=== PATIENT | female | born 1955 | race Caucasian/White ===

== ENCOUNTER 2019-06-21 15:39 | Outpatient (CLI) | payer OTHER, SELFPAY ==
[2019-06-21 16:39] LABS: Hemoglobin A1C 6.9 % (<5.7)
== END 2019-06-21 15:40 | disposition home or self-care (01) ==
LOC: ANHLAB 15:41
PROVIDERS: PCP Family Medicine Adolescent Medicine; Visit Provider Family Medicine Adolescent Medicine
DX: E11.9 Type 2 diabetes mellitus without complications (principal)
CPT/HCPCS: 36415; 83036

== ENCOUNTER 2019-09-19 20:06 | Emergency (ER) | payer OTHER, SELFPAY ==
--- NOTE | ~2019-09-19 | CT_ITS ---
EXAMINATION: CT brain wo con DATE: 09/19/2019 21:02 INDICATION: Facial numbness TECHNIQUE: Computed tomography (CT) of the head was performed without intravenous contrast. Sagittal and coronal reconstructions were performed. The mA was adjusted according to patient size. Iterative reconstruction technique was employed. The dose-length product was 681.00 mGy-cm. COMPARISON: head CT dated 05/04/2018 FINDINGS: No acute intracranial hemorrhage, acute infarction or abnormal extra axial fluid collection. Ventricl es are normal and symmetric. No mass/mass effect. The orbits, paranasal sinuses and mastoid air cells are normal. IMPRESSION: 1. Normal brain. No acute intracranial process. Reviewed, dictated and finalized at location A.
[2019-09-19 20:11] VITALS: BP 165/114; PULSE 100; RESP 14; TEMP 36.5; O2SAT 98
--- NOTE | 2019-09-19 20:33 | ED.GENADULT ---
HPI - General Adult General Chief complaint: Neuro Symptoms/Deficit Stated complaint: left sided numbness Time Seen by Provider: 09/19/19 20:33 Source: patient and family Mode of arrival: ambulatory Limitations: no limitations History of Present Illness HPI narrative: Patient is a 64-year-old female who presents for evaluation of lip numbness that is now resolved. Patient states that she was eating dinner approximately 1 hour ago when she felt some numbness in her lip on the left. Patient denies any vision changes, difficulty chewing or difficulty speaking. There were no changes in her speech. Patient went to the restroom to see if she had any signs of a stroke and she did not notice any facial droop. Patient states the lip numbness lasted approximately 5 minutes before resolving. No associated chest pain. Patient decided to seek care at the emergency department and started to experience a left-sided headache behind her left eye, patient states that this is typical of her ocular migraines and consistent with migraine history. No thunderclap sensation. No visual changes. No numbness in her arms or lower extremities. No difficulty with ambulation. Patient has no history of stroke, the patient son does have a history of 2 strokes, possible moyamoya diagnosis and pacemaker. Related Data Allergies Allergy/AdvReac Type Severity Reaction Status Date / Time morphine Allergy Mild Rash Unverified 07/18/08 14:38 cefadroxil Allergy Unknown Rash Verified 06/29/17 13:22 meloxicam Allergy Unknown Rash Verified 06/29/17 13:22 NFA Allergy Unknown Uncoded 09/26/02 14:07 Review of Systems Review of Systems: Narrative: CONSTITUTIONAL: Denies fever, chills, or sweats. EYES: Denies visual changes, redness, or discharge. CARDIOVASCULAR: Denies chest pain, palpitations, or edema. RESPIRATORY: Denies cough or dyspnea. GASTROINTESTINAL: Denies abdominal pain, nausea, vomiting, or diarrhea. SKIN: Denies rash or itching. MUSCULOSKELETAL: Denies back pain, joint pain, or myalgia. NEUROLOGIC: Reports mild headache behind left eye, denies any current numbness or weakness PMFSH Past Medical History Medical History (Updated 09/19/19 @ 22:04 by Rachelle Feldman MD) Ankylosing spondylitis Arthritis Diabetes Hypertension Family History Family History (Updated 06/29/17 @ 13:29 by DOCTOR UNKNOWN) Sibling Family history of cardiovascular disease Family history of malignant neoplasm of breast Grandparent Cerebrovascular accident Family history of congestive heart failure Mother Family history of arthritis Family history of lung cancer Father Malignant neoplasm of prostate Social History Social History Smoking status: Never smoker Alcohol intake: never Gender identity (if verbalized by the patient): Female Exam Narrative: Exam Narrative: GENERAL: Awake, alert, conversant HEAD: Normocephalic, atraumatic. EYES: PERRLA and EOMI. ENT: Nares clear, no rhinorrhea or epistaxis. Mucous membranes moist. NECK: Supple. CHEST: No respiratory distress, breathing even and non labored HEART: Regular rate, sinus rhythm ABDOMEN:Non distended, non tender EXTREMITIES: Normal range of motion. No edema. SKIN: Warm, dry, no rash. NEURO:No focal deficits. Alert and oriented x3. Finger to nose intact bilaterally. EOMs intact without nystagmus. No facial droop/asymmetry noted bilaterally. Grimace intact. Intact sensation in face. Hearing intact bilaterally. Shoulder shrug intact. Strength 5/5 bilateral upper extremities. Strength 5/5 bilateral lower extremities. Reflexes 2+ patellar. Ambulatory with a narrow base, steady gait, no ataxia. Course Vital Signs Vital signs: Vital Signs Temperature 36.5 C 09/19/19 20:11 Pulse Rate 100 09/19/19 20:11 Respiratory Rate 14 09/19/19 20:11 Blood Pressure 165/114 H 09/19/19 20:11 Pulse Oximetry 98 09/19/19 20:11 Temperature 36.5 C 0
--- NOTE | 2019-09-19 20:42 | ECG_ITS ---
Measurements Intervals Advance Rate: 74 P: -7 DE: 159 QRS: 38 QRSD: 95 T: 56 QT: 393 QTc: 438 Interpretive Statements SINUS RHYTHM POOR R WAVE PROGRESSION, ANTERIOR LEADS NONSPECIFIC ST ELEVATION- ANTEROLATERAL LEADS BASELINE ARTIFACT- I, II, III, AVR, AVL, AVF BORDERLINE ECG Electronically Signed On 09-20-2019 6:58:55 CDT by Artur Childers D.O.
[2019-09-19] MEDS: SODIUM CHLORIDE 0.9% IV 1,000 ML 999 ML IV CONT (20:54)
[2019-09-19 21:05] LABS: Basophils Absolute Auto 0.1 K/mm3 (0.0-0.1); Basophils Percent Auto 0.7 % (0.2-1.2); Eosinophils Absolute Auto 0.3 K/mm3 (0-0.3); Eosinophils Percent Auto 2.9 % (0-4.4); Hemoglobin 15.1 g/dL (12.0-15.0); Immature Granulocyte Absolute 0.03 K/mm3 (0.00-0.031); Immature Granulocyte Percent A 0.3 % (0-0.5); Lymphocytes Absolute Auto 3.38 K/mm3 (0.9-3.2); Lymphocytes Percent Auto 31.9 % (18.3-44.2); Mean Corpuscular HGB Conc 32.8 g/dl (32-36); Mean Corpuscular Hemoglobin 29.6 pg (26-34); Mean Corpuscular Volume 90.2 fl (80-100); Mean Platelet Volume 9.3 fl (7.4-10.4); Monocytes Absolute Auto 0.6 K/mm3 (0.1-0.6); Monocytes Percent Auto 5.8 % (2.6-8.5); Neutrophils Absolute Auto 6.2 K/mm3 (1.3-6.7); Neutrophils Percent Auto 58.4 % (45.5-73.1); Platelet Count Result 278 k/mm3 (150-375); Red Cell Distribution Width 12.2 % (11.5-14.5); White Blood Count 10.6 K/mm3 (4.5-10.0)
[2019-09-19 21:15] LABS: INR 1.1; Prothrombin Time 13.5 Seconds (11.1-14.7)
[2019-09-19 21:16] LABS: Partial Thromboplastin Time 27.5 SECONDS (22.3-36.8)
[2019-09-19 21:19] LABS: Blood Urea Nitrogen 19 mg/dL (7-17); Calcium 9.7 mg/dL (8.4-10.2); Carbon Dioxide 28 mmol/L (22-30); Chloride 102 mmol/L (98-107); Estimated CRCL calculation 86 ml/min; Estimated Glomerular Filt Rate > 60; Glucose 159 mg/dL (65-105); Potassium 3.9 mmol/L (3.4-5.0); Sodium 137 mmol/L (137-145)
[2019-09-19 21:29] LABS: Troponin I < 0.012 ng/mL (0.000-0.034)
[2019-09-19 22:21] VITALS: BP 154/88; PULSE 84; RESP 21; O2SAT 97
--- NOTE | 2019-09-19 22:22 | PC.NURSE ---
pulled under wrong patient. corrected in the pyxis.
== END 2019-09-19 22:22 | disposition home or self-care (01) ==
PROVIDERS: Emergency Provider Emergency Medicine; PCP Family Medicine Adolescent Medicine
DX: R20.0 Anesthesia of skin (principal); M45.9 Ankylosing spondylitis of unspecified sites in spine; M19.90 Unspecified osteoarthritis, unspecified site; E11.9 Type 2 diabetes mellitus without complications; I10 Essential (primary) hypertension
CPT/HCPCS: 36415; 70450; 80048; 84484; 85025; 85610; 85730; 93005; 96360; 99284; J7030

== ENCOUNTER 2019-11-08 07:44 | Outpatient (CLI) | payer OTHER, SELFPAY ==
--- NOTE | ~2019-11-08 | CT_ITS ---
EXAMINATION: CT abdomen pelvis w con INDICATION: Right lower quadrant pain TECHNIQUE: Computed tomographic images of the abdomen and pelvis were obtained after the administrati on of 100 cc of Omnipaque 350 intravenous contrast. The dose-length product (DLP) was 1575.95 mGy-cm. Automated exposure control and iterative reconstruction technique were employed. COMPARISON: MRI, 10/19/2017 FINDINGS: Minimal dependent atelectasis is present in the lung bases. The heart size is normal. The g allbladder is surgically absent. There is mild enlargement of the common bile duct and central intrah epatic ducts which is likely due to post cholecystectomy state. Hypoattenuating lesions of the liver measure up to 3.5 cm in the right hepatic lobe. The spleen, pancreas, and adrenal glands are normal. Cysts of the kidneys measure up to 1.3 cm on the right. There is no free intraperitoneal gas or evide nce of bowel obstruction. The appendix is normal. There is mild infiltration of the small bowel mesen ivelisse with a single lymph node of the small bowel measuring up to 10 mm in short axis. There is a smal l fat-containing umbilical hernia. There is moderate lumbar spondylosis. There are bridging osteophyt es at multiple levels in the lower thoracic spine, consistent with diffuse idiopathic skeletal hypero stosis (DISH). IMPRESSION: 1. No CT correlate for the patient's symptoms. 2. Indeterminate liver lesions measuring up to 3.5 cm, likely benign in the absence of known malignan cy. Further evaluation by MRI without and with contrast is recommended. 3. Infiltration of the small bowel mesentery with single lymph node measuring upper limits of normal in size. Finding is nonspecific and could reflect mesenteric adenitis, lymphoma, or less likely metas tatic disease or desmoid. Consider low-dose follow-up CT of the abdomen in six months. Reviewed, dictated and finalized at location A. IMPRESSION: 1. No CT correlate for the patient's symptoms. 2. Indeterminate liver lesions measuring up to 3.5 cm, likely benign in the abs ence of known malignancy. Further evaluation by MRI without and with contrast i s recommended. 3. Infiltration of the small bowel mesentery with single lymph node measuring u pper limits of normal in size. Finding is nonspecific and could reflect mesente maria teresa adenitis, lymphoma, or less likely metastatic disease or desmoid. Consider low-dose follow-up CT of the abdomen in six months.
[2019-11-08 08:08] LABS: Estimated Glomerular Filt Rate > 60
== END 2019-11-08 07:45 | disposition home or self-care (01) ==
PROVIDERS: PCP Family Medicine Adolescent Medicine; Visit Provider Family Medicine Adolescent Medicine
DX: R10.31 Right lower quadrant pain (principal)
CPT/HCPCS: 36415; 74177; Q9967

== ENCOUNTER 2019-11-21 12:28 | Outpatient (CLI) | payer OTHER, SELFPAY ==
--- NOTE | ~2019-11-21 | XR_ITS ---
EXAMINATION: XR sacroiliac jt inj w imag BI DATE: 11/21/2019 13:34 INDICATION: Bilateral sacroiliac joint pain. TECHNIQUE: The procedure including the risks, benefits, and alternatives was discussed with the patie nt. Risks discussed included bleeding and infection. The patient understood the risks and agreed to p roceed. The skin overlying the left sacroiliac joint was prepped and draped in usual sterile fashion . Anesthetic was administered with 1% lidocaine subcutaneously. A 22 G needle was advanced under fl uoroscopic guidance into the joint. Injection of 1 mL of Omnipaque 240 confirmed intra-articular pos ition of the needle. Subsequently, injectate consisting of 2 mL 10 mg/mL Kenalog and 1 mL 1% lidocai ne was instilled. The needle was removed and the entry site was cleaned and dressed. The skin overlying the right sacroiliac joint was prepped and draped in usual sterile fashion. Anest hetic was administered with 1% lidocaine subcutaneously. A 22 G needle was advanced under fluoroscop ic guidance into the joint. Injection of 1 mL of Omnipaque 240 confirmed intra-articular position of the needle. Subsequently, injectate consisting of 2 mL 10 mg/mL Kenalog and 1 mL 1% lidocaine was i nstilled. The needle was removed and the entry site was cleaned and dressed. There were no immediate complications. Fluoroscopy exposure time was 0.2 minutes. The total number of images was 2. FINDINGS: Real-time fluoroscopy demonstrates the needle in the left joint. Patient's pain prior to pr ocedure:5/10. Patient's pain following the procedure: 3/10. Real-time fluoroscopy demonstrates the needle in the right joint. Patient's pain prior to procedure:5 /10. Patient's pain following the procedure: 2/10. IMPRESSION: 1. Left sacroiliac joint injection of local anesthetic and steroid with decrease in the patient's pre senting pain. 2. Right sacroiliac joint injection of local anesthetic and steroid with decrease in the patient's pr esenting pain. Reviewed, dictated and finalized at location A. IMPRESSION: 1. Left sacroiliac joint injection of local anesthetic and steroid with decreas e in the patient's presenting pain. 2. Right sacroiliac joint injection of local anesthetic and steroid with decrea se in the patient's presenting pain.
== END 2019-11-21 12:29 | disposition home or self-care (01) ==
PROVIDERS: PCP Family Medicine Adolescent Medicine; Visit Provider Family Medicine Adolescent Medicine
DX: M53.3 Sacrococcygeal disorders, not elsewhere classified (principal)
CPT/HCPCS: 27096; G0260; J3301; Q9966

== ENCOUNTER 2019-11-29 07:46 | Outpatient (CLI) | payer OTHER, SELFPAY ==
--- NOTE | ~2019-11-29 | CT_ITS ---
EXAMINATION: CT abdomen wo/w con DATE: 11/29/2019 08:16 INDICATION: Liver masses. TECHNIQUE: Computed tomography (CT) of the abdomen was performed without and with 100 mL Omnipaque 35 0 intravenous contrast. Automated exposure control and iterative reconstruction technique were employ ed. The dose-length product was 3160.53 mGy-cm. COMPARISON: CT abdomen and pelvis 11/08/2019 FINDINGS: The visualized portions of the lung bases demonstrate mild atelectasis. No pleural effusion . The heart size is normal. No pericardial effusion. There is diffuse hepatic steatosis. There are cy sts in the liver measuring up to 3.2 cm in right hepatic lobe. There are changes of cholecystectomy. The spleen, pancreas, and adrenal glands are normal. There is cortical thinning of the kidneys. There are cysts in the kidneys measuring up to 13 mm on the right. There is diverticulosis of the colon wi thout evidence of diverticulitis. There are no dilated loops of bowel. The appendix is normal. There is stable fat stranding at the root of the small bowel mesentery. There is an 11 x 17 mm mesenteric l ymph node. There is no free intraperitoneal fluid. There is moderate lumbar spondylosis. There are br idging endplate osteophytes at multiple levels in the thoracic spine, consistent with diffuse idiopat hic skeletal hyperostosis (DISH). IMPRESSION: 1. Benign cysts in the liver. 2. Stable fat stranding at the root of the small bowel mesentery, likely mesenteric panniculitis. 3. Stable mildly enlarged mesenteric lymph node, likely reactive. Reviewed, dictated and finalized at location B. IMPRESSION: 1. Benign cysts in the liver. 2. Stable fat stranding at the root of the small bowel mesentery, likely mesent joel panniculitis. 3. Stable mildly enlarged mesenteric lymph node, likely reactive.
== END 2019-11-29 07:47 | disposition home or self-care (01) ==
LOC: ANHIMG 07:47
PROVIDERS: PCP Family Medicine Adolescent Medicine; Visit Provider Family Medicine Adolescent Medicine
DX: D37.6 Neoplasm of uncertain behavior of liver, gallbladder and bile ducts (principal); K76.89 Other specified diseases of liver; R59.0 Localized enlarged lymph nodes
CPT/HCPCS: 74170; Q9967

== ENCOUNTER 2020-03-08 07:00 | Outpatient (CLI) | payer OTHER, SELFPAY ==
--- NOTE | ~2020-03-08 | CT_ITS ---
EXAMINATION: CT brain w con EXAM DATE: 03/08/2020 07:31 INDICATION: Migraine headaches. TECHNIQUE: Spiral CT of the head was performed following intravenous injection of 100 mL intravenous Omnipaque 350 solution. Axial, coronal and sagittal images were reviewed. The dose-length product ( DLP) for this examination was 605.33 mGy-cm. The exposure was tailored according to patient size, an d iterative reconstruction (ASIR) was used as additional dose reduction technique. Comparison is made to prior examination from 09/19/2019. FINDINGS: There is no acute intraparenchymal hemorrhage. No evidence of intraparenchymal brain mass lesion. No evidence of acute infarction. There is no mass effect or midline shift. The ventricles are normal in size. There are no extra-axial collections. There are no acute calvarial fractures. T he orbits are unremarkable. Soft tissue is unremarkable. The visualized sinuses and mastoid air david ls are well aerated. There are no areas of abnormal enhancement on the postcontrast images. IMPRESSION: 1. Unremarkable head CT examination. Reviewed, dictated and finalized at location A. NCED PRACTICE NURSE PSYCHOTHERAPIST
[2020-03-08 07:24] LABS: Estimated Glomerular Filt Rate > 60
== END 2020-03-08 07:01 | disposition home or self-care (01) ==
LOC: ANHIMG 07:01
PROVIDERS: PCP Family Medicine Adolescent Medicine; Visit Provider Family Medicine Adolescent Medicine
DX: G43.909 Migraine, unspecified, not intractable, without status migrainosus (principal)
CPT/HCPCS: 70460; Q9967

== ENCOUNTER 2020-06-19 08:21 | Outpatient (CLI) | payer OTHER, SELFPAY ==
[2020-06-19 17:22] LABS: Hemoglobin A1C 6.9 % (<5.7)
[2020-06-19 18:31] LABS: Alanine Aminotransferase 32 U/L (4-35); Albumin Level 3.8 g/dL (3.5-5.1); Alkaline Phosphatase 86 U/L (38-126); Anion Gap 6 mmol/L (8-16); Aspartate Amino Transferase 32 U/L (14-36); Bilirubin,Total 0.5 mg/dL (0.2-1.3); Blood Urea Nitrogen 17 mg/dL (7-17); Calcium 9.2 mg/dL (8.4-10.2); Carbon Dioxide 27 mmol/L (22-30); Chloride 105 mmol/L (98-107); Cholesterol 187 mg/dL (0-200); Estimated Glomerular Filt Rate > 60; Glucose 145 mg/dL (65-105); HDL Direct 53 mg/dL; Sodium 138 mmol/L (137-145); Triglycerides 86 mg/dL (<150)
[2020-06-19 18:43] LABS: LDL Cholesterol Direct 114 mg/dL
== END 2020-06-19 08:22 | disposition home or self-care (01) ==
LOC: ANHLAB 08:25
PROVIDERS: PCP Family Medicine Adolescent Medicine; Visit Provider Family Medicine Adolescent Medicine
DX: E11.9 Type 2 diabetes mellitus without complications (principal); E66.01 Morbid (severe) obesity due to excess calories; I10 Essential (primary) hypertension; Z13.220 Encounter for screening for lipoid disorders
CPT/HCPCS: 36415; 80053; 80061; 83036; 84443

== ENCOUNTER 2020-06-21 07:06 | Outpatient (CLI) | payer OTHER, SELFPAY ==
--- NOTE | ~2020-06-21 | CT_ITS ---
EXAMINATION: CT abdomen pelvis w con EXAM DATE: 06/21/2020 07:38 INDICATION: Enlarged mesenteric panniculitis. TECHNIQUE: Spiral CT of the abdomen and pelvis was performed following intravenous injection of 100 m L Omnipaque 350. Axial, coronal and sagittal images were reviewed. The dose-length product (DLP) fo r this examination was 1574.07 mGy-cm. The exposure was tailored according to patient size (auto mA exposure control), and iterative reconstruction (ASIR) was used as additional dose reduction techniqu e. Comparison is made to prior examination from 11/29/2019. FINDINGS: There is no interval change in the priscilla mesentery appearance, fat stranding at the mesente maria teresa root with increased number of small visible lymph nodes. The largest lymph node identified measur es 1.4 x 0.8 cm, unchanged. Superior mesenteric artery and vein extending through this are normal, no nthrombosed. There are 2 liver cysts, largest measuring 2.5 cm. The liver, spleen, adrenal glands and pancreas ar e otherwise unremarkable. There are cholecystectomy clips. Portal and splenic veins are patent. Kid neys enhance symmetrically. There is no hydronephrosis. The uterus is not identified and has likel y been surgically resected. The bladder is collapsed at time of imaging limiting evaluation. There is mild scattered arteriosclerotic disease. No retroperitoneal or pelvic lymphadenopathy. Small umbil ical fat-containing hernia. The appendix is normal. There is mild scattered colonic diverticulosis. There is no adjacent inflamm atory change to suggest diverticulitis. The stomach and small bowel are unremarkable. There is expec apolinar amount of colonic stool. No free intraperitoneal gas. The lung bases are unremarkable. Advan ruby L4-5 facet arthropathy with 4 mm anterolisthesis but no spondylolysis. Lower thoracic diffuse idi opathic skeletal hyperostosis. There are no osteoblastic or osteolytic lesions identified. IMPRESSION: 1. 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 2. Mild sigmoid diverticulosis. 3. Other chronic findings. Reviewed, dictated and finalized at location A.
== END 2020-06-21 07:07 | disposition home or self-care (01) ==
LOC: ANHIMG 07:07
PROVIDERS: PCP Family Medicine Adolescent Medicine; Visit Provider Family Medicine Adolescent Medicine
DX: D37.6 Neoplasm of uncertain behavior of liver, gallbladder and bile ducts (principal); K57.30 Diverticulosis of large intestine without perforation or abscess without bleeding; I88.0 Nonspecific mesenteric lymphadenitis
CPT/HCPCS: 74177; Q9967

== ENCOUNTER 2020-09-10 10:30 | Outpatient (RCR) | payer OTHER, SELFPAY ==
--- NOTE | 2020-07-16 16:24 | PTOPEVAL ---
INITIAL PHYSICAL THERAPY EVALUATION and PLAN OF CARE Thank you for referring Bree Montoya to [facility].? Bree is scheduled to be seen for physical therapy? 2x/week for 4 weeks. Please review, sign, date and return this plan of care DONALD. I agree with and certify that the following plan of care is medically necessary. Referring Physician Date Admitting Provider: Attending Provider: Raul Green MD Referring Provider: *PT Outpatient Evaluation Start: 07/16/20 14:53 Freq: Status: Active Protocol: Document 07/16/20 14:45 DESMOND (Rec: 07/16/20 16:23 DESMOND [id number]) Therapy Assessment Status Assessment Status Assessment Status Evaluation Outpatient Past Medical History Past Medical History Source of Past Medical History Patient Neurological History Hx Migraine Yes: will cause numbness in face,ocular migraines Cardiovascular History Hx Hypertension Yes Gastrointestinal History Hx Cholecystectomy Yes: 20 yrs ago Hx Gastroesophageal Reflux Disease Yes Musculoskeletal History Hx Fibromyalgia Yes Hx Orthopedic Surgery Yes: R calcaneus - bone spur Hx Other Musculoskeletal Disorders Yes: ankylosing spondylitis, DISH-spurring spine together Endocrine History Hx Diabetes Yes Reproductive History Hx Section Yes Hx Hysterectomy Yes Evaluation Information Problem Diagnosis LBP - piriformis muscle pain Onset worsening last 5 years Subjective Information Has had DISH for 20 plus years Query Text:As Reported By Patient/ , ankylosis spondylitis x 10 Family years - SIJ pain for at least 10 pain - worsening last 5 years - did traumatize - L ischial tuberosity - from sitting in a chair for a prolonged period of time. Has has had SIJ injections in November - didn't help. Sitting and walking both aggrevate symptoms. Unable to stand for any length of time. Heat helps it but never goes away. Walking limited from mammography building to hospital. Does see chiropractor - feels L side is higher - after an adjustment feels better for a few weeks. Deep tissue massage does help tempora
--- NOTE | 2020-08-05 09:05 | PCPTNOTE ---
Patient called & cancelled scheduled appointment this date due to work. Will continue per POC.
--- NOTE | 2020-08-15 17:07 | PTOPEVAL ---
PHYSICAL THERAPY RE EVALUATION and UPDATED PLAN OF CARE Thank you for referring Bree Montoya to [facility].? Bree has been seen x 8 visits and is making progress towards goals, but they have not been met. Bree is scheduled to be seen for physical therapy?2x/week for 4 weeks. Please review, sign, date and return this plan of care DONALD. I agree with and certify that the following plan of care is medically necessary. Referring Physician Date Admitting Provider: Attending Provider: Raul Green MD Referring Provider: Therapy Assessment Status Assessment Status Assessment Status Re-evaluation Evaluation Information Problem Diagnosis LBP - piriformis muscle pain Subjective Information Yamilet reports that she is doing Query Text:As Reported By Patient/ more patient care lately. Family Increased discomfort present in L buttock with prolonged standing - doing pt care. Still increased discomfort with walking between buildings . Did try lift - but made R shoe too tight - too uncomfortable. Discussed about possibility of having lift added to outside of shoe. Yamilet reports that she is doing her HEP 1x/day. Pain Assessment Self Report Pain Assessment Right Buttock(s) Reported Pain Level 2 Lowest Pain Intensity 2 Greatest Pain Intensity 6 Left Buttock(s) Reported Pain Level 5 Lowest Pain Intensity 3 Greatest Pain Intensity 8 Cervical and Lumbar ROM Lumbar ROM Lumbar Flexion (0-90) 40 Query Text:Active in Degrees Lumbar Extension (0-40) 15 Query Text:Active in Degrees Lumbar Lateral Flexion Right (0-40) 15 Query Text:Active in Degrees Lumbar Lateral Flexion Left (0-40) 15 Query Text:Active in Degrees Lumbar Comments discomfort with extension Palpation Assessment Palpation Palpation increased discomfort at distal aspect of sacrum L>R, piriformis L>R - increase in trigger points in L piriformis Special Test-Spine Sacral Special Test Sacral Special Tests + L standing flexion test, + L seated flexion test PT Clinical Summary Clinical Summary Protocol: PTEVCODE PT Clinical Summary Modified Oswestry LBP Questionnaire - 49% 9% improvement Bree is making some gains towards decreased buttock pain
--- NOTE | 2020-09-10 11:41 | PTOPEVAL ---
PHYSICAL THERAPY DISCHARGE SUMMARY Thank you for referring Bree Montoya to [facility].? Bree has had 11 appointments in PT. She is independent and compliant with HEP and understands purpose behind HEP. Goals have been met. Increased discussion was had in regards to obtain shoe lift for R LE to promote increased symmetry at pelvis and sacrum. She is ready for d/c from PT to HEP. I agree with Bree's discharge from PT. Referring Physician Date Admitting Provider: Attending Provider: Raul Green MD Referring Provider: Therapy Assessment Status Assessment Status Assessment Status Discharge Evaluation Information Problem Diagnosis LBP - piriformis muscle pain Subjective Information Bree requests that this be Query Text:As Reported By Patient/ her re-eval appointment. She Family states that she is doing her HEP and is looking into a massager to help with buttock pain. She feels good on days of treatment and for a few days afterwards. She is thinking that she can do the exercises and manual work on her own. Bree reports not having any R groin pain as of lately. Pain Assessment Timing of Pain Assessment Timing of Pain Assessment Assessment Pain Scale Pain Scale Used Numeric (1 - 10) Self Report Pain Assessment Right Buttock(s) Reported Pain Level 3 Lowest Pain Intensity 3 Greatest Pain Intensity 6 Left Buttock(s) Reported Pain Level 4 Lowest Pain Intensity 3 Greatest Pain Intensity 6 Pain Score Pain Score 3,4: Self Report Interventions Used Interventions Used By Clinicians Exercise Other Alleviating Interventions long discussion on obtaining shoe lift for R LE for balancing pelvis Cervical and Lumbar ROM Lumbar ROM Lumbar Flexion (0-90) 40 Query Text:Active in Degrees Lumbar Extension (0-40) 15 Query Text:Active in Degrees Lumbar Lateral Flexion Right (0-40) 10 Query Text:Active in Degrees Lumbar Lateral Flexion Left (0-40) 10 Query Text:Active in Degrees Lumbar Comments discomfort with extension Muscle Length Testing Muscle Length Testing Left Hamstring Length -28 Query Text:(90 - 90 Position) Right Hamstring Length -20 Query Text:(90 - 90 Position) Palpation Assessment Palpation Palpation Decreasing tenderness and trigger points in piriformis and gluteal muscles.
== END 2020-09-10 13:41 | disposition home or self-care (01) ==
LOC: ANHPT 10:30
PROVIDERS: PCP Family Medicine Adolescent Medicine; Visit Provider Family Medicine Adolescent Medicine
DX: M54.5 Low back pain (principal); M79.18 Myalgia, other site
CPT/HCPCS: 97014; 97035; 97110; 97140; 97162; G0283

== ENCOUNTER 2020-09-27 07:46 | Outpatient (CLI) | payer OTHER, SELFPAY ==
--- NOTE | ~2020-09-27 | MM_ITS ---
EXAMINATION: MM screening [facility] [place] HISTORY: Screening mammogram TECHNIQUE: Craniocaudal and mediolateral oblique 3-D tomosynthesis images were obtained and synthetic 2-D images were generated. CAD analysis was submitted and interpreted. COMPARISON: 03/17/2019, 09/03/2017, 06/23/2016 bilateral digital screening mammogram examinations BREAST PARENCHYMAL COMPOSITION: There are scattered areas of fibroglandular density. FINDINGS: There is a 8 x 10 mm low-density circumscribed opacity in the central right breast.. Otherwise there is no evidence of suspicious mass, calcification, or architectural distortion to sugg est malignancy in either breast. There has been no other suspicious interval change. IMPRESSION: 1. 8 x 10 mm mass in central right breast 2. Diagnostic right mammogram and right breast ultrasound examination are recommended BI-RADS Category 0: Incomplete: Needs additional imaging evaluation. Reviewed, dictated and finalized at location A. IMPRESSION: 1. 8 x 10 mm mass in central right breast 2. Diagnostic right mammogram and right breast ultrasound examination are recom mended BI-RADS Category 0: Incomplete: Needs additional imaging evaluation.
== END 2020-09-27 07:47 | disposition home or self-care (01) ==
LOC: ANHIMG 07:48
PROVIDERS: PCP Family Medicine Adolescent Medicine; Visit Provider Obstetrics & Gynecology
DX: Z12.31 Encounter for screening mammogram for malignant neoplasm of breast (principal); R92.8 Other abnormal and inconclusive findings on diagnostic imaging of breast
CPT/HCPCS: 77063; 77067

== ENCOUNTER 2020-09-30 09:46 | Outpatient (CLI) | payer OTHER, SELFPAY ==
--- NOTE | ~2020-09-30 | MMUS_ITS ---
EXAMINATION: MM diagnostic mammo unilat RT, US breast RT limited HISTORY: Follow-up right breast mass TECHNIQUE: Additional 3-D tomosynthesis images of the right breast were performed and synthetic 2-D i mages were generated. CAD analysis was submitted and interpreted. High resolution right breast ultras ound was performed. COMPARISON: Comparison to multiple prior studies sequentially, with oldest reviewed study dated 07/29. BREAST PARENCHYMAL COMPOSITION: Breast composed of scattered areas of fibroglandular density. FINDINGS: MAMMOGRAPHIC FINDINGS: There is a radiolucent circumscribed mass in the upper central aspect of the right breast, middle thi rd. There are no suspicious calcifications or architectural distortion. ULTRASOUND: Limited right breast ultrasound: At 12:00, 4 cm from the nipple, there is a 9 mm cyst corresponding t o the mass identified on mammography. No other discrete masses are identified. IMPRESSION: 1. Benign 9 mm right breast cyst corresponding to mammographic abnormality at 12:00, 4 cm from the ni pple. No evidence for malignancy. 2. Routine yearly screening mammogram and regular clinical breast examination are recommended. BI-RADS Category 2: Benign finding(s). Reviewed, dictated and finalized at location A. IMPRESSION: 1. Benign 9 mm right breast cyst corresponding to mammographic abnormality at 1 2:00, 4 cm from the nipple. No evidence for malignancy. 2. Routine yearly screening mammogram and regular clinical breast examination a re recommended. BI-RADS Category 2: Benign finding(s).
== END 2020-09-30 09:47 | disposition home or self-care (01) ==
LOC: ANHIMG 09:48
PROVIDERS: PCP Family Medicine Adolescent Medicine; Visit Provider Obstetrics & Gynecology
DX: R92.8 Other abnormal and inconclusive findings on diagnostic imaging of breast (principal)
CPT/HCPCS: 76642; 77065

== ENCOUNTER 2020-10-18 13:22 | Outpatient (CLI) | payer OTHER, SELFPAY ==
[2020-10-18 16:25] LABS: Alanine Aminotransferase 52 U/L (4-35); Alkaline Phosphatase 85 U/L (38-126); Anion Gap 7 mmol/L (8-16); Aspartate Amino Transferase 44 U/L (14-36); Bilirubin,Total 0.6 mg/dL (0.2-1.3); Blood Urea Nitrogen 15 mg/dL (7-17); Calcium 9.3 mg/dL (8.4-10.2); Carbon Dioxide 28 mmol/L (22-30); Chloride 103 mmol/L (98-107); Estimated Glomerular Filt Rate > 60; Glucose 210 mg/dL (65-110); Potassium 3.8 mmol/L (3.4-5.0); Sodium 138 mmol/L (137-145)
[2020-10-18 16:42] LABS: Vitamin D 25 Hydroxy 15.8 ng/mL
== END 2020-10-18 13:23 | disposition home or self-care (01) ==
LOC: ANHLAB 13:24
PROVIDERS: PCP Family Medicine Adolescent Medicine; Visit Provider Physician Assistant
DX: E11.9 Type 2 diabetes mellitus without complications (principal); Z13.220 Encounter for screening for lipoid disorders; I10 Essential (primary) hypertension; Z79.899 Other long term (current) drug therapy
CPT/HCPCS: 36415; 80053; 82306; 83036

== ENCOUNTER 2020-10-21 08:16 | Outpatient (CLI) | payer OTHER, SELFPAY ==
[2020-10-21 11:15] LABS: Cholesterol 185 mg/dL (0-200); HDL Direct 49 mg/dL; Triglycerides 111 mg/dL (<150)
[2020-10-21 11:27] LABS: LDL Cholesterol Direct 96 mg/dL
== END 2020-10-21 08:17 | disposition home or self-care (01) ==
PROVIDERS: PCP Family Medicine Adolescent Medicine; Visit Provider Physician Assistant
DX: E11.9 Type 2 diabetes mellitus without complications (principal); I10 Essential (primary) hypertension; Z13.220 Encounter for screening for lipoid disorders; Z79.899 Other long term (current) drug therapy
CPT/HCPCS: 36415; 80061

== ENCOUNTER 2021-02-12 08:20 | Outpatient (CLI) | payer OTHER, SELFPAY ==
--- NOTE | ~2021-02-12 | XR_ITS ---
EXAMINATION: XR wrist LT min 3V EXAM DATE: 02/12/2021 09:47 INDICATION: M25.532 -left wrist, ulnar side swelling, pain, no trauma. TECHNIQUE: Left wrist frontal, frontal with ulnar deviation, oblique and lateral projections obtained and reviewed. There is no prior study for comparison. FINDINGS: Left wrist scapholunate joint space is maintained. There is moderate carpometacarpal, mild triscaphe primary osteoarthritis. There are no acute fractures or dislocations identified. There is no subcutaneous gas. The soft tissue is unremarkable. There are no radiopaque foreign bodies. IMPRESSION: Left carpometacarpal, triscaphe osteoarthritis. Reviewed, dictated and finalized at location A. ER COUNSELOR
--- NOTE | ~2021-02-12 | XR_ITS ---
EXAMINATION: XR shoulder LT min 2V DATE: 02/12/2021 09:45 INDICATION: Left shoulder pain. TECHNIQUE: 4 views of left shoulder were obtained. COMPARISON: None. FINDINGS: Bone alignment is normal. No fracture. There is moderate osteoarthritis of glenohumeral desire nt and moderate osteoarthritis of acromioclavicular joint. IMPRESSION: 1. Polyarticular osteoarthritis. Reviewed, dictated and finalized at location A. ER/WAITRESS SECOND CLASS
== END 2021-02-12 08:21 | disposition home or self-care (01) ==
LOC: ANHIMG 08:23
PROVIDERS: PCP Family Medicine Adolescent Medicine; Visit Provider Orthopaedic Surgery
DX: M19.032 Primary osteoarthritis, left wrist (principal); M19.012 Primary osteoarthritis, left shoulder
CPT/HCPCS: 73030; 73110

== ENCOUNTER 2021-10-21 13:54 | Outpatient (CLI) | payer OTHER, SELFPAY ==
--- NOTE | ~2021-10-21 | MM_ITS ---
EXAMINATION: MM screening jairo BI w [facility] HISTORY: Screening TECHNIQUE: Craniocaudal and mediolateral oblique 3-D tomosynthesis images were obtained and synthetic 2-D images were generated. CAD analysis was submitted and interpreted. COMPARISON: Comparison to multiple prior studies sequentially, with oldest reviewed study dated 06/23. BREAST PARENCHYMAL COMPOSITION: There are scattered areas of fibroglandular density. FINDINGS: There is no evidence of suspicious mass, calcification, or architectural distortion to sugg est malignancy in either breast. There has been no suspicious interval change. IMPRESSION: 1. No mammographic evidence of malignancy. 2. Recommend routine screening mammography in one year. BI-RADS Category 1: Negative Reviewed, dictated and finalized at location A.
== END 2021-10-21 13:55 | disposition home or self-care (01) ==
PROVIDERS: PCP Family Medicine Adolescent Medicine; Visit Provider Obstetrics & Gynecology
DX: Z12.31 Encounter for screening mammogram for malignant neoplasm of breast (principal)
CPT/HCPCS: 77063; 77067

== ENCOUNTER 2021-11-11 10:17 | Outpatient (CLI) | payer OTHER, SELFPAY ==
[2021-11-11 12:25] LABS: Alanine Aminotransferase 51 U/L (6-35); Alkaline Phosphatase 104 U/L (38-126); Anion Gap 10 mmol/L (8-16); Aspartate Amino Transferase 40 U/L (14-36); Bilirubin,Total 0.7 mg/dL (0.2-1.3); Blood Urea Nitrogen 13 mg/dL (7-17); Calcium 9.1 mg/dL (8.4-10.2); Carbon Dioxide 26 mmol/L (22-30); Chloride 99 mmol/L (98-107); Cholesterol 174 mg/dL (0-200); Estimated Glomerular Filt Rate > 60; Glucose 315 mg/dL (65-110); HDL Direct 46 mg/dL; Potassium 3.8 mmol/L (3.4-5.0); Sodium 135 mmol/L (137-145); Triglycerides 112 mg/dL (<150)
[2021-11-11 12:36] LABS: LDL Cholesterol Direct 100 mg/dL
[2021-11-11 13:11] LABS: Hemoglobin A1C 9.3 % (<5.7)
== END 2021-11-11 10:18 | disposition home or self-care (01) ==
PROVIDERS: PCP Family Medicine Adolescent Medicine; Visit Provider Family Medicine Adolescent Medicine
DX: E11.65 Type 2 diabetes mellitus with hyperglycemia (principal); I10 Essential (primary) hypertension; Z13.220 Encounter for screening for lipoid disorders
CPT/HCPCS: 36415; 80053; 80061; 83036

== ENCOUNTER 2022-02-06 00:15 | Day surgery (SDC) | payer OTHER, SELFPAY ==
[2022-01-30 10:29] VITALS: BMI 46.5
[2022-02-06 08:23] VITALS: BP 141/82; PULSE 59; RESP 18; TEMP 36; O2SAT 99; BMI 45.7
[2022-02-06 08:47] LABS: Glucose Point of Care 220 mg/dl (65-105)
--- NOTE | 2022-02-06 08:48 | WPDANESEPPF ---
Anes - Initial Pre Proc Eval Procedure: Operation Date: 02/06/22 09:30 Proposed Procedures p Screening Colonoscopy - Damien Caro MD Date/Time: 02/06/22 08:48 Surgeon: Damien Caro MD Pre Op Diagnosis: neoplasm screening, hx colon polyps Patient Data Age: 66 Gender: F Height: 1.65 m Weight: 124.6 kg Last Vital Signs Temp 96.8 F L 02/06/22 08:23 Pulse 59 L 02/06/22 08:23 Resp 18 02/06/22 08:23 BP 141/82 H 02/06/22 08:23 Pulse Ox 99 02/06/22 08:23 O2 Del Method Room Air 02/06/22 08:23 Allergies Allergy/AdvReac Type Severity Reaction Status Date / Time morphine Allergy Mild Rash Verified 01/30/22 10:36 cefadroxil Allergy Unknown Rash Verified 01/30/22 10:36 meloxicam Allergy Unknown Rash Verified 01/30/22 10:36 Sulfa (Sulfonamide Allergy Unknown Unknown Verified 01/30/22 10:36 Antibiotics) metformin AdvReac Severe Diarrhea Verified 01/30/22 10:36 lisinopril AdvReac Intermediate cough Verified 01/30/22 10:36 NFA Allergy Unknown unknown Uncoded 01/30/22 10:36 Home Medications Medication Instructions Recorded Confirmed Type amlodipine 5 mg tablet 5 mg PO DAILY #90 tabs 11/03/21 01/30/22 Rx celecoxib 200 mg capsule 200 mg PO DAILY #90 caps 11/03/21 01/30/22 Rx duloxetine 60 mg capsule,delayed 60 mg PO BID #180 caps 11/03/21 01/30/22 Rx release glimepiride 2 mg tablet 2 mg PO QAM #90 tabs 11/03/21 01/30/22 Rx losartan 100 1 tablet PO DAILY #90 tabs 11/03/21 01/30/22 Rx mg-hydrochlorothiazide 12.5 mg tablet propranolol 160 mg capsule,24 160 mg PO DAILY #90 caps 11/03/21 01/30/22 Rx hr,extended release dulaglutide 3 mg/0.5 mL 3 mg (0.5 mL) subcut WEEKLY #2 mL 11/12/21 01/30/22 Rx subcutaneous pen injector (TrulicThinkglue) blood-glucose meter (OneTouch #1 ea 11/13/21 01/07/22 Rx Ultra2 Meter kit) sodium,potassium,mag sulfates 17.5 See Rx Instructions PO .COMPLEX 12/26/21 01/07/22 Rx gram-3.13 gram-1.6 gram oral soln #354 mL (Suprep Bowel Prep Kit) Laboratory Tests 02/06/22 08:44 POC Capillary Glucose 220 mg/dl H mg/dl (65-105) Patient hx anesthesia problems: none Family hx anesthesia problems: none Results Review: All pre-operative results and documents have been reviewed as part of the pre-operative evaluation. [facility] Past Medical History Medical History (Updated 01/07/22 @ 14:23 by Babs Godoy MA) Ankylosing spondylitis Diabetes Hypertension Surgical History Surgical History (Updated 07/03/21 @ 11:56 by Raul Green MD) History of adenoidectomy History of section 1983 History of cholecystectomy 1998 History of tonsillectomy Family History Family History Sibling Family history of cardiovascular disease Family history of malignant neoplasm of breast Grandparent Cerebrovascular accident Family history of congestive heart failure Mother Family history of arthritis Family history of lung cancer Father Malignant neoplasm of prostate Social History Social History (Updated 07/03/21 @ 11:13 by Viv Oviedo MA) Smoking status: Never smoker Second hand tobacco smoke exposure: No Alcohol intake: never Substance use: never Substance use type: does not use Living arrangements: with family Gender identity (if verbalized by the patient): Female Sexual Orientation (if Verbalized by the Patient): Straight or Heterosexual Spiritual care concerns: No Agree to blood products: Yes Anes - Eval Final PreProcedure Day of Procedure 02/06/22 08:48 Patient weight: morbidly obese Airway: Mallampati scale class II ASA classification: III Anesthesia type and monitoring: general GIVS and standard monitoring Results Review: All pre-operative results and documents have been reviewed as part of the pre-operative evaluation. Informed Consent: The patient's anesthetic plan and its attendant risks and benefits we
[2022-02-06] MEDS: LACTATED RINGERS 1,000 ML 150 ML IV CONT (09:04)
--- NOTE | 2022-02-06 09:16 | PM.HPGS ---
History of Present Illness History of Present Illness Consent: Risks, benefits, and alternatives have been discussed and questions answered. Patient agrees to proceed with procedure. Chief complaint: neoplasm screening, hx colon polyps Narrative: Bree Montoya is a 66 year old female Presents for screening colonoscopy. Patient has a history of colon polyps in 2012 and again in 2016. Patient reports that her current weight appetite and bowel movements are normal. She denies abdominal pain. She has had no bleeding. Family history is noncontributory. Review of Systems Review of Systems: Review of systems noncontributory. [facility] Past Medical History Medical History (Updated 02/06/22 @ 09:17 by Damien Caro MD) Ankylosing spondylitis Diabetes Hypertension Surgical History Surgical History (Updated 07/03/21 @ 11:56 by Raul Green MD) History of adenoidectomy History of section 1984 History of cholecystectomy 1998 History of tonsillectomy Family History Family History Sibling Family history of cardiovascular disease Family history of malignant neoplasm of breast Grandparent Cerebrovascular accident Family history of congestive heart failure Mother Family history of arthritis Family history of lung cancer Father Malignant neoplasm of prostate Social History Social History (Updated 07/03/21 @ 11:13 by Viv Oviedo MA) Smoking status: Never smoker Second hand tobacco smoke exposure: No Alcohol intake: never Substance use: never Substance use type: does not use Living arrangements: with family Gender identity (if verbalized by the patient): Female Sexual Orientation (if Verbalized by the Patient): Straight or Heterosexual Spiritual care concerns: No Agree to blood products: Yes Meds Home Medications and Allergies Home Medications Medication Instructions Recorded Confirmed Type amlodipine 5 mg tablet 5 mg PO DAILY #90 tabs 11/03/21 01/30/22 Rx celecoxib 200 mg capsule 200 mg PO DAILY #90 caps 11/03/21 01/30/22 Rx duloxetine 60 mg capsule,delayed 60 mg PO BID #180 caps 11/03/21 01/30/22 Rx release glimepiride 2 mg tablet 2 mg PO QAM #90 tabs 11/03/21 01/30/22 Rx losartan 100 1 tablet PO DAILY #90 tabs 11/03/21 01/30/22 Rx mg-hydrochlorothiazide 12.5 mg tablet propranolol 160 mg capsule,24 160 mg PO DAILY #90 caps 11/03/21 01/30/22 Rx hr,extended release dulaglutide 3 mg/0.5 mL 3 mg (0.5 mL) subcut WEEKLY #2 mL 11/12/21 01/30/22 Rx subcutaneous pen injector (Trulicity) blood-glucose meter (OneTouch #1 ea 11/13/21 01/07/22 Rx Ultra2 Meter kit) sodium,potassium,mag sulfates 17.5 See Rx Instructions PO .COMPLEX 12/26/21 01/07/22 Rx gram-3.13 gram-1.6 gram oral soln #354 mL (Suprep Bowel Prep Kit) Allergies Allergy/AdvReac Type Severity Reaction Status Date / Time morphine Allergy Mild Rash Verified 01/30/22 10:36 cefadroxil Allergy Unknown Rash Verified 01/30/22 10:36 meloxicam Allergy Unknown Rash Verified 01/30/22 10:36 Sulfa (Sulfonamide Allergy Unknown Unknown Verified 01/30/22 10:36 Antibiotics) metformin AdvReac Severe Diarrhea Verified 01/30/22 10:36 lisinopril AdvReac Intermediate cough Verified 01/30/22 10:36 NFA Allergy Unknown unknown Uncoded 01/30/22 10:36 Vital Signs Vital Signs - 24 hr 02/06/22 08:23 Temperature 96.8 F L Pulse Rate 59 L Respiratory Rate 18 Blood Pressure 141/82 H Pulse Oximetry 99 Oxygen Delivery Room Air Exam Narrative: Physical exam reveals patient to be alert. Vital signs stable. HEENT exam is unremarkable. Patient is anicteric. Lungs are clear to auscultation and percussion. Heart is without murmur or extra sounds. Abdomen bowel sounds present soft nontender with no organomegaly. Digital external rectal exam is normal. Assessment and Plan Assessment and plan (1) History of colon poly
[2022-02-06 09:44] VITALS: BP 124/64; PULSE 60; RESP 16; O2SAT 97
[2022-02-06 09:54] VITALS: BP 123/73; PULSE 60; RESP 18; O2SAT 97
[2022-02-06 10:04] VITALS: BP 138/78; PULSE 55; RESP 16; O2SAT 96
== END 2022-02-06 10:14 | disposition home or self-care (01) ==
PROVIDERS: PCP Family Medicine Adolescent Medicine; Visit Provider Internal Medicine Gastroenterology
PROC: 0DJD8ZZ Inspection of Lower Intestinal Tract, Via Natural or Artificial Opening Endoscopic (ICD-10-PCS; CPT 45378; principal; 2022-02-06 09:30)
DX: Z12.11 Encounter for screening for malignant neoplasm of colon (principal); K64.8 Other hemorrhoids; K57.30 Diverticulosis of large intestine without perforation or abscess without bleeding; Z86.010 Personal history of colon polyps; I10 Essential (primary) hypertension; E11.9 Type 2 diabetes mellitus without complications; M45.9 Ankylosing spondylitis of unspecified sites in spine; Z79.84 Long term (current) use of oral hypoglycemic drugs; Z79.899 Other long term (current) drug therapy; E66.01 Morbid (severe) obesity due to excess calories; Z68.42 Body mass index [BMI] 45.0-49.9, adult
CPT/HCPCS: 45378; 82948; J2704; J7120

== ENCOUNTER 2022-02-19 13:09 | Outpatient (CLI) | payer OTHER, SELFPAY ==
--- NOTE | ~2022-02-19 | MR_ITS ---
EXAMINATION: MR knee RT wo con DATE: 02/19/2022 16:20 INDICATION: Right knee pain. TECHNIQUE: Magnetic resonance imaging (MRI) of the right knee was performed without intravenous contr ast. Sequences included axial PD-weighted FS FSE, coronal PD-weighted FSE and PD-weighted FS FSE, sag ittal PD-weighted FSE, and sagittal T2-weighted FS FSE. COMPARISON: Right knee radiographs 01/07/2022 FINDINGS: Medial compartment: There is a radial tear posterior horn of medial meniscus. There is full-thickness cartilage loss of f emoral condyle involving the central and posterior articular surface. There is focal full-thickness c artilage loss of tibial condyle involving the medial articular surface with moderate subchondral alpesh a-like marrow signal intensity. Osteophytes are noted. Lateral compartment: Lateral meniscus is normal. There is partial-thickness cartilage loss of tibial condyle, deep at the central articular surface. There is partial-thickness cartilage loss of femoral condyle, deep at the central subarticular surface. Osteophytes are noted. Patellofemoral compartment: There is full-thickness cartilage loss of patellar medial facet, median ridge, and lateral facet with mild subchondral edema-like marrow signal intensity. There is full-thickness cartilage loss of troch mynor involving the lateral and central articular surface with mild subchondral edema-like marrow signa l intensity. Osteophytes are noted. Ligaments and tendons: There is a complete tear of anterior cruciate ligament. There is a partial tear of posterior fusion l igament. There are changes of partial tears of medial collateral ligament and fibular collateral liga ment proximally. There is mild patellar tendinopathy. Fluid: There is a small knee joint effusion. There is trace fluid in a Hugo's cyst. There is mild prepatell ar and superficial size. There is a 2.8 x 2.5 x 1.3 cm multiloculated ganglion cyst adjacent to the o rigin of lateral head of gastrocnemius tendon. IMPRESSION: 1. Severe chondrosis of medial and patellofemoral compartments and moderate chondrosis of lateral com partment. 2. Tear of medial meniscus. 3. Complete tear of anterior cruciate ligament. Partial tear of posterior cruciate ligament. 4. Small knee joint effusion. Reviewed, dictated and finalized at location A. K OFF PERSON IMPRESSION: 1. Severe chondrosis of medial and patellofemoral compartments and moderate cho ndrosis of lateral compartment. 2. Tear of medial meniscus. 3. Complete tear of anterior cruciate ligament. Partial tear of posterior cruci ate ligament. 4. Small knee joint effusion.
== END 2022-02-19 13:10 | disposition home or self-care (01) ==
LOC: ANHIMG 13:10
PROVIDERS: PCP Family Medicine Adolescent Medicine; Visit Provider Orthopaedic Surgery
DX: M17.11 Unilateral primary osteoarthritis, right knee (principal); S83.241A Other tear of medial meniscus, current injury, right knee, initial encounter; S83.511A Sprain of anterior cruciate ligament of right knee, initial encounter; X58.XXXA Exposure to other specified factors, initial encounter; M25.461 Effusion, right knee
CPT/HCPCS: 73721

== ENCOUNTER 2022-06-23 16:01 | Outpatient (CLI) | payer OTHER, SELFPAY ==
[2022-06-23 16:24] LABS: Hematocrit 43.9 % (37.0-47.0); Hemoglobin 14.5 g/dL (12.0-15.0); Mean Corpuscular Hemoglobin 29.5 pg (26-34); Mean Corpuscular Volume 89.2 fl (80-100); Mean Platelet Volume 9.1 fl (7.4-10.4); Platelet Count Result 295 k/mm3 (150-375); Red Blood Count 4.92 M/mm3 (4.2-5.4); Red Cell Distribution Width 12.4 % (11.5-14.5); White Blood Count 12.2 K/mm3 (4.5-10.0)
[2022-06-23 16:40] LABS: Alanine Aminotransferase 26 U/L (6-35); Albumin Level 4.2 g/dL (3.5-5.1); Alkaline Phosphatase 99 U/L (38-126); Anion Gap 6 mmol/L (8-16); Aspartate Amino Transferase 25 U/L (14-36); Bilirubin,Total 0.6 mg/dL (0.2-1.3); Blood Urea Nitrogen 17 mg/dL (7-17); Calcium 9.3 mg/dL (8.4-10.2); Carbon Dioxide 28 mmol/L (22-30); Chloride 103 mmol/L (98-107); Estimated Glomerular Filt Rate > 60; Glucose 181 mg/dL (65-110); Potassium 3.8 mmol/L (3.4-5.0); Sodium 137 mmol/L (137-145)
[2022-06-23 16:49] LABS: Hemoglobin A1C 7.8 % (<5.7)
[2022-06-26 23:40] LABS: Vitamin D 1,25 (OH)2 Total 55 pg/mL (18-72); Vitamin D2 1,25 (OH)2 <8 pg/mL; Vitamin D3 1,25 (OH)2 55 pg/mL
== END 2022-06-23 16:02 | disposition home or self-care (01) ==
PROVIDERS: PCP Family Medicine Adolescent Medicine; Visit Provider Family Medicine Adolescent Medicine
DX: R79.89 Other specified abnormal findings of blood chemistry (principal); R53.83 Other fatigue; R20.2 Paresthesia of skin; E11.65 Type 2 diabetes mellitus with hyperglycemia; I10 Essential (primary) hypertension
CPT/HCPCS: 36415; 80053; 82652; 83036; 84443; 85027

== ENCOUNTER 2022-11-23 09:00 | Outpatient (RCR) | payer MEDICARE, SELFPAY ==
--- NOTE | 2022-10-26 15:57 | PTOPEVAL1 ---
Assessment and note entered by Tono Cota, PT Evaluation Information Assessment Status Evaluation Diagnosis Right knee Osteoarthritis Onset 10/03/22 Subjective Information Reports that she has had multiple falls in the past year. Some were due to environmental but some also from the knee giving out. She has had therapy for in the past on her back. She had issues with SI joint dysfunction. She gets pain in her left glute. Reported Pain Level Pain Score 2: Self Report Assessment PT Clinical Summary Patient presents with signs and symptoms consistent with knee OA and decreased functional hip mobility. She will benefit from skilled therapy to address these deficits to improve gait and stability for ADL performance. Plan of Care Interventions Gait Training,Manual Therapy,Neuro Re-education, Therapeutic Activities,Therapeutic Exercise PT Services Indicated Yes These treatments will address the objective and functional deficits as defined above. The patient will be advanced safely and appropriately in order for the patient to progress towards his/her prior level of function. Additional exercises will be introduced and as well as a comprehensive home exercise program upon discharge, if needed, ?to ensure carryover of functional gains achieved in the clinic. This treatment plan has been reviewed and agreement upon by the patient.
--- NOTE | 2022-10-26 15:58 | OPREHPOC ---
Outpatient Therapy Plan of Care This is a Multidisciplinary Plan of Care that may contain components documented by all disciplines (PT, OT, and ST.) PT Problem 1 PT Problem #1 Knowledge Deficit PT Goal 1 Goal Orange with LE mobility HEP PT Problem 2 PT Problem #2 Pain PT Goal 1 Goal Patient will report no pain in lumbar spine after 3 minutes of ambulation PT Problem 3 PT Problem #3 Impaired Range of Motion PT Goal 1 Goal Improve R knee terminal extension to 0 degrees for terminal stance PT Goal 2 Goal Improve R hip extension to 15 degrees to reduce extension stress on lumbar spine PT Problem 4 PT Problem #4 Impaired Gait PT Goal 1 Goal Patient will ambulate with improved terminal stance of gait indicated by lack of compensated Trendelenburg on L LE
--- NOTE | 2022-11-20 10:16 | PCPTNOTE ---
Had a scheduling misunderstanding and is coming on 11/23/22 for re-evaluation.
--- NOTE | 2022-11-23 09:48 | PTOPDC ---
Assessment and note entered by Tono Cota, PT Evaluation Information Assessment Status Discharge Diagnosis Right knee Osteoarthritis Onset 10/03/22 Subjective Information Reports that she has had multiple falls in the past year. Some were due to environmental but some also from the knee giving out. She has had therapy for in the past on her back. She had issues with SI joint dysfunction. She gets pain in her left glute. Reported Pain Level Pain Score 2,2,0: Self Report Assessment PT Clinical Summary Patient has made excellent progress in hip ROM and knee strength. Her gait cycle indicates decreased ER compensation with foot progression and swing phase but still lacks full terminal knee extension . She demonstrates understanding and compliance with HEP and is suitable for D/C to HEP at this time. Plan of Care PT Services Indicated Yes
--- NOTE | 2022-11-23 09:49 | OPREHPOC ---
Outpatient Therapy Plan of Care This is a Multidisciplinary Plan of Care that may contain components documented by all disciplines (PT, OT, and ST.) PT Problem 1 PT Problem #1 Knowledge Deficit PT Goal 1 Goal Harding with LE mobility HEP Target Visit 8 Progress Met PT Problem 2 PT Problem #2 Pain PT Goal 1 Goal Patient will report no pain in lumbar spine after 3 minutes of ambulation Target Visit 8 Progress Met PT Problem 3 PT Problem #3 Impaired Range of Motion PT Goal 1 Goal Improve R knee terminal extension to 0 degrees for terminal stance Target Visit 8 Progress Partially Met Comment Improved by 2 degrees PT Goal 2 Goal Improve R hip extension to 15 degrees to reduce extension stress on lumbar spine Target Visit 8 Progress Met PT Problem 4 PT Problem #4 Impaired Gait PT Goal 1 Goal Patient will ambulate with improved terminal stance of gait indicated by lack of compensated Trendelenburg on L LE Target Visit 8 Progress Met
--- NOTE | 2022-11-23 11:00 | PTOPDC ---
Assessment and note entered by Tono Cota, PT Evaluation Information Assessment Status Discharge Diagnosis Right knee Osteoarthritis Onset 10/03/22 Subjective Information Reports that since starting therapy she has seen improvement in knee ROM and overall function. She feels she has learned a lot from therapy and has been compliant with her HEP to continue to address deficits. Overall feels improved but not perfect. Feels she will be able to complete HEP on own moving forward. Reported Pain Level Pain Score 2,2,0: Self Report Assessment PT Clinical Summary Patient has made excellent progress in hip ROM and knee strength. Her gait cycle indicates decreased ER compensation with foot progression and swing phase but still lacks full terminal knee extension. She demonstrates understanding and compliance with HEP and is suitable for D/C to HEP at this time. Plan of Care PT Services Indicated Yes
== END 2022-11-23 11:05 | disposition home or self-care (01) ==
LOC: ANHPT 09:00
PROVIDERS: PCP Family Medicine Adolescent Medicine; Visit Provider Orthopaedic Surgery
DX: M17.11 Unilateral primary osteoarthritis, right knee (principal)
CPT/HCPCS: 97110; 97112; 97161; 97530

== ENCOUNTER 2023-01-18 13:43 | Outpatient (CLI) | payer MEDICARE, SELFPAY ==
[2023-01-18 14:59] LABS: Mean Corpuscular HGB Conc 33.3 g/dl (32-36); Mean Corpuscular Hemoglobin 29.7 pg (26-34); Mean Corpuscular Volume 89.2 fl (80-100); Mean Platelet Volume 8.9 fl (7.4-10.4); Platelet Count Result 263 k/mm3 (150-375); Red Blood Count 4.71 M/mm3 (4.2-5.4); Red Cell Distribution Width 12.2 % (11.5-14.5); White Blood Count 8.2 K/mm3 (4.5-10.0)
[2023-01-18 15:16] LABS: Alanine Aminotransferase 26 U/L (6-35); Alkaline Phosphatase 83 U/L (38-126); Anion Gap 6 mmol/L (8-16); Aspartate Amino Transferase 31 U/L (14-36); Bilirubin,Total 0.8 mg/dL (0.2-1.3); Blood Urea Nitrogen 11 mg/dL (7-17); CRP 0.5 mg/dL (<1.0); Calcium 8.7 mg/dL (8.4-10.2); Carbon Dioxide 28 mmol/L (22-30); Chloride 102 mmol/L (98-107); Creatine Kinase 51 U/L (30-135); Estimated Glomerular Filt Rate > 60; Glucose 117 mg/dL (65-110); Potassium 3.4 mmol/L (3.4-5.0); Sodium 136 mmol/L (137-145); Uric Acid 4.5 mg/dL (2.5-7.5)
[2023-01-18 15:20] LABS: Complement C3 134 mg/dL (88-165); Rheumatoid Factor < 12.0 IU/ML (<12)
[2023-01-18 15:32] LABS: Appearance Urine Cloudy (Clear); Bacteria Urine 2+ /hpf; Bilirubin Urine Negative (Negative); Blood Urine Negative (Negative); Color Urine Dark Yellow (Yellow); Glucose Urine UA Negative (Negative); Ketones Urine Trace mg/dL (Negative); Leukocyte Esterase Ur 1+ LEU/UL (Negative); Nitrate Urine Negative (Negative); Protein Urine Trace mg/dL (Negative); RBC Urine 0-2 /hpf (0-2); Specific Grav Ur 1.025 (1.001-1.035); Squamous Epithelial Cell Urine Few /hpf (Few); WBC Urine 21-50 /hpf
[2023-01-18 16:05] LABS: Add Urine Microscopic? YES
[2023-01-18 16:12] LABS: Erythrocyte Sedimentation Rate 15 mm/hr (0-20)
[2023-01-20 13:08] LABS: Cyclic Citrullinated Peptide <16 Units (<20)
[2023-01-20 14:48] LABS: NIL 0.02 IU/mL; Quantiferon TB Plus, 1T NEGATIVE (NEGATIVE); TB1-NIL 0.11 IU/mL; TB2-NIL 0.09 IU/mL
[2023-01-20 20:03] LABS: JO 1 Antibody <1.0; SS-A <1.0; SS-B <1.0; Scleroderma 70 Antibody <1.0
== END 2023-01-18 13:44 | disposition home or self-care (01) ==
PROVIDERS: PCP Family Medicine Adolescent Medicine; Referring Provider Family Medicine Adolescent Medicine
DX: M06.09 Rheumatoid arthritis without rheumatoid factor, multiple sites (principal); M45.9 Ankylosing spondylitis of unspecified sites in spine; R35.0 Frequency of micturition
CPT/HCPCS: 36415; 80053; 81001; 82550; 84550; 85027; 85652; 86140; 86160; 86200; 86235; 86430; 86480; 87077; 87086; 87186

== ENCOUNTER → 2023-01-19 07:42 | Outpatient (CLI) | payer MEDICARE, SELFPAY ==
--- NOTE | ~2023-01-19 | XR_ITS ---
Thoracic spine: Clinical Indication: Arthralgia AP and lateral views were performed. No fracture is seen. There is normal alignment of the vertebrae. The intervertebral disc spaces appe ar normal. There is DISH of the thoracic spine. Paravertebral soft tissues appear normal. Impression: DISH of the thoracic spine. Reviewed, dictated and finalized at location . Impression: DISH of the thoracic spine.
--- NOTE | ~2023-01-19 | XR_ITS ---
Bilateral Hands Technique: Bilateral PA, oblique, and lateral views, and ball-catcher's view were obtained. Clinical History: Rheumatoid arthritis Findings: No acute fracture or dislocation is seen. Osseous alignment is anatomic. There are mild deg enerative changes scattered throughout the interphalangeal joints of both hands. No erosive changes a re identified.. Soft tissues are unremarkable. Impression: Mild scattered osteoarthritic changes involving the interphalangeal joints of both hands. Reviewed, dictated and finalized at location M. Impression: Mild scattered osteoarthritic changes involving the interphalangeal joints of b oth hands.
--- NOTE | ~2023-01-19 | XR_ITS ---
Cervical Spine: AP, lateral, open-mouth views Clinical History: Pain Findings: The normal lordotic curve is maintained. No fracture seen. There is minimal grade 1 anterol isthesis of C4 over C5. There is moderate to advanced degenerative disc narrowing at C5-C6 and C6-C7. There is mild facet joint degenerative change in the cervical spine. Pre-vertebral soft tissues are unremarkable. Impression: Minimal grade I anterolisthesis of C4-C5. Mera-no-[id number] degenerative spondylosis, as above. Reviewed, dictated and finalized at location M. Impression: Minimal grade I anterolisthesis of C4-C5. [id number] degenerative spondylosis, as above.
--- NOTE | ~2023-01-19 | XR_ITS ---
AP and oblique views of the SI joints CLINICAL HISTORY: Ankylosing spondylitis FINDINGS: Bilateral SI joints and hip joints appear unremarkable. No sclerosis or erosive change. No ankylosis. No degenerative change. Soft tissues are unremarkable. IMPRESSION: Unremarkable exam. Reviewed, dictated and finalized at location . IMPRESSION: Unremarkable exam.
--- NOTE | ~2023-01-19 | XR_ITS ---
Lumbosacral Spine: AP and lateral views Clinical History: Ankylosing spondylitis Findings: The normal lordotic curve is maintained. No fracture identified. There is 7 mm anterolisthe sis of L4 over L5. There is severe facet arthropathy at L4-L5 and L5-S1. There are mild degenerative disc changes throughout the lumbar spine. The sacroiliac joints are normally outlined. Impression: 7 mm anterolisthesis of L4 over L5. Severe facet arthropathy at L4-L5 and L5-S1. Reviewed, dictated and finalized at location M. Impression: 7 mm anterolisthesis of L4 over L5. Severe facet arthropathy at L4-L5 and L5-S1.
== END ==
DX: M48.14 Ankylosing hyperostosis [Forestier], thoracic region (principal); M06.9 Rheumatoid arthritis, unspecified; M43.03 Spondylolysis, cervicothoracic region; M12.88 Other specific arthropathies, not elsewhere classified, other specified site
CPT/HCPCS: 72040; 72072; 72100; 72202; 73130

== ENCOUNTER → 2023-01-20 08:01 | Outpatient (CLI) | payer MEDICARE, SELFPAY ==
--- NOTE | ~2023-01-20 | XR_ITS ---
EXAMINATION: XR ankle RT 2V, XR foot RT min 3V, XR foot LT min 3V, XR ankle LT 2V DATE: 01/20/2023 08:52 INDICATION: Ankylosing spondylitis and rheumatoid arthritis presenting with chronic multiple joint pa in. TECHNIQUE: 1. Anteroposterior and lateral view of the left ankle were obtained. 2. Dorsoplantar, two oblique and lateral views of the left foot were obtained. 3. Anteroposterior and lateral view of the right ankle were obtained. 4. Dorsoplantar, two oblique and lateral views of the right foot were obtained. COMPARISON: None. FINDINGS: Normal alignment at the right foot and ankle. 25 degree left hallux valgus with moderate osteoarthrit is at the right first metatarsophalangeal joint. Otherwise normal alignment at the left foot and ankl e. No fracture. Additional mild to moderate polyarticular osteoarthritis at multiple joints in the mi d and forefoot and mild osteoarthritis at the bilateral ankles and joints of the bilateral hindfeet. No erosions to suggest inflammatory arthritis. No ankle joint effusion. Bilateral Achilles and planta r calcaneal spurs, more prominent on the left. IMPRESSION: 1. Bilateral mild to moderate polyarticular osteoarthritis, most prominent at the mid and forefeet. N o erosions to suggest inflammatory arthritis. 2. Bilateral Achilles and plantar calcaneal spurs. Reviewed, dictated and finalized at location A. IMPRESSION: 1. Bilateral mild to moderate polyarticular osteoarthritis, most prominent at t he mid and forefeet. No erosions to suggest inflammatory arthritis. 2. Bilateral Achilles and plantar calcaneal spurs. IMPRESSION: 1. Bilateral mild to moderate polyarticular osteoarthritis, most prominent at t he mid and forefeet. No erosions to suggest inflammatory arthritis. 2. Bilateral Achilles and plantar calcaneal spurs. IMPRESSION: 1. Bilateral mild to moderate polyarticular osteoarthritis, most prominent at t he mid and forefeet. No erosions to suggest inflammatory arthritis. 2. Bilateral Achilles and plantar calcaneal spurs.
--- NOTE | ~2023-01-20 | XR_ITS ---
Right Knee Technique: AP and lateral standing views were obtained. Clinical History: Ankylosing spondylitis Findings: No fracture or dislocation is seen. Moderate to advanced tricompartmental degenerative spur ring is present. Soft tissues are unremarkable. No joint effusion is seen. Impression: Moderate to advanced tricompartmental degenerative spurring, worst at the patellofemoral compartment. Reviewed, dictated and finalized at location . Impression: Moderate to advanced tricompartmental degenerative spurring, worst at the webb lofemoral compartment.
--- NOTE | ~2023-01-20 | XR_ITS ---
AP view of the pelvis and AP and lateral views of the bilateral hips Clinical history: Pain Findings: No acute fracture or dislocation is seen. Osseous alignment is anatomic. There is minimal d egenerative change of both hip joints. Bilateral SI joints appear intact. Soft tissues are unremarkab le. Impression: Minimal degenerative change of both hip joints. Reviewed, dictated and finalized at location M. Impression: Minimal degenerative change of both hip joints.
--- NOTE | ~2023-01-20 | XR_ITS ---
Left Knee Technique: AP and lateral standing views were obtained. Clinical History: Ankylosing spondylitis Findings: No fracture or dislocation is seen. Osseous alignment is anatomic. There is moderate tricom partmental degenerative spurring. Soft tissues are unremarkable. No joint effusion is seen. Impression: Moderate tricompartmental degenerative spurring. Reviewed, dictated and finalized at [facility]. Impression: Moderate tricompartmental degenerative spurring.
--- NOTE | ~2023-01-20 | XR_ITS ---
Left Shoulder Technique: AP and axillary views were obtained. Clinical History: Ankylosing spondylitis Findings: No fracture or dislocation is seen. Osseous alignment is anatomic. There is mild degenerati ve change of the AC joint. There is moderate degenerative change of the glenohumeral joint. Soft tiss ues are unremarkable. Impression: Moderate glenohumeral joint degenerative change. Mild AC joint degenerative change. Reviewed, dictated and finalized at location M. Impression: Moderate glenohumeral joint degenerative change. Mild AC joint degenerative change.
--- NOTE | ~2023-01-20 | XR_ITS ---
Right Shoulder Technique: AP and axillary views were obtained. Clinical History: Ankylosing spondylitis Findings: No fracture or dislocation is seen. Osseous alignment is anatomic. There is minimal degener ative changes of the glenohumeral and acromial clavicular joints. Soft tissues are unremarkable. Impression: Minimal degenerative changes, as above. Reviewed, dictated and finalized at [facility]. Impression: Minimal degenerative changes, as above.
== END ==
PROVIDERS: PCP Family Medicine Adolescent Medicine
DX: M06.9 Rheumatoid arthritis, unspecified (principal); M45.9 Ankylosing spondylitis of unspecified sites in spine; M77.32 Calcaneal spur, left foot; M77.31 Calcaneal spur, right foot; M15.9 Polyosteoarthritis, unspecified
CPT/HCPCS: 73030; 73521; 73560; 73600; 73630

== ENCOUNTER 2023-02-05 14:51 | Emergency (ER) | payer MEDICARE, SELFPAY ==
[2023-02-05 15:28] VITALS: BP 125/83; PULSE 65; RESP 16; TEMP 36.7; O2SAT 97
[2023-02-05 15:32] VITALS: BP 125/83; PULSE 65; RESP 16; TEMP 36.7; O2SAT 97
--- NOTE | 2023-02-05 16:33 | ED.URI ---
HPI - URI/Sore Throat General Chief Complaint: Upper Respiratory Infection Stated Complaint: Sore Throat;Earcahe;Cough Time Seen by Provider: 02/05/23 16:33 History of Present Illness HPI Narrative: 67-year-old female presented for complaint of sore throat for 3 days, then started with a cough and bilateral ear pressure since last night. She denies shortness of breath, wheezing, nausea, vomiting, fevers or chills. She is not taking anything for symptoms. Denies sick contacts. Tested negative for covid at the onset. Related Data Allergies Allergy/AdvReac Type Severity Reaction Status Date / Time morphine Allergy Mild Rash Verified 02/05/23 15:30 cefadroxil Allergy Unknown Rash Verified 02/05/23 15:30 meloxicam Allergy Unknown Rash Verified 02/05/23 15:30 Sulfa (Sulfonamide Allergy Unknown Unknown Verified 02/05/23 15:30 Antibiotics) metformin AdvReac Severe Diarrhea Verified 02/05/23 15:30 lisinopril AdvReac Intermediate cough Verified 02/05/23 15:30 Review of Systems Review of Systems: CONSTITUTIONAL: Denies body aches, fever, chills, or sweats. EYES: Denies visual changes, redness, or discharge. ENT: reports sore throat, otalgia. CARDIOVASCULAR: Denies chest pain, palpitations, or edema. RESPIRATORY: reports cough Denies dyspnea. GASTROINTESTINAL: Denies abdominal pain, nausea, vomiting, or diarrhea. SKIN: Denies rash, itching, or wounds. MUSCULOSKELETAL: Denies back pain, joint pain, or myalgia. NEUROLOGIC: Denies headache PMFSH Past Medical History Medical History Ankylosing spondylitis Diabetes Hypertension Surgical History Surgical History History of adenoidectomy History of section 1983 History of cholecystectomy 1998 History of tonsillectomy Family History Family History Sibling Family history of cardiovascular disease Family history of malignant neoplasm of breast Grandparent Cerebrovascular accident Family history of congestive heart failure Mother Family history of arthritis Family history of lung cancer Father Malignant neoplasm of prostate Social History Social History Smoking status: Never smoker Second hand tobacco smoke exposure: No Alcohol intake: never Substance use: never Substance use type: does not use Lack of Transportation: No Lack of Food: Never True Current Housing: I Have Housing Concerned About Future Housing: No Difficulty Paying Gas/Electric Bills: No Difficulty Paying for Meds: No Currently Unemployed: No Education: Associate Degree Difficulty w/ Childcare or Family Care: No Living arrangements: with family Occupation/Education: occupation Gender identity (if verbalized by the patient): Female Sexual Orientation (if Verbalized by the Patient): Straight or Heterosexual Spiritual care concerns: No Agree to blood products: Yes Exam Narrative: GENERAL: mildly Ill-appearing, no acute distress. EYES: conjunctivae clear ENT: Mucous membranes moist. TMs pearly romero with normal light reflex bilaterally; no tragal tenderness. Oropharynx mildly erythematous without lesions. No drooling, no hoarseness, no trismus, uvula midline. No tripod positioning, hot potato voice, or soft palate swelling. NECK: Supple. No lymphadenopathy CHEST: Clear to auscultation, breath sounds equal. No respiratory distress, speaks in full sentences. HEART: Regular rate and rhythm. No murmur heard. SKIN: Warm, dry, no rash. NEURO: Alert and oriented x3. Course Course Emergency Course: Patient is aware of diagnosis, understands and agrees to treatment plan. Anticipatory guidance given. Patient agrees to follow-up as directed and is aware of reasons to seek care at the emergency department. Portions of th
== END 2023-02-05 17:04 | disposition home or self-care (01) ==
PROVIDERS: Emergency Provider Nurse Practitioner Family; PCP Family Medicine Adolescent Medicine
DX: B34.9 Viral infection, unspecified (principal); M45.9 Ankylosing spondylitis of unspecified sites in spine; E11.9 Type 2 diabetes mellitus without complications; I10 Essential (primary) hypertension
CPT/HCPCS: 87081; 87880; 99213; G0463

== ENCOUNTER 2023-04-16 10:02 | Outpatient (CLI) | payer MEDICARE, SELFPAY ==
--- NOTE | ~2023-04-16 | MM_ITS ---
EXAMINATION: MM screening [facility] BI [facility] HISTORY: Screening mammogram TECHNIQUE: Craniocaudal and mediolateral oblique 3-D tomosynthesis images were obtained and synthetic 2-D images were generated. CAD analysis was submitted and interpreted. COMPARISON: 10/21/2021, 09/22/2020, 09/27/2020, 03/17/2019 BREAST PARENCHYMAL COMPOSITION: There are scattered areas of fibroglandular density. FINDINGS: No suspicious mass, calcification, or architectural distortion are identified in either sherif ast to suggest malignancy. There has been no suspicious interval change. IMPRESSION: 1. No mammographic evidence of malignancy. 2. Recommend routine screening mammography in one year. BI-RADS Category 1: Negative Reviewed, dictated and finalized at location A. 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
== END 2023-04-16 10:03 | disposition home or self-care (01) ==
LOC: ANHIMG 10:07
PROVIDERS: PCP Family Medicine Adolescent Medicine; Visit Provider Family Medicine Adolescent Medicine
DX: Z12.31 Encounter for screening mammogram for malignant neoplasm of breast (principal)
CPT/HCPCS: 77063; 77067

== ENCOUNTER 2023-09-15 14:30 | Emergency (ER) | payer MEDICARE, SELFPAY ==
--- NOTE | 2023-09-15 14:33 | ED.URI ---
HPI - URI/Sore Throat General Chief Complaint: Upper Respiratory Infection Stated Complaint: HEADACHE/DIZZY/SINUS/COUGH Time Seen by Provider: 09/15/23 14:33 Source: patient Mode of arrival: ambulatory Limitations: no limitations History of Present Illness HPI Narrative: Patient is a 68-year-old female that presents with 1 week of cough, congestion, headache, dizziness, sinus pressure. Patient denies any fever, chills, nausea, vomiting, diarrhea. States it normally does not last this long and goes away on its own. Patient has not taken anything for symptoms. Did take COVID test at home [facility] was negative. Related Data Home Medications Medication Instructions Recorded Confirmed pioglitazone 30 mg tablet (Actos) 30 mg PO DAILY 09/15/23 09/15/23 Allergies Allergy/AdvReac Type Severity Reaction Status Date / Time Sulfa (Sulfonamide Allergy Intermediate Rash Verified 09/15/23 14:38 Antibiotics) morphine Allergy Mild Rash Verified 02/10/23 14:28 cefadroxil Allergy Unknown Rash Verified 02/10/23 14:28 meloxicam Allergy Unknown Rash Verified 02/10/23 14:28 metformin AdvReac Severe Diarrhea Verified 02/10/23 14:28 lisinopril AdvReac Intermediate cough Verified 02/10/23 14:28 Review of Systems Review of Systems: All systems reviewed & are unremarkable except as noted in HPI and below Constitutional: Constitutional: Denies body ache(s), Denies chills, Denies fatigue, Denies fever(s), Reports headache(s), Denies malaise and Denies weakness Eyes: Eyes: Denies blurry vision, Denies itchy eyes and Denies loss of vision ENT: Denies otalgia, Denies headache(s), Reports nasal congestion, Denies sinus pain, Reports sinus pressure and Reports sore throat Cardiovascular: Cardiovascular: Denies chest pain, Denies irregular heart rhythm and Denies dyspnea Respiratory: Respiratory: Reports cough and Denies dyspnea Gastrointestinal: Gastrointestinal: Denies abdominal pain, Denies diarrhea, Denies nausea and Denies vomiting Musculoskeletal: Musculoskeletal: Denies back pain, Denies myalgias and Denies arthralgias Integumentary/Breasts: Skin/Breast: Denies pruritus and Denies rash Neurologic: Denies headache(s), Denies loss of vision and Denies weakness Psychiatric: Psychiatric: Reports no additional psychiatric complaints Endocrine: Endocrine: Denies fatigue Allergic/Immunologic: Allergic/Immunologic: Denies itchy eyes PMFSH Past Medical History Medical History Ankylosing spondylitis Diabetes History of colon polyps Hypertension Surgical History Surgical History History of adenoidectomy History of section 1983 History of cholecystectomy 1998 History of tonsillectomy Family History Family History Sibling Family history of cardiovascular disease Family history of malignant neoplasm of breast Grandparent Cerebrovascular accident Family history of congestive heart failure Mother Family history of arthritis Family history of lung cancer Father Malignant neoplasm of prostate Social History Social History Smoking status: Never smoker Second hand tobacco smoke exposure: No Alcohol intake: never Substance use: never Substance use type: does not use Lack of Transportation: No Lack of Food: Never True Current Housing: I Have Housing Concerned About Future Housing: No Difficulty Paying Gas/Electric Bills: No Difficulty Paying for Meds: No Currently Unemployed: No Education: Associate Degree Difficulty w/ Childcare or Family Care: No Living arrangements: with family Occupation/Education: occupation Gender identity (if verbalized by the patient): Female Sexual Orientation (if Verbalized by the Patient): Straight or Heterosexual Spiritual care con
[2023-09-15 14:40] VITALS: BP 141/73; PULSE 67; RESP 18; TEMP 36.4; O2SAT 97
== END 2023-09-15 15:10 | disposition home or self-care (01) ==
PROVIDERS: Emergency Provider Nurse Practitioner Family; PCP Family Medicine Adolescent Medicine
DX: J06.9 Acute upper respiratory infection, unspecified (principal); R05.9 Cough, unspecified; J01.10 Acute frontal sinusitis, unspecified; E11.9 Type 2 diabetes mellitus without complications; I10 Essential (primary) hypertension
CPT/HCPCS: 99213; G0463

== ENCOUNTER 2023-09-22 14:06 | Outpatient (CLI) | payer MEDICARE, SELFPAY ==
--- NOTE | ~2023-09-22 | XR_ITS ---
XR shoulder RT min 2V Ordering provider: Steve Harrington MD History: . NO INJURY BILATERAL SHOULDER PAIN . Comparison: January 20, 2023 FINDINGS: BONES: No acute fracture or dislocation. JOINT SPACES: The acromioclavicular joint is normal. The glenohumeral joint is normal. SOFT TISSUES: Normal. IMPRESSION: No acute osseous abnormality right shoulder. Reviewed, dictated and finalized at location A.
--- NOTE | ~2023-09-22 | XR_ITS ---
XR shoulder LT min 2V Ordering provider: Steve Harrington MD History: . NO INJURY BILATERAL SHOULDER PAIN . Comparison: January 20, 2023 FINDINGS: BONES: No acute fracture or dislocation. JOINT SPACES: Osteoarthritic changes of the glenohumeral joint is noted with osteophytes seen inferio rly. . SOFT TISSUES: Normal. IMPRESSION: No acute osseous abnormality left shoulder. 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 Reviewed, dictated and finalized at location A.
== END 2023-09-22 14:07 ==
PROVIDERS: PCP Family Medicine Adolescent Medicine; Visit Provider Orthopaedic Surgery
DX: M19.012 Primary osteoarthritis, left shoulder (principal); M25.511 Pain in right shoulder
CPT/HCPCS: 73030

== ENCOUNTER 2023-11-08 08:04 | Outpatient (CLI) | payer MEDICARE, SELFPAY ==
--- NOTE | ~2023-11-08 | XR_ITS ---
AP view of the pelvis and AP and lateral views of the left hip Clinical history: Pain Findings: No acute fracture or dislocation is seen. Osseous alignment is anatomic. There is minimal d egenerative change of both hip joints. Soft tissues are unremarkable. Impression: Minimal degenerative change of both hip joints. Reviewed, dictated and finalized at location . Impression: Minimal degenerative change of both hip joints.
== END 2023-11-08 08:05 ==
PROVIDERS: PCP Family Medicine Adolescent Medicine; Visit Provider Orthopaedic Surgery
DX: M16.0 Bilateral primary osteoarthritis of hip (principal)
CPT/HCPCS: 73502

== ENCOUNTER 2024-12-20 11:40 | Outpatient (CLI) | payer MEDICARE, SELFPAY ==
--- NOTE | ~2024-12-20 | XR_ITS ---
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 Comparison: None Findings: Grade 1 anterolisthesis of L4 on L5, no fracture is identified. Moderate loss of disc height throughout. Soft tissues unremarkable Impression: No acute abnormality. Reviewed, dictated and finalized at location A. Impression: No acute abnormality.
== END 2024-12-20 11:41 | disposition home or self-care (01) ==
LOC: MICIMG 11:42
PROVIDERS: PCP Family Medicine Adolescent Medicine; Visit Provider Family Medicine
DX: M43.16 Spondylolisthesis, lumbar region (principal); M51.369 Other intervertebral disc degeneration, lumbar region without mention of lumbar back pain or lower extremity pain
CPT/HCPCS: 72110

== ENCOUNTER 2025-01-12 03:00 | Inpatient (IN) | payer MEDICARE, SELFPAY ==
[2025-01-12] VITALS (41 sets, daily range): BP systolic 87–150; BP diastolic 33–114; PULSE 66–90; RESP 8–22; TEMP 36.4–36.9; O2SAT 92–99; BMI 42.7
--- NOTE | 2025-01-12 | ECHO_ITS ---
Patient Info Name: Bree Montoya Age: 69 years : 1955 Gender: Female Ht: 66 in Wt: 284 lbs BSA: 2.52 m2 HR: 84 bpm BP: 129 / 93 mmHg Technical Quality: Fair Exam Date: 01/12/2025 10:29 AM Patient Status: O Admit Date: 01/12/2025 Exam Type: CA echo dop color flow w con Complete two-dimensional, color flow and Doppler transthoracic echocardiogram is performed with contrast to opacify the left ventricle and to improve the deliniation of the left ventricle endocardial borders. Staff Referring Physician: Landon Velásquez Landscape Architect And Planner: Alanna Vale Attending Provider: Greg Stroud Contrast/Agitated Saline Contrast/Ag. Saline: Definity Amount: 3.00 ml Summary 1. Definity contrast administered improved wall motion interpretation. 2. Left ventricular chamber dimension is mildly enlarged. 3. Basal to apical thin anteroseptum, and septum and apex are severely hypokinetic. 4. Left ventricular systolic function is moderately reduced, estimated at 40-45. 5. The left ventricular diastolic function is abnormal. 6. E/e' 19 is elevated. 7. Left atrial chamber dimension is mildly enlarged. 8. The mitral valve has a moderately calcified annulus. 9. There is mild mitral valve regurgitation. 10. There is mild tricuspid valve regurgitation. 11. Mild pulmonary hypertension, estimated pulmonary arterial systolic pressure is 41 mmHg. 12. Dilated inferior vena cava with >50% collapse upon inspiration consistent with elevated right atrial pressure, 10 mmHg. Left Ventricle Basal to apical thin anteroseptum, and septum and apex are severely hypokinetic. Left ventricular chamber dimension is mildly enlarged. Left ventricular systolic function is moderately reduced, estimated at 40-45. The left ventricular diastolic function is abnormal. Definity contrast administered improved wall motion interpretation. E/e' 19 is elevated. Right Ventricle Right ventricular chamber dimension is not well visualized. Left Atria Left atrial chamber dimension is mildly enlarged. Right Atria Right atrial chamber dimension is normal. Aortic Valve The aortic valve is trileaflet. There is no aortic valve stenosis. There is no aortic valve regurgitation. Pulmonic Valve There is no pulmonic regurgitation. Mitral Valve The mitral valve has a moderately calcified annulus. There is no mitral valve stenosis. There is mild mitral valve regurgitation. Tricuspid Valve There is mild tricuspid valve regurgitation. Mild pulmonary hypertension, estimated pulmonary arterial systolic pressure is 41 mmHg. Pericardium/Pleural There is no pericardial effusion. Inferior Vena Cava Dilated inferior vena cava with >50% collapse upon inspiration consistent with elevated right atrial pressure, 10 mmHg. Aorta The aortic root size at the sinus of Valsalva is normal. Left Ventricular Outflow Tract Name Value Normal LVOT 2D LVOT Diameter 2.3 cm LVOT Doppler LVOT Peak Velocity 99 cm/s LVOT Peak Gradient 4 mmHg LVOT Mean Gradient 2 mmHg LVOT VTI 24 cm LVOT Stroke Volume 95 ml LVOT CO 8.0 l/min LVOT CI 3.2 l/min/m2 Pulmonic Valve Name Value Normal RVOT Doppler RVOT Peak Velocity 64 cm/s RVOT Peak Gradient 2 mmHg PV Doppler PV Peak Velocity 83 cm/s PV Peak Gradient 3 mmHg Mitral Valve Name Value Normal MV Diastolic Function MV E Peak Velocity 107 cm/s MV A Peak Velocity 43 cm/s MV E/A 2.5 MV Decel Time (PW) 136 ms MV Annular TDI MV E/e' (Septal) 23.2 MV E/e' (Lateral) 16.7 MV E/e' (Average) 19.9 Tricuspid Valve Name Value Normal TV Regurgitation Doppler TR Peak Velocity 278 cm/s TR Peak Gradient 31 mmHg Estimated PAP/RSVP RA Pressure 10 mmHg <=5 PA Systolic Pressure 41 mmHg <36 RV Systolic Pressure 41 mmHg <36 Aortic Valve Name Value Normal AV Doppler AV Peak Velocity 108 cm/s AV Peak Gradient 5 mmHg AV Area (Cont Eq Sam) 3.7 cm2 AV DI (Sam) 0.91 AV Regurgitation 2D LVOT Area 4.0 cm2 Ventricles Name Value Normal LV Dimensions 2D/MM LVOT Diameter 2.3 cm LV Fractional Shortening/Ejection Fraction 2D/MM LV Diastolic Volume (4C MOD) 121 ml LV EF (4C MOD) 52 % LV Diastolic Volume (2C MOD) 107 ml LV EF (2C MOD) 45 % LV Diastolic Volume (BP MOD) 119 ml 46-106 LV Diastolic Volume Index (BP MOD) 47 ml/m2 29-61 LV Systolic Volume (BP MOD) 63 ml 14-42 LV Systolic Volume Index (BP MOD) 25 ml/m2 8-24 LV EF (BP MOD) 47 % 54-74 LV Diastolic Length (4C) 8.4 cm LV Systolic Length (4C) 7.6 cm LV Stroke Volume (4C MOD) 63 ml Atria Name Value Normal LA Dimensions LA Volume (4C A-L) 71 ml LA Volume (BP A-L) 69 ml RA Dimensions RA Systolic Major [place] Length (4C) 5.9 cm 2.2-2.8 RA Area (4C) 16.7 cm2 <=18.0 Report Signatures
--- NOTE | ~2025-01-12 | XR_ITS ---
Examination: XR chest 2V Clinical History: chest pain Comparison: None Technique: PA and Lateral Findings: Cardiomediastinal silhouette normal size and configuration. Lungs clear. No acute bony abnormality. IMPRESSION: 1. No acute cardiopulmonary findings. Reviewed, dictated and finalized at location R.
--- NOTE | ~2025-01-12 | CT_ITS ---
CTA CHEST CLINICAL HISTORY: chest pain, left arm paresthesias . COMPARISON: Chest x-ray today TECHNIQUE: Helical CTA performed from thoracic inlet to upper abdomen 100 mL Omnipaque 350 Coronal, sagittal reformats. Multiplanar MIPS CT images acquired with automatic exposure control for dose reduction DLP: 1083 mGy-cm FINDINGS: Pulmonary arteries: No PE. Thoracic Aorta: No dissection or aneurysm. Heart/pericardium: Cardiomegaly. Coronary artery calcification. RV/LV ratio: Normal. Lungs/Pleura: Clear. Tracheobronchial tree: Patent. Nodes: No enlarged nodes. Bones: No acute bony abnormality. Soft tissues: Unremarkable. Visualized upper abdomen: Hepatic steatosis. Cholecystectomy. A few renal infarcts. IMPRESSION: 1. No PE or other acute cardiopulmonary findings. Reviewed, dictated and finalized at location R.
--- NOTE | ~2025-01-12 | CT_ITS ---
CT HEAD NON-CONTRAST Clinical History: headache Comparison: CT brain 09/19/2019 Technique: Unenhanced axial images skull base to vertex Coronal, sagittal reformats CT images acquired with automatic exposure control for dose reduction DLP: 681 mGy-cm Findings: Sulci, ventricles: Unremarkable. No intracerebral hemorrhage. No evidence acute territorial infarct. Probable small meningioma left frontal vertex. Unchanged. No mass effect, midline shift. Bony calvarium intact. Visualized paranasal sinuses: Clear. Mastoid air cells: Clear. IMPRESSION: 1. No acute intracranial findings. Reviewed, dictated and finalized at location R.
--- NOTE | ~2025-01-12 | US_ITS ---
EXAMINATION: US abdomen limited DATE: 01/14/2025 13:11 INDICATION: Abnormal liver function tests. TECHNIQUE: Multiple grayscale and Doppler ultrasound images of the abdomen were obtained. COMPARISON: CT abdomen and pelvis 06/21/2020 FINDINGS: The visualized portions of the head and body of pancreas are normal. The liver is normal without focal lesion. There is normal flow in main portal vein. The gallbladder is absent. The common duct is normal and measures 3 mm. IMPRESSION: 1. Normal right upper quadrant ultrasound status post cholecystectomy. Reviewed, dictated and finalized at location E.
--- NOTE | 2025-01-12 03:08 | ECG_ITS ---
Test Date: 2025-01-12 03:12:33 Measurements Intervals [place] Rate: 80 P: 0 PA: 0 QRS: -20 QRSD: 91 T: 40 QT: 392 QTc: 453 Interpretive Statements ATRIAL FIBRILLATION WITH ABERRANT CONDUCTION OR VENTRICULAR PREMATURE COMPLEXES LOW QRS VOLTAGE IN PRECORDIAL LEADS POSSIBLE ANTERIOR MYOCARDIAL INFARCTION , OF INDETERMINATE AGE BASELINE ARTIFACT- I, II, III, AVR, AVL, V1-V3 ABNORMAL ECG No previous ECG available for comparison Electronically Signed On 01-12-2025 06:29:08 CDT by Artur Childers D.O.
[2025-01-12] MEDS: ASPIRIN 81 MG CHEWABLE TABLET 324 MG PO (03:28)
[2025-01-12 03:36] LABS: Hematocrit 41.5 % (37.0-47.0); Hemoglobin 13.7 g/dL (12.0-15.0); Immature Granulocyte Percent A 0.6 % (0-0.5); Lymphocytes Absolute Auto 3.03 K/mm3 (0.9-3.2); Mean Corpuscular HGB Conc 33.0 g/dl (32-36); Mean Corpuscular Hemoglobin 29.2 pg (26-34); Mean Corpuscular Volume 88.5 fl (80-100); Nucleated Red Blood Cells Absolute Auto 0.000 K/mm3 (0.0-0.012); Nucleated Red Blood Cells Perc 0.0 % (0.0-0.2); Platelet Count Result 244 k/mm3 (150-375); Red Blood Count 4.69 M/mm3 (4.2-5.4); White Blood Count 8.8 K/mm3 (4.5-10.0)
[2025-01-12 03:51] LABS: INR 1.1; Prothrombin Time 14.4 Seconds (11.1-14.7)
[2025-01-12 03:52] LABS: Alanine Aminotransferase 23 U/L (6-35); Albumin Level 3.9 g/dL (3.5-5.1); Alkaline Phosphatase 85 U/L (38-126); Anion Gap 8 mmol/L (4-12); Aspartate Amino Transferase 30 U/L (14-36); Bilirubin,Total 0.7 mg/dL (0.2-1.3); Blood Urea Nitrogen 24 mg/dL (7-17); Calcium 9.2 mg/dL (8.4-10.2); Carbon Dioxide 26 mmol/L (22-30); Chloride 102 mmol/L (98-107); Estimated Glomerular Filt Rate > 60; Glucose 196 mg/dL (65-110); Lipase 120 U/L (23-300); Partial Thromboplastin Time 21.9 Seconds (22.3-36.8); Potassium 3.5 mmol/L (3.4-5.0); Sodium 136 mmol/L (137-145); Total Protein 6.5 g/dL (6.3-8.2)
[2025-01-12 04:04] LABS: Troponin I 0.143 ng/mL (0.000-0.034)
--- NOTE | 2025-01-12 04:05 | ED.CHESTPAIN ---
HPI - Chest Pain General Chief Complaint: Chest Pain <Landon Velásquez DO - Last Filed: 01/12/25 07:27> Stated Complaint: chest pain rad to L arm, headache <Landon Velásquez DO - Last Filed: 01/12/25 07:27> Time Seen by Provider: 01/12/25 03:51 <Landon Velásquez - Last Filed: 01/12/25 07:27> Source: patient <Landon Velásquez DO - Last Filed: 01/12/25 07:27> Mode of arrival: ambulatory <Landon Velásquez - Last Filed: 01/12/25 07:27> Limitations: no limitations <Landon Velásquez DO - Last Filed: 01/12/25 07:27> History of Present Illness HPI narrative: Patient is a 69-year-old female presents to the emergency department accompanied by her significant other complaining of chest pain. Patient has the pain started around 8:00 p.m. last night, middle her chest, squeezing, lasted about 30 minutes and has since resolved and then returned again around 2:00 a.m and woke her from sleep. Patient was with initial chest pain she also started to feel some pain in her left face and left arm with a pins and needle sensation or left arm it has persisted ever since pain started around 8. Patient denies any injuries. 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 Patient is taking blood pressure medications. Patient denies any vomiting. Patient has associated nausea. Patient denies any history of blood clots. Patient denies unilateral extremity swelling. Patient has abdominal pain, melena, hematochezia, urinary discomfort, focal weakness. Denies difficulty breathing. <DO Brittny Young Last Filed: 01/12/25 07:27> Related Data Allergies/Adverse Reactions: Allergies Allergy/AdvReac Type Severity Reaction Status Date / Time Sulfa (Sulfonamide Allergy Intermediate Rash Verified 01/12/25 13:47 Antibiotics) morphine Allergy Mild Rash Verified 01/12/25 13:47 cefadroxil Allergy Unknown Rash Verified 01/12/25 13:47 meloxicam Allergy Unknown Rash Verified 01/12/25 13:47 metformin AdvReac Severe Diarrhea Verified 01/12/25 13:47 lisinopril AdvReac Intermediate cough Verified 01/12/25 13:47 <Landon Velásquez DO - Last Filed: 01/12/25 07:27> Review of Systems Review of Systems: A 10 system review of systems was completed on the patient and is negative except for what is stated in the HPI. Nursing and ancillary documentation was reviewed. <Landon Velásquez DO - Last Filed: 01/12/25 07:27> FOR[facility]LY [facility], [facility] Past Medical History Medical History: Medical History DDD (degenerative disc disease), lumbar History of colon polyps Ankylosing spondylitis Hypertension Diabetes <Landon Velásquez DO - Last Filed: 01/12/25 07:27> Surgical History Surgical History: Surgical History History of section 1984 History of cholecystectomy 1998 History of adenoidectomy History of tonsillectomy <Landon Velásquez DO - Last Filed: 01/12/25 07:27> Family History Family History: Family History Sibling Family history of cardiovascular disease Family history of malignant neoplasm of breast Grandparent Cerebrovascular accident Family history of congestive heart failure Mother Family history of arthritis Family history of lung cancer Father Malignant neoplasm of prostate <Landon Velásquez DO - Last Filed: 01/12/25 07:27> Social History Social History: Social History Smoking status: Never smoker Second hand tobacco smoke exposure: No Alcohol intake: never Substance use: never Substance use type: does not use Do You Feel Safe in your Home?: Yes Lack of Transportation: No Lack of Food: Never True Current Housing: I Have Housing Concerned About Future Housing: No Difficulty Paying Gas/Electric Bills: No Difficulty Paying for Meds: No Currently Unemployed: No Education: Associate Degree Difficulty w/ Childcare or Family Care: No Living arrangements: with family Occupation/Education: occupation Gender identity (if verbalized by the patient): Female Sexual Orientation (if Verbalized by the Patient): Straight or Heterosexual Spiritual care concerns: No Agree to blood products: Yes <Landon Velásquez DO - Last Filed: 01/12/25 07:27> Exam Narrative: CONST: No acute distress. Well nourished. HENMT: Head is normocephalic and atraumatic. Moist mucous membranes. No posterior oropharynx erythema. EYES: No scleral icterus. No conjunctival injection or pallor. PERRL. NECK: No meningeal signs. RESP: Able to speak in full sentences. Normal respiratory effort. CTAB. CARDIO: Regular rate. Irregularly irregular rhythm. 2+ DP and radial pulses bilaterally. GI: Nondistended. No tenderness to palpation. Soft. : No CVA tenderness to palpation. SKIN: No rashes or lesions noted on exposed skin. NEURO: Oriented x3. Moves all extremities. EXTREM/MSK/BACK: No pedal edema. PSYCH: Normal affect. <Landon Velásquez DO - Last Filed: 01/12/25 07:27> Course Vital Signs Vital signs: Vital Signs Temperature 98.4 F 01/12/25 03:12 Pulse Rate 82 01/12/25 03:12 Respiratory Rate 18 01/12/25 03:12 Blood Pressure 150/97 H 01/12/25 03:12 Pulse Oximetry 99 01/12/25 03:12 Oxygen Delivery Room Air 01/12/25 03:12 Temperature 97.6 F 01/12/25 17:44 Pulse Rate 66 01/12/25 17:44 Respiratory Rate 15 01/12/25 17:17 Blood Pressure 87/49 L 01/12/25 17:44 Pulse Oximetry 96 01/12/25 17:44 Oxygen Delivery Room Air 01/12/25 17:17 <Landon Velásquez DO - Last Filed: 01/12/25 07:27> Vital Signs Temperature 98.4 F 01/12/25 03:12 Pulse Rate 82 01/12/25 03:12 Respiratory Rate 18 01/12/25 03:12 Blood Pressure 150/97 H 01/12/25 03:12 Pulse Oximetry 99 01/12/25 03:12 Oxygen Delivery Room Air 01/12/25 03:12 Temperature 97.6 F 01/12/25 17:44 Pulse Rate 66 01/12/25 17:44 Respiratory Rate 15 01/12/25 17:17 Blood Pressure 87/49 L 01/12/25 17:44 Pulse Oximetry 96 01/12/25 17:44 Oxygen Delivery Room Air 01/12/25 17:17 <Misael Spivey MD - Last Filed: 01/12/25 18:10> MDM - Chest Pain MDM Narrative Medical decision making narrative: Patient presents with the above complaint. Initial vitals are remarkable for elevated blood pressure 150/97. Physical examination as noted above. Differential diagnosis includes was not limited to: ACS, pulmonary embolism, metabolic derangement, aortic dissection, myocarditis, pericarditis, GERD, esophageal spasm. Patient does not any focal neurological deficits, NIH stroke scale of 0. Plan discussed: Laboratory analysis, EKG, continues cardiac monitoring, continuous pulse oximetry, aspirin, CT chest. CBC is without any significant abnormalities. Coags are grossly within normal limits. Comprehensive metabolic panel reveals a BUN of 24, glucose 196. BNP is 2190. Troponin is 0.143. Lipase of 120. TSH is 4.33. Lactic acid 1.6. Magnesium 1.8. EKG is atrial fibrillation, ST elevation less than 1.5 mm in V2 V1. Heparin has not been started yet due to pending CTs to rule out any intracranial hemorrhage. Patient signed out to oncoming physician. <Landon Velásquez DO - Last Filed: 01/12/25 07:27> Patient presents with the above complaint. Initial vitals are remarkable for elevated blood pressure 150/97. Physical examination as noted above. Differential diagnosis includes was not limited to: ACS, pulmonary embolism, metabolic derangement, aortic dissection, myocarditis, pericarditis, GERD, esophageal spasm. Patient does not any focal neurological deficits, NIH stroke scale of 0. Plan discussed: Laboratory analysis, EKG, continues cardiac monitoring, continuous pulse oximetry, aspirin, CT chest. CBC is without any significant abnormalities. Coags are grossly within normal limits. Comprehensive metabolic panel reveals a BUN of 24, glucose 196. BNP is 2190. Troponin is 0.143. Lipase of 120. TSH is 4.33. Lactic acid 1.6. Magnesium 1.8. EKG is atrial fibrillation, ST elevation less than 1.5 mm in V2 V1. Heparin has not been started yet due to pending CTs to rule out any intracranial hemorrhage. Patient signed out to oncoming physician. --- (krystin) Care was signed out to me by the overnight physician with CTA chest and CT head pending. CTA chest was negative for pulmonary embolism other acute findings. CT head was negative for acute bleed. On re-evaluation patient states she is still having some chest pain. Patient most recent EKG does show nonspecific ST elevation with no evidence of acute STEMI. Patient does have a steadily increasing troponin was with her troponin increasing from 0.143-0.993. patient was started on heparin bolus and infusion the emergency department. Patient was provided additional medication for pain control. Cardiology was consulted and notified about the patient still having chest pain and increasing troponins. Initially I contacted Dr Childers and he stated he was not on-call, he also recommended discussing this case with Interventional. I did page interventional and I did discuss the case with Mana Reilly. Dr Deleon did come and evaluate the patient and did take the patient to the laboratory technical specialist. Patient will be admitted to the IMU. I did update the patient on the results of the workup and plan for treatment. All questions concerns were addressed. Critical Care Procedure Note Authorized and Performed by: Misael Spivey Total critical care time: Approximately 36 minutes Due to a high probability of clinically significant, life threatening deterioration, the patient required my highest level of preparedness to intervene emergently and I personally spent this critical care time directly and personally managing the patient. This critical care time included obtaining a history; examining the patient; pulse oximetry; ordering and review of studies; arranging urgent treatment with development of a management plan; evaluation of patient's response to treatment; frequent reassessment; and, discussions with other providers. This critical care time was performed to assess and manage the high probability of imminent, life-threatening deterioration that could result in multi-organ failure. It was exclusive of separately billable procedures and treating other patients and teaching time. Please see MDM section and the rest of the note for further information on patient assessment and treatment. <Misael Spivey MD - Last Filed: 01/12/25 18:10> Medical Records Data Attestation: I reviewed the patient's medical records. <Landon Velásquez DO - Last Filed: 01/12/25 07:27> Lab Data Attestation: I reviewed the patient's lab results. <Landon Velásquez, DO - Last Filed: 01/12/25 07:27> Result diagrams: 01/12/25 03:31 01/12/25 03:31 <Landon Velásquez DO - Last Filed: 01/12/25 07:27> Labs: Lab Results 01/12/25 01/12/25 01/12/25 Range/Units 03:31 04:29 06:27 WBC 8.8 (4.5-10.0) K/mm3 RBC 4.69 (4.2-5.4) M/mm3 Hgb 13.7 (12.0-15.0) g/dL Hct 41.5 (37.0-47.0) % MCV 88.5 (80-100) fl MCH 29.2 (26-34) pg MCHC 33.0 (32-36) g/dl RDW 13.2 (11.5-14.5) % Plt Count 244 (150-375) k/mm3 MPV 9.1 (7.4-10.4) fl Immature Gran % (Auto) 0.6 H (0-0.5) % Neut % (Auto) 54.3 (45.5-73.1) % Lymph % (Auto) 34.4 (18.3-44.2) % [place] % (Auto) 6.5 (2.6-8.5) % Eos % (Auto) 3.3 (0-4.4) % Baso % (Auto) 0.9 (0.2-1.2) % Lymph # (Auto) 3.03 (0.9-3.2) K/mm3 [place] # (Auto) 0.6 (0.1-0.6) K/mm3 Eos # (Auto) 0.3 (0-0.3) K/mm3 Baso # (Auto) 0.1 (0.0-0.1) K/mm3 Abs Immat Gran (auto) 0.05 H (0.00-0.031) K/mm3 Absolute Neuts (auto) 4.8 (1.3-6.7) K/mm3 Absolute Nucleated RBC 0.000 (0.0-0.012) K/mm3 Nucleated RBC % 0.0 (0.0-0.2) % PT 14.4 (11.1-14.7) Seconds INR 1.1 APTT 21.9 L (22.3-36.8) Seconds Sodium 136 L (137-145) mmol/L Potassium 3.5 (3.4-5.0) mmol/L Chloride 102 (98-107) mmol/L Carbon Dioxide 26 (22-30) mmol/L Anion Gap 8 (4-12) mmol/L BUN 24 H D (7-17) mg/dL Creatinine 0.75 (0.7-1.0) mg/dL Estim Creat Clear Calc Not Reportable Estimated GFR > 60 (59 - ) Glucose 196 H (65-110) mg/dL Lactic Acid 1.6 (0.7-2.0) mmol/L Calcium 9.2 (8.4-10.2) mg/dL Magnesium 1.8 (1.6-2.3) mg/dL Total Bilirubin 0.7 (0.2-1.3) mg/dL AST 30 (14-36) U/L ALT 23 (6-35) U/L Alkaline Phosphatase 85 (38-126) U/L Total Creatine Kinase 45 (30-135) U/L Troponin I 0.143 H* 0.993 H* D (0.000-0.034) ng/mL NT-Pro-B Natriuret Pep 2190 H (19.9-100) pg/mL Total Protein 6.5 (6.3-8.2) g/dL Albumin 3.9 (3.5-5.1) g/dL Lipase 120 (23-300) U/L TSH (Reflex) 4.330 (0.465-4.68) uIU/mL Free T4 1.46 (0.78-2.19) ng/dL Total T3 1.01 (0.82-1.58) NG/ML Urine Color (Yellow) Urine Appearance (Clear) Urine pH (5.0-9.0) Ur Specific [place] (1.001-1.035) Urine Protein (Negative) mg/dL Urine Glucose (UA) (Negative) mg/dL Urine Ketones (Negative) mg/dL Ur Blood (Man) (Negative) Urine Nitrate (Negative) Urine Bilirubin (Negative) Urine Urobilinogen (<2.0) mg/dL Leukocyte Esterase Rfl (Negative) MAURICIO/UL Urine RBC (0-2) /hpf Urine WBC (0-3) /hpf Ur Squamous Epith Cells (Few) /hpf Urine Bacteria /hpf Urine Casts 01/12/25 Range/Units 06:36 WBC (4.5-10.0) K/mm3 RBC (4.2-5.4) M/mm3 Hgb (12.0-15.0) g/dL Hct (37.0-47.0) % MCV (80-100) fl MCH (26-34) pg MCHC (32-36) g/dl RDW (11.5-14.5) % Plt Count (150-375) k/mm3 MPV (7.4-10.4) fl Immature Gran % (Auto) (0-0.5) % Neut % (Auto) (45.5-73.1) % Lymph % (Auto) (18.3-44.2) % [place] % (Auto) (2.6-8.5) % Eos % (Auto) (0-4.4) % Baso % (Auto) (0.2-1.2) % Lymph # (Auto) (0.9-3.2) K/mm3 [place] # (Auto) (0.1-0.6) K/mm3 Eos # (Auto) (0-0.3) K/mm3 Baso # (Auto) (0.0-0.1) K/mm3 Abs Immat Gran (auto) (0.00-0.031) K/mm3 Absolute Neuts (auto) (1.3-6.7) K/mm3 Absolute Nucleated RBC (0.0-0.012) K/mm3 Nucleated RBC % (0.0-0.2) % PT (11.1-14.7) Seconds INR APTT (22.3-36.8) Seconds Sodium (137-145) mmol/L Potassium (3.4-5.0) mmol/L Chloride (98-107) mmol/L Carbon Dioxide (22-30) mmol/L Anion Gap (4-12) mmol/L BUN (7-17) mg/dL Creatinine (0.7-1.0) mg/dL Estim Creat Clear Calc Estimated GFR (59 - ) Glucose (65-110) mg/dL Lactic Acid (0.7-2.0) mmol/L Calcium (8.4-10.2) mg/dL Magnesium (1.6-2.3) mg/dL Total Bilirubin (0.2-1.3) mg/dL AST (14-36) U/L ALT (6-35) U/L Alkaline Phosphatase (38-126) U/L Total Creatine Kinase (30-135) U/L Troponin I (0.000-0.034) ng/mL NT-Pro-B Natriuret Pep (19.9-100) pg/mL Total Protein (6.3-8.2) g/dL Albumin (3.5-5.1) g/dL Lipase (23-300) U/L TSH (Reflex) (0.465-4.68) uIU/mL Free T4 (0.78-2.19) ng/dL Total T3 (0.82-1.58) NG/ML Urine Color Yellow (Yellow) Urine Appearance Turbid H (Clear) Urine pH 5.5 (5.0-9.0) Ur Specific [place] > 1.045 H (1.001-1.035) Urine Protein Negative (Negative) mg/dL Urine Glucose (UA) Negative (Negative) mg/dL Urine Ketones Negative (Negative) mg/dL Ur Blood (Man) Negative (Negative) Urine Nitrate Positive H (Negative) Urine Bilirubin Negative (Negative) Urine Urobilinogen 1.0 (<2.0) mg/dL Leukocyte Esterase Rfl Negative (Negative) MAURICIO/UL Urine RBC 0-2 (0-2) /hpf Urine WBC 0-5 (0-3) /hpf Ur Squamous Epith Cells Few (Few) /hpf Urine Bacteria 4+ H /hpf Urine Casts 0-2 <Landon Velásquez, DO - Last Filed: 01/12/25 07:27> Lab Results 01/12/25 01/12/25 01/12/25 Range/Units 03:31 04:29 06:27 WBC 8.8 (4.5-10.0) K/mm3 RBC 4.69 (4.2-5.4) M/mm3 Hgb 13.7 (12.0-15.0) g/dL Hct 41.5 (37.0-47.0) % MCV 88.5 (80-100) fl MCH 29.2 (26-34) pg MCHC 33.0 (32-36) g/dl RDW 13.2 (11.5-14.5) % Plt Count 244 (150-375) k/mm3 MPV 9.1 (7.4-10.4) fl Immature Gran % (Auto) 0.6 H (0-0.5) % Neut % (Auto) 54.3 (45.5-73.1) % Lymph % (Auto) 34.4 (18.3-44.2) % [place] % (Auto) 6.5 (2.6-8.5) % Eos % (Auto) 3.3 (0-4.4) % Baso % (Auto) 0.9 (0.2-1.2) % Lymph # (Auto) 3.03 (0.9-3.2) K/mm3 [place] # (Auto) 0.6 (0.1-0.6) K/mm3 Eos # (Auto) 0.3 (0-0.3) K/mm3 Baso # (Auto) 0.1 (0.0-0.1) K/mm3 Abs Immat Gran (auto) 0.05 H (0.00-0.031) K/mm3 Absolute Neuts (auto) 4.8 (1.3-6.7) K/mm3 Absolute Nucleated RBC 0.000 (0.0-0.012) K/mm3 Nucleated RBC % 0.0 (0.0-0.2) % PT 14.4 (11.1-14.7) Seconds INR 1.1 APTT 21.9 L (22.3-36.8) Seconds Sodium 136 L (137-145) mmol/L Potassium 3.5 (3.4-5.0) mmol/L Chloride 102 (98-107) mmol/L Carbon Dioxide 26 (22-30) mmol/L Anion Gap 8 (4-12) mmol/L BUN 24 H D (7-17) mg/dL Creatinine 0.75 (0.7-1.0) mg/dL Estim Creat Clear Calc Not Reportable Estimated GFR > 60 (59 - ) Glucose 196 H (65-110) mg/dL Lactic Acid 1.6 (0.7-2.0) mmol/L Calcium 9.2 (8.4-10.2) mg/dL Magnesium 1.8 (1.6-2.3) mg/dL Total Bilirubin 0.7 (0.2-1.3) mg/dL AST 30 (14-36) U/L ALT 23 (6-35) U/L Alkaline Phosphatase 85 (38-126) U/L Total Creatine Kinase 45 (30-135) U/L Troponin I 0.143 H* 0.993 H* D (0.000-0.034) ng/mL NT-Pro-B Natriuret Pep 2190 H (19.9-100) pg/mL Total Protein 6.5 (6.3-8.2) g/dL Albumin 3.9 (3.5-5.1) g/dL Lipase 120 (23-300) U/L TSH (Reflex) 4.330 (0.465-4.68) uIU/mL Free T4 1.46 (0.78-2.19) ng/dL Total T3 1.01 (0.82-1.58) NG/ML Urine Color (Yellow) Urine Appearance (Clear) Urine pH (5.0-9.0) Ur Specific [place] (1.001-1.035) Urine Protein (Negative) mg/dL Urine Glucose (UA) (Negative) mg/dL Urine Ketones (Negative) mg/dL Ur Blood (Man) (Negative) Urine Nitrate (Negative) Urine Bilirubin (Negative) Urine Urobilinogen (<2.0) mg/dL Leukocyte Esterase Rfl (Negative) MAURICIO/UL Urine RBC (0-2) /hpf Urine WBC (0-3) /hpf Ur Squamous Epith Cells (Few) /hpf Urine Bacteria /hpf Urine Casts //25 Range/Units 06:36 WBC (4.5-10.0) K/mm3 RBC (4.2-5.4) M/mm3 Hgb (12.0-15.0) g/dL Hct (37.0-47.0) % MCV (80-100) fl MCH (26-34) pg MCHC (32-36) g/dl RDW (11.5-14.5) % Plt Count (150-375) k/mm3 MPV (7.4-10.4) fl Immature Gran % (Auto) (0-0.5) % Neut % (Auto) (45.5-73.1) % Lymph % (Auto) (18.3-44.2) % [place] % (Auto) (2.6-8.5) % Eos % (Auto) (0-4.4) % Baso % (Auto) (0.2-1.2) % Lymph # (Auto) (0.9-3.2) K/mm3 [place] # (Auto) (0.1-0.6) K/mm3 Eos # (Auto) (0-0.3) K/mm3 Baso # (Auto) (0.0-0.1) K/mm3 Abs Immat Gran (auto) (0.00-0.031) K/mm3 Absolute Neuts (auto) (1.3-6.7) K/mm3 Absolute Nucleated RBC (0.0-0.012) K/mm3 Nucleated RBC % (0.0-0.2) % PT (11.1-14.7) Seconds INR APTT (22.3-36.8) Seconds Sodium (137-145) mmol/L Potassium (3.4-5.0) mmol/L Chloride (98-107) mmol/L Carbon Dioxide (22-30) mmol/L Anion Gap (4-12) mmol/L BUN (7-17) mg/dL Creatinine (0.7-1.0) mg/dL Estim Creat Clear Calc Estimated GFR (59 - ) Glucose (65-110) mg/dL Lactic Acid (0.7-2.0) mmol/L Calcium (8.4-10.2) mg/dL Magnesium (1.6-2.3) mg/dL Total Bilirubin (0.2-1.3) mg/dL AST (14-36) U/L ALT (6-35) U/L Alkaline Phosphatase (38-126) U/L Total Creatine Kinase (30-135) U/L Troponin I (0.000-0.034) ng/mL NT-Pro-B Natriuret Pep (19.9-100) pg/mL Total Protein (6.3-8.2) g/dL Albumin (3.5-5.1) g/dL Lipase (23-300) U/L TSH (Reflex) (0.465-4.68) uIU/mL Free T4 (0.78-2.19) ng/dL Total T3 (0.82-1.58) NG/ML Urine Color Yellow (Yellow) Urine Appearance Turbid H (Clear) Urine pH 5.5 (5.0-9.0) Ur Specific [place] > 1.045 H (1.001-1.035) Urine Protein Negative (Negative) mg/dL Urine Glucose (UA) Negative (Negative) mg/dL Urine Ketones Negative (Negative) mg/dL Ur Blood (Man) Negative (Negative) Urine Nitrate Positive H (Negative) Urine Bilirubin Negative (Negative) Urine Urobilinogen 1.0 (<2.0) mg/dL Leukocyte Esterase Rfl Negative (Negative) MAURICIO/UL Urine RBC 0-2 (0-2) /hpf Urine WBC 0-5 (0-3) /hpf Ur Squamous Epith Cells Few (Few) /hpf Urine Bacteria 4+ H /hpf Urine Casts 0-2 <Misael Spivey MD - Last Filed: 01/12/25 18:10> Critical Care Time Critical Care Time Critical Care Time: Yes <Miasel Spivey MD - Last Filed: 01/12/25 18:10> Total Critical Care Time: 36 <Misael Spivey MD - Last Filed: 01/12/25 18:10> Discharge Plan Discharge Clinical Impression: Acute non-ST elevation myocardial infarction (NSTEMI), A-fib <Landon Velásquez DO - Last Filed: 01/12/25 07:27> Patient Disposition: Still a Patient <Landon Velásquez DO - Last Filed: 01/12/25 07:27> Condition: Serious <Landon Velásquez DO - Last Filed: 01/12/25 07:27>
--- NOTE | 2025-01-12 04:07 | ECG_ITS ---
Test Date: 2025-01-12 04:11:14 Measurements Intervals [place] Rate: 71 P: 0 NM: 0 QRS: 11 QRSD: 96 T: 54 QT: 382 QTc: 417 Interpretive Statements ATRIAL FIBRILLATION LOW QRS VOLTAGE IN PRECORDIAL LEADS CONSIDER ANTERIOR INFARCT, AGE INDETERMINATE BORDERLINE ST-T WAVE ABNORMALITY- HIGH LATERAL LEADS BASELINE ARTIFACT- I, II, III, AVR, AVL, AVF ABNORMAL ECG Compared to ECG 01/12/2025 03:12:33 NO SIGNIFICANT CHANGE Electronically Signed On 01-12-2025 06:30:11 CDT by Artur Childers D.O.
[2025-01-12] MEDS: NITROGLYCERIN SL 0.4 MG TABLET SUBLINGUAL (04:22)
[2025-01-12 04:23] LABS: Creatine Kinase 45 U/L (30-135); Magnesium 1.8 mg/dL (1.6-2.3)
[2025-01-12] MEDS: ONDANSETRON INJ 4 MG/2 ML VIAL IV PUSH (04:28)
[2025-01-12 04:33] LABS: NT Pro B Type Natriuretic Pept 2190 pg/mL (19.9-100)
[2025-01-12 05:08] LABS: Thyroid Stimulating Hormone Reflex 4.330 uIU/mL (0.465-4.68)
[2025-01-12 05:37] LABS: Free T4 Free Thyroxine Reflex 1.46 ng/dL (0.78-2.19)
--- NOTE | 2025-01-12 06:17 | ECG_ITS ---
Test Date: 2025-01-12 06:29:57 Measurements Intervals [place] Rate: 81 P: 0 DC: 0 QRS: -2 QRSD: 94 T: 69 QT: 390 QTc: 453 Interpretive Statements ATRIAL FIBRILLATION LOW QRS VOLTAGE IN PRECORDIAL LEADS CONSIDER ANTERIOR INFARCT, AGE INDETERMINATE BORDERLINE ST-T WAVE ABNORMALITY- HIGH LATERAL LEADS BASELINE ARTIFACT- I, II, AVR, AVL ABNORMAL ECG Compared to ECG 01/12/2025 04:11:14 No significant changes Electronically Signed On 01-12-2025 06:33:45 CDT by Artur Childers D.O.
[2025-01-12 06:30] LABS: Total Triiodothyronine (T3) 1.01 NG/ML (0.82-1.58)
[2025-01-12] MEDS: fentaNYL CITRATE INJ (*CRX) 100 MCG/2 ML VIAL 50 MCG IV PUSH (06:35)
[2025-01-12 06:47] LABS: Add Urine Microscopic? YES; Appearance Urine Turbid (Clear); Glucose Urine UA Negative (Negative); Leukocyte Esterase Ur Negative LEU/UL (Negative); Nitrate Urine Positive (Negative); Non Pathogenic Casts 0-2; Specific Grav Ur > 1.045 (1.001-1.035)
[2025-01-12 06:58] LABS: Troponin I 0.993 ng/mL (0.000-0.034)
[2025-01-12] MEDS: Please enter patient height and weight for medication dosing 1 EACH XX (08:36)
[2025-01-12] MEDS: HYDROmorphone HCL INJ (*CRX) 1 MG/ML SYR 0.5 MG IV PUSH (08:36)
[2025-01-12] MEDS: HEPARIN SOD/D5W 100 UNITS/ML 25,000 UNITS/250 ML BAG 10 UNITS IV CONT (08:40)
[2025-01-12] MEDS: METOPROLOL TARTRATE 25 MG TABLET PO (09:09)
[2025-01-12] MEDS: NITROGLYCERIN 0.2 MG/HR PATCH 1 PATCH TRANSDERM (09:10)
--- NOTE | 2025-01-12 09:45 | ECG_ITS ---
Test Date: 2025-01-12 09:47:47 Measurements Intervals [place] Rate: 86 P: 0 ID: 0 QRS: -2 QRSD: 90 T: 105 QT: 392 QTc: 471 Interpretive Statements ATRIAL FIBRILLATION WITH ABERRANT CONDUCTION OR VENTRICULAR PREMATURE COMPLEXES LOW QRS VOLTAGE IN PRECORDIAL LEADS CANNOT R/O SEPTAL INFARCT, AGE INDETERMINATE ABNORMAL ECG Compared to ECG 01/12/2025 06:29:57 NO SIGNIFICANT CHANGE Electronically Signed On 01-12-2025 10:21:32 CDT by Artur Childers D.O.
[2025-01-12 10:13] LABS: Troponin I 3.210 ng/mL (0.000-0.034)
[2025-01-12] MEDS: LACTATED RINGERS 1,000 ML 125 ML IV CONT (10:25)
[2025-01-12] MEDS: PERFLUTREN LIPID MICROSPHERES 1.5 ML VIAL DILUTED TO 10 ML TOTAL VOLUME IV PUSH (11:07)
--- NOTE | 2025-01-12 11:07 | IVDEFINITY ---
Prior to administration of IV Definity the patient was educated on the risks and benefits of the imaging enhancing agent including potential adverse side effects. The patient verbalized understanding. Allergies were verified. No exclusion criteria were identified and at least one of the following inclusion criteria were met: 1) physician request, 2) patient technically difficult to image (per the [place] [employer] guidelines of two or more segments not discernable within the apical view), or 3) questionable left ventricular function. ?
--- NOTE | 2025-01-12 11:11 | PC.NURSE ---
patient being admitted with heparin and fluids infusing per order.
--- NOTE | 2025-01-12 11:19 | ADMGEN ---
This patient, Bree Montoya, was admitted to IMU Room 214-01 at 1113. Patient/family oriented to hospital policies and general routines including ID bracelet, bed and alarms, visiting hours, pain management, procedures, bathroom and other care routines, personal items, smoking policy, room service/diet, and visiting hours. Information on how to activate the Rapid Response Team has been discussed. Patient/Family are encouraged to report perceived risks to care and to ask questions if they do not understand what they are told or what they should do.
--- NOTE | 2025-01-12 11:21 | PM.CNCAR ---
Assessment and Plan Assessment and plan (1) Acute non-ST elevation myocardial infarction (NSTEMI): Code(s): I21.4 - Non-ST elevation (NSTEMI) myocardial infarction Status: Acute (2) A-fib: Code(s): I48.91 - Unspecified atrial fibrillation Status: Acute (3) Type 2 diabetes mellitus without complications: Code(s): E11.9 - Type 2 diabetes mellitus without complications Status: Acute (4) Obstructive sleep apnea: Code(s): G47.33 - Obstructive sleep apnea (adult) (pediatric) Status: Acute (5) Morbid (severe) obesity due to excess calories: Code(s): E66.01 - Morbid (severe) obesity due to excess calories Status: Acute (6) Essential (primary) hypertension: Code(s): I10 - Essential (primary) hypertension Status: Acute Plan Assessment; 1. Acute coronary syndrome with classic chest pain at rest radiating to back and jaw and left arm recurring in the morning, associated with EKG changes and elevated cardiac enzymes. The trend does suggest acute coronary syndrome. EKG is not very classic for ST segment elevation however he does have suggestion for old anteroseptal myocardial infarction with ST coving. 2. History of morbid obesity with BMI of 46 and history of obstructive sleep apnea. 3. History of hypertension, hyperlipidemia and type 2 diabetes. Recommendations: #. Discussed with the media relations manager on-call and recommended urgent coronary angiography in view of her symptoms, elevated cardiac enzymes abnormal EKG. #. Started on metoprolol tartrate 25 mg b.i.d., Nitro-Dur patch, aspirin 3 in 25 mg given in the emergency room and IV heparin. #. Echocardiogram was ordered stat for wall motion abnormalities. #, home medications reviewed. Okay to continue with amlodipine 5 mg daily and losartan 50 mg daily. Further recommendations to follow after coronary angiography. Patient will likely need intervention. The case has been discussed with media relations manager Dr. Deleon, was going to take the patient to cardiac catheterization lab for emergency coronary angiography. Currently blood pressure is stable at 120 3/95 and heart rate is 83 per minute. History of Present Illness History of Present Illness Consult date/time: 01/12/25 11:21 Requesting physician: Misael Spivey MD Consult reason: chest pain Reason For Visit: NSTEMI/New Onset Afib Narrative: Patient is a 69-year-old female admitted via emergency room today with complaints of substernal chest pain. Patient has no previous history of cardiac problems or any history suggestive microinfarction, angina congestive heart failure. Patient developed substernal chest pain lasting for about 30 minutes 8:00 a.m. all in the evening and was associated rule with radiation to left arm and jaw. Surgical it subsided and patient had recurrence of chest pain in the morning came to the emergency room. Further workup in the emergency room with EKG will the QS pattern in anteroseptal leads with ST segment elevation not typical of all acute anteroseptal myocardial infarction. Patient may have subacute anteroseptal myocardial infarction. Cardiac enzymes were elevated and trend suggesting, intermediate coronary syndrome. Findings were discussed with the media relations manager on-call and patient now being prepared for cardiac catheterization. Patient was examined in the emergency room and still has the 3 to 5/10 severity substernal chest pain. Patient has been started on metoprolol, nitrates, aspirin and IV heparin. Admitting blood pressure was 150/97. Heart rate was 82 per minute. Patient was afebrile with O2 saturation of 99% on room air. Admitting laboratory data revealed WBC count 8.8. Hemoglobin is 13.7 and platelets are normal. PT PTT are normal. Sodium 136, potassium 3.5, BUN is 24, creatinine 0.75. Admitting troponin I was 0.143 which increased to 0.993 suggesting acute coronary syndrome. Pro BNP was 2190. EKG on admission revealed atrial fibrillation and heart rate of 80 per minute. There is ST coving noted in V1. There is QS pattern noted in V1 to V4 suggesting old anteroseptal myocardial infarction. There is ST elevation in V1 to V4 with atrial fibrillation. Patient is CT scan of the chest with CT angiogram which was negative for acute pulmonary embolism. Ordered by emergency room physicians. Patient also had a CT scan of the head which did not show any acute intracranial pathology. Review of Systems Review of Systems: Twelve point review of system was completed. Pertinent positive and negative findings per HPI. Constitutional negative for weight loss, weakness, fever or chills. Head and neck review of system is negative. Cardiovascular positive for substernal chest pain negative for shortness of breath. Negative for palpitation, dizziness or syncope. Pulmonary negative for cough, hemoptysis or dyspnea on exertion. Gastrointestinal negative for abdominal pain, nausea vomiting or diarrhea Neurovascular, skiing and down musculoskeletal is negative. [facility] Past Medical History Medical History DDD (degenerative disc disease), lumbar History of colon polyps Ankylosing spondylitis Hypertension Diabetes Surgical History Surgical History History of section 1983 History of cholecystectomy 1998 History of adenoidectomy History of tonsillectomy Family History Family History Sibling Family history of cardiovascular disease Family history of malignant neoplasm of breast Grandparent Cerebrovascular accident Family history of congestive heart failure Mother Family history of arthritis Family history of lung cancer Father Malignant neoplasm of prostate Social History Social History Smoking status: Never smoker Second hand tobacco smoke exposure: No Alcohol intake: never Substance use: never Substance use type: does not use Do You Feel Safe in your Home?: Yes Lack of Transportation: No Lack of Food: Never True Current Housing: I Have Housing Concerned About Future Housing: No Difficulty Paying Gas/Electric Bills: No Difficulty Paying for Meds: No Currently Unemployed: No Education: Associate Degree Difficulty w/ Childcare or Family Care: No Living arrangements: with family Occupation/Education: occupation Gender identity (if verbalized by the patient): Female Sexual Orientation (if Verbalized by the Patient): Straight or Heterosexual Spiritual care concerns: No Agree to blood products: Yes Meds Home Medications and Allergies Home Medications ?Medication ?Instructions ?Recorded ?Confirmed ?Type blood-glucose meter (OneTouch #1 ea 11/13/21 12/20/24 Rx Ultra2 Meter kit) blood sugar diagnostic (OneTouch #100 ea 09/27/23 12/20/24 Rx Ultra Test strips) propranolol 160 mg capsule,24 See Rx Instructions .Route 06/07/24 12/20/24 Rx hr,extended release .COMPLEX #90 caps amlodipine 5 mg tablet 5 mg PO DAILY #90 tabs 06/08/24 12/20/24 Rx duloxetine 60 mg capsule,delayed 60 mg PO BID #180 caps 06/08/24 12/20/24 Rx release losartan 100 1 tablet PO DAILY #90 tabs 06/08/24 12/20/24 Rx mg-hydrochlorothiazide 12.5 mg tablet celecoxib 200 mg capsule 200 mg PO DAILY #90 caps 06/18/24 12/20/24 Rx tirzepatide 15 mg/0.5 mL 15 mg (0.5 mL) subcut WEEKLY #2 mL 09/03/24 12/20/24 Rx subcutaneous pen injector (Saji) pioglitazone 30 mg tablet See Rx Instructions .Route 09/25/24 12/20/24 Rx .COMPLEX #90 tabs pen needle, diabetic 32 gauge x #100 ea 10/16/24 12/20/24 Rx 1/4 glipizide 5 mg tablet 5 mg PO QHS #90 tabs 11/23/24 12/20/24 Rx lancets 30 gauge (OneTouch #100 ea 11/29/24 12/20/24 Rx UltraSoft 2 Lancet) methocarbamol 500 mg tablet 500 mg PO QHS #20 tabs 12/20/24 12/20/24 Rx Allergies Allergy/AdvReac Type Severity Reaction Status Date / Time Sulfa (Sulfonamide Allergy Intermediate Rash Verified 01/12/25 04:23 Antibiotics) morphine Allergy Mild Rash Verified 01/12/25 04:23 cefadroxil Allergy Unknown Rash Verified 01/12/25 04:23 meloxicam Allergy Unknown Rash Verified 01/12/25 04:23 metformin AdvReac Severe Diarrhea Verified 01/12/25 04:23 lisinopril AdvReac Intermediate cough Verified 01/12/25 04:23 Vital Signs Vital Signs - 24 hr 01/12/25 03:12 01/12/25 03:12 01/12/25 05:14 Temperature 36.9 C Pulse Rate 82 78 Respiratory Rate 18 8 L Blood Pressure 150/97 H Pulse Oximetry 99 94 Oxygen Delivery Room Air Room Air 01/12/25 05:36 01/12/25 05:45 01/12/25 06:39 Temperature Pulse Rate 83 74 90 Respiratory Rate 17 18 18 Blood Pressure 130/83 Pulse Oximetry 97 97 96 Oxygen Delivery 01/12/25 07:31 01/12/25 08:01 01/12/25 08:02 Temperature Pulse Rate 79 76 88 Respiratory Rate 19 16 22 H Blood Pressure 120/73 129/93 H Pulse Oximetry 95 96 98 Oxygen Delivery 01/12/25 08:15 01/12/25 08:30 01/12/25 08:31 Temperature Pulse Rate 83 75 Respiratory Rate 14 16 18 Blood Pressure 144/114 H Pulse Oximetry 95 94 Oxygen Delivery 01/12/25 09:06 01/12/25 09:09 01/12/25 09:09 Temperature Pulse Rate 77 79 72 Respiratory Rate 12 19 Blood Pressure 110/81 Pulse Oximetry 93 95 Oxygen Delivery 01/12/25 09:15 01/12/25 09:31 01/12/25 10:01 Temperature Pulse Rate 82 78 83 Respiratory Rate 18 22 H 16 Blood Pressure 119/72 123/95 H Pulse Oximetry 96 96 98 Oxygen Delivery Exam Narrative: Patient was examined in the emergency room. Patient is awake alert and appears to be comfortable without shortness of breath this time Patient has mild chest pain. No orthopnea. Oriented x3. Patient is morbidly obese and weighs 128.9 kg with BMI of 46. Head and neck examination is unremarkable. Head is atraumatic. Sclerae is nonicteric. ENT examination is negative. Neck is supple. There is no JVD or carotid bruit. Thyroid enlarged. Lungs are clear auscultation percussion. There is decreased air entry bilaterally. Heart sounds reveal normal S1-S2. No significant murmurs S3-S4 appreciated. Abdomen is soft and nontender. There is no hepatosplenomegaly. Bowel sounds are present. Extremities revealed no pedal edema. Distal pulses are fair bilaterally. Neurological examination is intact. Skin is intact without any rash or bruises. Results Labs and Meds 01/12/25 03:31 01/12/25 03:31 Lab results: Cardiac Enzymes 01/12/25 01/12/25 01/12/25 Range/Units 03:31 06:27 09:40 AST 30 (14-36) U/L Troponin I 0.143 H* 0.993 H* D 3.210 H* D (0.000-0.034) ng/mL Coagulation 01/12/25 Range/Units 03:31 PT 14.4 (11.1-14.7) Seconds APTT 21.9 L (22.3-36.8) Seconds CBC 01/12/25 Range/Units 03:31 WBC 8.8 (4.5-10.0) K/mm3 RBC 4.69 (4.2-5.4) M/mm3 Hgb 13.7 (12.0-15.0) g/dL Hct 41.5 (37.0-47.0) % Plt Count 244 (150-375) k/mm3 Lymph # (Auto) 3.03 (0.9-3.2) K/mm3 [place] # (Auto) 0.6 (0.1-0.6) K/mm3 Eos # (Auto) 0.3 (0-0.3) K/mm3 Baso # (Auto) 0.1 (0.0-0.1) K/mm3 Comprehensive Metabolic Panel 01/12/25 Range/Units 03:31 Sodium 136 L (137-145) mmol/L Potassium 3.5 (3.4-5.0) mmol/L Chloride 102 (98-107) mmol/L Carbon Dioxide 26 (22-30) mmol/L BUN 24 H D (7-17) mg/dL Creatinine 0.75 (0.7-1.0) mg/dL Glucose 196 H (65-110) mg/dL Calcium 9.2 (8.4-10.2) mg/dL AST 30 (14-36) U/L ALT 23 (6-35) U/L Alkaline Phosphatase 85 (38-126) U/L Total Protein 6.5 (6.3-8.2) g/dL Albumin 3.9 (3.5-5.1) g/dL Patient Weight 01/12/25 23:59 Weight 128.9 kg
--- NOTE | 2025-01-12 11:33 | PM.IMHP ---
H&P: HPI History of Present Illness Date/Time: 01/12/25 11:33 Chief Complaint: Chest Pain Narrative: Patient is a 69-year-old female presents to the emergency department accompanied by her significant other complaining of chest pain. According to the patient and family chest pain started around 8:00 p.m. last night, middle her chest, squeezing, lasted about 30 minutes, patient had tingling and numbness in the neck and face area during the chest pain. Her pain returned again around 2:00 a.m and woke her from sleep. Patient denies any SOB associated with chest pain. No fever, no nausea or vomiting. Patient is taking blood pressure medications. Patient denies any vomiting. Patient has associated nausea. Patient denies any history of blood clots. Patient denies unilateral extremity swelling. Patient has abdominal pain, melena, hematochezia, urinary discomfort, focal weakness. Denies difficulty breathing. ER work up showed that patient had Non ST elevation DE. Patient was started on IV heparin and transferred to floor. At present patient is pain free and lying comfortably in bed. Cardiology consulted. Review of Systems Review of Systems: All systems reviewed & are unremarkable except as noted in HPI and below (the history and physical examination.) [facility] Past Medical History Medical History DDD (degenerative disc disease), lumbar History of colon polyps Ankylosing spondylitis Hypertension Diabetes Surgical History Surgical History History of section 1983 History of cholecystectomy 1998 History of adenoidectomy History of tonsillectomy Family History Family History Sibling Family history of cardiovascular disease Family history of malignant neoplasm of breast Grandparent Cerebrovascular accident Family history of congestive heart failure Mother Family history of arthritis Family history of lung cancer Father Malignant neoplasm of prostate Social History Social History Smoking status: Never smoker Second hand tobacco smoke exposure: No Alcohol intake: never Substance use: never Substance use type: does not use Do You Feel Safe in your Home?: Yes Lack of Transportation: No Lack of Food: Never True Current Housing: I Have Housing Concerned About Future Housing: No Difficulty Paying Gas/Electric Bills: No Difficulty Paying for Meds: No Currently Unemployed: No Education: Associate Degree Difficulty w/ Childcare or Family Care: No Living arrangements: with family Occupation/Education: occupation Gender identity (if verbalized by the patient): Female Sexual Orientation (if Verbalized by the Patient): Straight or Heterosexual Spiritual care concerns: No Agree to blood products: Yes Meds Home Medications and Allergies Home Medications ?Medication ?Instructions ?Recorded ?Confirmed ?Type blood-glucose meter (OneTouch #1 ea 11/13/21 12/20/24 Rx Ultra2 Meter kit) blood sugar diagnostic (OneTouch #100 ea 09/27/23 12/20/24 Rx Ultra Test strips) propranolol 160 mg capsule,24 See Rx Instructions .Route 06/07/24 12/20/24 Rx hr,extended release .COMPLEX #90 caps amlodipine 5 mg tablet 5 mg PO DAILY #90 tabs 06/08/24 12/20/24 Rx duloxetine 60 mg capsule,delayed 60 mg PO BID #180 caps 06/08/24 12/20/24 Rx release losartan 100 1 tablet PO DAILY #90 tabs 06/08/24 12/20/24 Rx mg-hydrochlorothiazide 12.5 mg tablet celecoxib 200 mg capsule 200 mg PO DAILY #90 caps 06/18/24 12/20/24 Rx tirzepatide 15 mg/0.5 mL 15 mg (0.5 mL) subcut WEEKLY #2 mL 09/03/24 12/20/24 Rx subcutaneous pen injector (Vidalunjoannro) pioglitazone 30 mg tablet See Rx Instructions .Route 09/25/24 12/20/24 Rx .COMPLEX #90 tabs pen needle, diabetic 32 gauge x #100 ea 10/16/24 12/20/24 Rx 1/4 glipizide 5 mg tablet 5 mg PO QHS #90 tabs 11/23/24 12/20/24 Rx lancets 30 gauge (OneTouch #100 ea 11/29/24 12/20/24 Rx UltraSoft 2 Lancet) methocarbamol 500 mg tablet 500 mg PO QHS #20 tabs 12/20/24 12/20/24 Rx Allergies Allergy/AdvReac Type Severity Reaction Status Date / Time Sulfa (Sulfonamide Allergy Intermediate Rash Verified 01/12/25 04:23 Antibiotics) morphine Allergy Mild Rash Verified 01/12/25 04:23 cefadroxil Allergy Unknown Rash Verified 01/12/25 04:23 meloxicam Allergy Unknown Rash Verified 01/12/25 04:23 metformin AdvReac Severe Diarrhea Verified 01/12/25 04:23 lisinopril AdvReac Intermediate cough Verified 01/12/25 04:23 Vital Signs Vital Signs - 24 hr 01/12/25 03:12 01/12/25 03:12 01/12/25 05:14 Temperature 36.9 C Pulse Rate 82 78 Respiratory Rate 18 8 L Blood Pressure 150/97 H Pulse Oximetry 99 94 Oxygen Delivery Room Air Room Air 01/12/25 05:36 01/12/25 05:45 01/12/25 06:39 Temperature Pulse Rate 83 74 90 Respiratory Rate 17 18 18 Blood Pressure 130/83 Pulse Oximetry 97 97 96 Oxygen Delivery 01/12/25 07:31 01/12/25 08:01 01/12/25 08:02 Temperature Pulse Rate 79 76 88 Respiratory Rate 19 16 22 H Blood Pressure 120/73 129/93 H Pulse Oximetry 95 96 98 Oxygen Delivery 01/12/25 08:15 01/12/25 08:30 01/12/25 08:31 Temperature Pulse Rate 83 75 Respiratory Rate 14 16 18 Blood Pressure 144/114 H Pulse Oximetry 95 94 Oxygen Delivery 01/12/25 09:06 01/12/25 09:09 01/12/25 09:09 Temperature Pulse Rate 77 79 72 Respiratory Rate 12 19 Blood Pressure 110/81 Pulse Oximetry 93 95 Oxygen Delivery 01/12/25 09:15 01/12/25 09:31 01/12/25 10:01 Temperature Pulse Rate 82 78 83 Respiratory Rate 18 22 H 16 Blood Pressure 119/72 123/95 H Pulse Oximetry 96 96 98 Oxygen Delivery Exam Narrative: CONST: No acute distress. Well nourished. HENMT: Head is normocephalic and atraumatic. Moist mucous membranes. No posterior oropharynx erythema. EYES: No scleral icterus. No conjunctival injection or pallor. PERRL. NECK: No meningeal signs. RESP: Able to speak in full sentences. Normal respiratory effort. CTAB. CARDIO: irregular rate. Irregularly irregular rhythm. 2+ DP and radial pulses bilaterally. GI: Nondistended. No tenderness to palpation. Soft. : No CVA tenderness to palpation. SKIN: No rashes or lesions noted on exposed skin. NEURO: Oriented x3. Moves all extremities. EXTREM/MSK/BACK: No pedal edema. PSYCH: Normal affect. H&P: Results Labs Labs: Short CBC 01/12/25 Range/Units 03:31 WBC 8.8 (4.5-10.0) K/mm3 Hgb 13.7 (12.0-15.0) g/dL Hct 41.5 (37.0-47.0) % Plt Count 244 (150-375) k/mm3 BMP 01/12/25 03:31 Sodium 136 L Potassium 3.5 Chloride 102 Carbon Dioxide 26 BUN 24 H D Creatinine 0.75 Glucose 196 H Calcium 9.2 Cardiac Enzymes 01/12/25 01/12/25 01/12/25 Range/Units 03:31 06:27 09:40 Total Creatine Kinase 45 (30-135) U/L Troponin I 0.143 H* 0.993 H* D 3.210 H* D (0.000-0.034) ng/mL Liver Function 01/12/25 Range/Units 03:31 Total Bilirubin 0.7 (0.2-1.3) mg/dL AST 30 (14-36) U/L ALT 23 (6-35) U/L Alkaline Phosphatase 85 (38-126) U/L Albumin 3.9 (3.5-5.1) g/dL Urine 01/12/25 Range/Units 06:36 Urine Color Yellow (Yellow) Urine Appearance Turbid H (Clear) Urine pH 5.5 (5.0-9.0) Ur Specific [place] > 1.045 H (1.001-1.035) Urine Protein Negative (Negative) mg/dL Urine Glucose (UA) Negative (Negative) mg/dL Assessment and Plan Assessment and plan (1) Acute non-ST elevation myocardial infarction (NSTEMI): Code(s): I21.4 - Non-ST elevation (NSTEMI) myocardial infarction Status: Acute Assessment and Plan: Cardiology consult, Continue with IV heparin (2) A-fib: Code(s): I48.91 - Unspecified atrial fibrillation Status: Acute Assessment and Plan: Rate is controlled, will continue with IV heaprin (3) Essential (primary) hypertension: Code(s): I10 - Essential (primary) hypertension Status: Acute Assessment and Plan: Stable on current medications, will continue current treatment. (4) Type 2 diabetes mellitus without complications: Code(s): E11.9 - Type 2 diabetes mellitus without complications Status: Acute Assessment and Plan: Stable on current medications, will continue current treatment. Plan Admit patient to IMU as a full admission Cardiology consult Full code DVT prophylaxis pharmacological. Quality VTE Prophylaxis VTE prophylaxis: pharmacologic ordered
--- NOTE | 2025-01-12 13:19 | WPDCARDPROC ---
Cardiac Cath Procedure Note Date of procedure:: 01/12/25 Performing physician:: CATHETERIZATION LABORATORY REPORT Procedure Date: 01/12/2025 Referring Physician: Dr. De Leon Anesthesia: Versed and Fentanyl were ordered and given in my presence at 1212, procedure ended at 1310. Supervision of nurse, Zach Corral monitored moderate sedation with 2mg Versed, 50mg Benadryl, and 50mcg Fentanyl was provided for 58 minutes. Pre-op Diagnosis: NSTEMI Post-op Diagnosis: NSTEMI Procedure(s): Left heart catheterization with coronary angiography Access Site: Right radial artery Brief History and Clinical Indications: 69-year-old woman with diabetes, hypertension, and strong family history of cardiovascular disease presented with persistent chest discomfort starting last evening admitted for NSTEMI for which cardiac catheterization with possible PCI had been recommended. All risks, benefits and alternatives to left heart catheterization with or without percutaneous coronary intervention was discussed at length with the patient. Risk of complications including but not limited to bleeding, infection, arrhythmia, stroke, worsening kidney function, blood loss, groin hematoma, limb loss, emergency coronary artery bypass grafting, and even were discussed with the patient and all questions were answered. The patient understood and wished to proceed. Time out called, patient name, date of , medical record number, allergies, procedure performed, identify Building Construction Supervisor, patient and staff member concurred with accurate data, procedure carried on. Findings: LEFT HEART CATHETERIZATION FINDINGS: 1. Left main: The left main coronary artery is widely patent without any significant obstructive disease. 2. Left anterior descending: The LAD is occluded in its midbody at the takeoff of the 1st diagonal branch. The diagonal branch is a moderate caliber size vessel with a fair amount of myocardial distribution in the anterolateral wall with luminal irregularities. 3. Left circumflex: The left circumflex artery and the main marginal branches have mild luminal irregularities without any significant obstructive angiographic disease. 4. Right coronary artery: The RCA is a large dominant vessel with diffuse 20-30% stenosis. 5. Left ventricle: A. End-diastolic pressure 29 mmHg. B. LV gram deferred. C. No significant gradient across aortic valve on catheter pullback. 6. Opening AO pressure 100/86 and closing AO pressure 85/55 Description of Procedure: Informed consent signed and placed in the chart. Patient transferred to bobcat driver/labor room. Prepped and draped in usual sterile fashion. 2% lidocaine injected subcutaneously in right wrist area. 22-gauge venipuncture catheter used to access the right radial artery with the Seldinger technique. 6-FR slender sheath placed in right radial artery. Nitroglycerin 200mcg, Verapamil 2.5mg, and Heparin 5000U was given intraarterial through the sheath. J wire advanced under fluoroscopy. 5F TIG diagnostic catheter was used to cross the aortic valve for LVEDP and aortic valve gradients. The catheter was then used to engage the right coronary artery. It was unable to engage the left main coronary artery and nonselective image showed possible LAD culprit and thus, an EBU 3.5 guide catheter was used to engage the LMCA. Multiple orthogonal angiogram obtained and reviewed. Procedure Description for PCI: Heparin was used for anticoagulation (ACT maintained above 250) Patient loaded with heparin at 70 units/kg. 0.014 runthrough coronary wire was passed in to the left circumflex and left in the OM branch to allow for the EBU guide catheter to be pulled back slightly due to a short left main. A second 0.014 runthrough coronary wire was then passed into the LAD and eventually was able to access the distal LAD. The lesion was pre-dilated with a 2.5 x 15mm balloon inflated to nominal pressures with muslim of MIRYAM 3 flow. IC cardene 200mcg and IC nitroglycerin 200mcg was delivered followed by repeat angiogram. A 2.75 x 18mm [place] Placer was deployed in the mid LAD; post dilated with a 3.0 x 12mm NC proximally to high abimbola. IVUS showed mild stent malapposition and underexpansion. a 3.25 x 12mm was used to further post-dilate the entire stent to high abimbola with good angiographic results. All intracoronary equipment was removed under fluoroscopy and final angiography revealed good results. Pre-procedure - MIRYAM 0 flow Post-procedure - MIRYAM 3 flow No angiographic complications identified. Assessment: Successful IVUS guided PCI to the mid LAD with a 2.75 x 18mm [place] Placer; post dilated with 3.25 x 12mm NC to high abimbola with good results. Post Operative Condition: Stable No significant blood loss Disposition: Floor Plan: DAPT for 1 year followed by ASA indefinitely. The above findings were discussed with the referring physician. Continue aggressive medical therapy and risk factor modification. Peter Deleon Interventional Cardiology
[2025-01-12] MEDS: SODIUM CHLORIDE 0.9% IV 1,000 ML 200 ML IV CONT ×2 (13:50→18:45)
[2025-01-12] MEDS: ATORVASTATIN 40 MG TABLET 80 MG PO (20:43)
[2025-01-13] VITALS (16 sets, daily range): BP systolic 99–119; BP diastolic 51–69; PULSE 60–103; RESP 14–18; TEMP 36.7–36.9; O2SAT 93–98
[2025-01-13 04:15] LABS: Hematocrit 39.2 % (37.0-47.0); Hemoglobin 12.9 g/dL (12.0-15.0); Immature Granulocyte Percent A 0.5 % (0-0.5); Lymphocytes Absolute Auto 2.12 K/mm3 (0.9-3.2); Mean Corpuscular HGB Conc 32.9 g/dl (32-36); Mean Corpuscular Hemoglobin 29.4 pg (26-34); Mean Corpuscular Volume 89.3 fl (80-100); Nucleated Red Blood Cells Absolute Auto 0.000 K/mm3 (0.0-0.012); Nucleated Red Blood Cells Perc 0.0 % (0.0-0.2); Platelet Count Result 226 k/mm3 (150-375); Red Blood Count 4.39 M/mm3 (4.2-5.4); White Blood Count 8.1 K/mm3 (4.5-10.0)
[2025-01-13] MEDS: ASPIRIN 81 MG ENTERIC TABLET PO (10:18)
[2025-01-13] MEDS: METOPROLOL TARTRATE 25 MG TABLET PO (10:18)
[2025-01-13] MEDS: CLOPIDOGREL BISULFATE 75 MG TABLET PO (10:18)
--- NOTE | 2025-01-13 10:29 | PM.PNCARD ---
Progress Note: A&P Assessment and Plan (1) Acute non-ST elevation myocardial infarction (NSTEMI): Onset Date: 01/2025 Code(s): I21.4 - Non-ST elevation (NSTEMI) myocardial infarction Status: Acute (2) A-fib: Code(s): I48.91 - Unspecified atrial fibrillation Status: Acute (3) Type 2 diabetes mellitus without complications: Code(s): E11.9 - Type 2 diabetes mellitus without complications Status: Acute (4) Obstructive sleep apnea: Code(s): G47.33 - Obstructive sleep apnea (adult) (pediatric) Status: Acute (5) Morbid (severe) obesity due to excess calories: Code(s): E66.01 - Morbid (severe) obesity due to excess calories Status: Acute (6) Essential (primary) hypertension: Code(s): I10 - Essential (primary) hypertension Status: Acute (7) Ischemic cardiomyopathy: Code(s): I25.5 - Ischemic cardiomyopathy Status: Acute Assessment and Plan: EF 40-45%. Plan Assessment; 1. Acute coronary syndrome with classic chest pain at rest radiating to back and jaw and left arm recurring in the morning, associated with EKG changes and elevated cardiac enzymes. The trend does suggest acute coronary syndrome. EKG is not very classic for ST segment elevation however he does have suggestion for old anteroseptal myocardial infarction with ST coving. 2. History of morbid obesity with BMI of 46 and history of obstructive sleep apnea. 3. History of hypertension, hyperlipidemia and type 2 diabetes. 4. Ischemic cardiomyopathy 5. Atrial fibrillation Recommendations: Because of her ischemic cardiomyopathy: Will transition her from short-acting metoprolol to metoprolol succinate 50 mg p.o. daily. First dose now. Will also add losartan 25 mg daily because of her cardiomyopathy and diabetes and hypertension. Regarding her atrial fibrillation: She needs anticoagulant therapy. Will start her on Eliquis 5 mg p.o. b.i.d.. She should be on triple therapy x1 month and then stop on anti-platelet agents at that point. Will likely attempt cardioversion as an outpatient in 4-6 weeks. She understands by high bleeding risk given triple therapy. Rate is currently uncontrolled with heart rates in the 100s. Continue metoprolol and up titrate as need be. Continue atorvastatin for hyperlipidemia coronary disease Hospitalist to manage diabetes Subjective Date/time seen: 01/13/25 10:29 Interval history: 69-year-old admitted for chest pain, atrial fibrillation. Date of service 01/13/2025: Went to the cardiac catheterization lab yesterday was found have an occluded mid LAD status post PCI as detailed below. She is feeling better today. No chest pain. No shortness of breath. Still in AFib. Review of Systems Review of Systems: All systems reviewed & are unremarkable except as noted in HPI and below Constitutional: Constitutional: Denies body ache(s) Eyes: Eyes: Denies blurry vision ENT: Reports Normal hearing present Cardiovascular: Cardiovascular: Denies chest pain Respiratory: Respiratory: Denies dyspnea Gastrointestinal: Gastrointestinal: Denies abdominal pain Genitourinary: Genitourinary: Denies hematuria Musculoskeletal: Musculoskeletal: Denies myalgias Integumentary/Breasts: Skin/Breast: Denies pruritus Neurologic: Denies Abnormal speech present Psychiatric: Psychiatric: Denies behavioral changes Endocrine: Endocrine: Denies change in body appearance Hematologic/Lymphatic: Hematologic/Lymphatic: Denies easy bleeding Allergic/Immunologic: Allergic/Immunologic: Denies GI upset with certain foods Exam Narrative: Awake alert oriented appears to be in no acute distress. Appears stated age Const: General: comfortable and no acute distress HENMT: Ears: TM's normal bilaterally Face/Nose/Sinus: Normal nares present Eyes: General: appearance normal, both eyes and all related structures Sclera: sclerae normal Neck: Neck: supple and no JVD Resp: Effort & Inspection: normal respiratory effort Auscultation: clear to auscultation bilaterally Cardio: Rate: regular rate Rhythm: abnormal rhythm irregularly irregular GI: Inspection: non-distended GI Palp: Yes Soft to palpation Skin: General skin exam: normal color and no rashes or lesions noted Other: Right wrist still and brace following catheterization Neuro: General: No gait normal Speech: normal speech Extrem: General: normal to inspection Psych: Mental Status: mental status grossly normal Affect: normal affect Objective Data Vital Signs Vital Signs: Vital Signs - 24 hr 01/12/25 11:29 01/12/25 12:00 01/12/25 13:35 Temperature 36.4 C Pulse Rate 68 73 Pulse Rate [Monitor] Respiratory Rate 16 14 Blood Pressure 122/90 113/75 Pulse Oximetry 99 93 Oxygen Delivery Room Air Room Air 01/12/25 13:35 01/12/25 13:45 01/12/25 13:45 Temperature Pulse Rate 66 Pulse Rate [Monitor] 73 73 Respiratory Rate 12 Blood Pressure 113/79 Pulse Oximetry 93 Oxygen Delivery Room Air 01/12/25 14:00 01/12/25 14:00 01/12/25 14:15 Temperature Pulse Rate 74 Pulse Rate [Monitor] 74 66 Respiratory Rate 14 Blood Pressure 116/64 Pulse Oximetry 94 Oxygen Delivery Room Air 01/12/25 14:15 01/12/25 14:30 01/12/25 14:30 Temperature Pulse Rate 66 70 Pulse Rate [Monitor] 70 Respiratory Rate 14 13 Blood Pressure 97/71 L 99/78 L Pulse Oximetry 94 93 Oxygen Delivery Room Air Room Air 01/12/25 14:45 01/12/25 14:45 01/12/25 15:00 Temperature Pulse Rate 69 Pulse Rate [Monitor] 69 68 Respiratory Rate 12 Blood Pressure 100/70 Pulse Oximetry 93 Oxygen Delivery Room Air 01/12/25 15:00 01/12/25 15:15 01/12/25 15:15 Temperature Pulse Rate 68 74 Pulse Rate [Monitor] 74 Respiratory Rate 12 14 Blood Pressure 112/70 117/82 Pulse Oximetry 94 95 Oxygen Delivery Room Air Room Air 01/12/25 15:30 01/12/25 15:30 01/12/25 15:45 Temperature Pulse Rate 74 Pulse Rate [Monitor] 74 75 Respiratory Rate 18 Blood Pressure 106/68 Pulse Oximetry 95 Oxygen Delivery Room Air 01/12/25 15:45 01/12/25 16:00 01/12/25 16:00 Temperature Pulse Rate 75 73 Pulse Rate [Monitor] 73 Respiratory Rate 13 15 Blood Pressure 111/91 H 108/79 Pulse Oximetry 95 93 Oxygen Delivery Room Air Room Air 01/12/25 16:00 01/12/25 16:15 01/12/25 16:15 Temperature Pulse Rate 80 Pulse Rate [Monitor] 80 Respiratory Rate 13 Blood Pressure 98/70 L Pulse Oximetry 93 Oxygen Delivery Room Air Room Air 01/12/25 16:30 01/12/25 16:30 01/12/25 16:45 Temperature Pulse Rate 77 Pulse Rate [Monitor] 77 83 Respiratory Rate 13 Blood Pressure 104/79 Pulse Oximetry 95 Oxygen Delivery Room Air 01/12/25 16:45 01/12/25 17:00 01/12/25 17:00 Temperature Pulse Rate 83 80 Pulse Rate [Monitor] 80 Respiratory Rate 15 14 Blood Pressure 106/69 100/58 L Pulse Oximetry 95 95 Oxygen Delivery Room Air Room Air 01/12/25 17:17 01/12/25 17:17 01/12/25 17:44 Temperature 36.4 C Pulse Rate 86 66 Pulse Rate [Monitor] 86 Respiratory Rate 15 Blood Pressure 93/40 L 87/49 L Pulse Oximetry 96 96 Oxygen Delivery Room Air 01/12/25 18:00 01/12/25 18:02 01/12/25 18:45 Temperature Pulse Rate 69 71 Pulse Rate [Monitor] 67 Respiratory Rate Blood Pressure 92/33 L Pulse Oximetry 92 Oxygen Delivery 01/12/25 20:00 01/12/25 20:00 01/12/25 20:12 Temperature Pulse Rate 88 Pulse Rate [Monitor] Respiratory Rate Blood Pressure Pulse Oximetry 96 Oxygen Delivery Room Air Room Air 01/12/25 20:36 01/12/25 22:00 01/13/25 00:00 Temperature 36.7 C 36.7 C Pulse Rate 81 72 76 Pulse Rate [Monitor] Respiratory Rate 20 16 Blood Pressure 116/69 110/69 Pulse Oximetry 96 95 Oxygen Delivery 01/13/25 00:00 01/13/25 00:00 01/13/25 02:00 Temperature Pulse Rate 87 87 Pulse Rate [Monitor] Respiratory Rate Blood Pressure Pulse Oximetry Oxygen Delivery Room Air 01/13/25 04:00 01/13/25 04:00 01/13/25 05:07 Temperature 36.8 C Pulse Rate 85 65 Pulse Rate [Monitor] Respiratory Rate 14 Blood Pressure 119/59 L Pulse Oximetry 93 Oxygen Delivery Room Air 01/13/25 06:00 01/13/25 08:00 01/13/25 08:00 Temperature 36.8 C Pulse Rate 81 97 Pulse Rate [Monitor] Respiratory Rate 18 Blood Pressure 111/57 L Pulse Oximetry 95 Oxygen Delivery Room Air 01/13/25 10:18 Temperature Pulse Rate 103 H Pulse Rate [Monitor] Respiratory Rate Blood Pressure Pulse Oximetry Oxygen Delivery Intake/Output Intake/Output: Intake & Output 01/10/25 01/11/25 01/12/25 01/13/25 23:59 23:59 23:59 23:59 Intake Total 665 790 Balance 665 790 Meds/Results Medications: Active Medications Generic Name Dose Route Start Last Admin Trade Name Freq PRN Reason Stop Dose Admin Aspirin 81 mg 01/13/25 09:00 01/13/25 10:18 Aspirin 81 Mg Enteric Tablet PO 81 mg QAM REPLACED BY [facility] Administration Atorvastatin Calcium 80 mg 01/12/25 21:00 01/12/25 20:43 Atorvastatin 40 Mg Tablet PO 80 mg QHS SABAS Administration Clopidogrel Bisulfate 75 mg 01/13/25 09:00 01/13/25 10:18 Clopidogrel Bisulfate 75 Mg Tablet PO 75 mg QAM REPLACED BY [facility] Administration Metoprolol Tartrate 25 mg 01/12/25 09:00 01/13/25 10:18 Metoprolol Tartrate 25 Mg Tablet PO 25 mg BID SABAS Administration Perflutren Lipid Microsphere 0 ml 01/12/25 22:00 Perflutren Lipid Microspheres 1.5 Ml Vial Diluted To 10 Ml Total Volume IV PUSH 01/15/25 22:00 ONCE PRN adequate visualization Protocol Radiology Results: ITS Impressions Chest X-Ray 01/12/25 06:46 IMPRESSION: 1. No acute cardiopulmonary findings. Head CT 01/12/25 07:44 IMPRESSION: 1. No acute intracranial findings. Chest CTA 01/12/25 07:47 IMPRESSION: 1. No PE or other acute cardiopulmonary findings. Labs Labs: Laboratory Results - last 24 hr 01/12/25 01/13/25 13:08 03:43 WBC 8.1 RBC 4.39 Hgb 12.9 Hct 39.2 MCV 89.3 MCH 29.4 MCHC 32.9 RDW 13.3 Plt Count 226 MPV 9.3 Immature Gran % (Auto) 0.5 Neut % (Auto) 63.6 Lymph % (Auto) 26.3 [place] % (Auto) 6.3 Eos % (Auto) 2.6 Baso % (Auto) 0.7 Lymph # (Auto) 2.12 [place] # (Auto) 0.5 Eos # (Auto) 0.2 Baso # (Auto) 0.1 Abs Immat Gran (auto) 0.04 H Absolute Neuts (auto) 5.1 Absolute Nucleated RBC 0.000 Nucleated RBC % 0.0 Activ Coag Time [place] 233 H Cardiac catheterization LEFT HEART CATHETERIZATION FINDINGS: 1. Left main: The left main coronary artery is widely patent without any significant obstructive disease. 2. Left anterior descending: The LAD is occluded in its midbody at the takeoff of the 1st diagonal branch. The diagonal branch is a moderate caliber size vessel with a fair amount of myocardial distribution in the anterolateral wall with luminal irregularities. 3. Left circumflex: The left circumflex artery and the main marginal branches have mild luminal irregularities without any significant obstructive angiographic disease. 4. Right coronary artery: The RCA is a large dominant vessel with diffuse 20-30% stenosis. 5. Left ventricle: A. End-diastolic pressure 29 mmHg. B. LV gram deferred. C. No significant gradient across aortic valve on catheter pullback. 6. Opening AO pressure 100/86 and closing AO pressure 85/55 Description of Procedure: Informed consent signed and placed in the chart. Patient transferred to can labeler room. Prepped and draped in usual sterile fashion. 2% lidocaine injected subcutaneously in right wrist area. 22-gauge venipuncture catheter used to access the right radial artery with the Seldinger technique. 6-FR slender sheath placed in right radial artery. Nitroglycerin 200mcg, Verapamil 2.5mg, and Heparin 5000U was given intraarterial through the sheath. J wire advanced under fluoroscopy. 5F TIG diagnostic catheter was used to cross the aortic valve for LVEDP and aortic valve gradients. The catheter was then used to engage the right coronary artery. It was unable to engage the left main coronary artery and nonselective image showed possible LAD culprit and thus, an EBU 3.5 guide catheter was used to engage the LMCA. Multiple orthogonal angiogram obtained and reviewed. Procedure Description for PCI: Heparin was used for anticoagulation (ACT maintained above 250) Patient loaded with heparin at 70 units/kg. 0.014 runthrough coronary wire was passed in to the left circumflex and left in the OM branch to allow for the EBU guide catheter to be pulled back slightly due to a short left main. A second 0.014 runthrough coronary wire was then passed into the LAD and eventually was able to access the distal LAD. The lesion was pre-dilated with a 2.5 x 15mm balloon inflated to nominal pressures with mormonism of MIRYAM 3 flow. IC cardene 200mcg and IC nitroglycerin 200mcg was delivered followed by repeat angiogram. A 2.75 x 18mm [place] was deployed in the mid LAD; post dilated with a 3.0 x 12mm NC proximally to high abimbola. IVUS showed mild stent malapposition and underexpansion. a 3.25 x 12mm was used to further post-dilate the entire stent to high abimbola with good angiographic results. All intracoronary equipment was removed under fluoroscopy and final angiography revealed good results. Pre-procedure - MIRYAM 0 flow Post-procedure - MIRYAM 3 flow No angiographic complications identified. Assessment: Successful IVUS guided PCI to the mid LAD with a 2.75 x 18mm [place]; post dilated with 3.25 x 12mm NC to high abimbola with good results. Echo 1. Definity contrast administered improved wall motion interpretation. 2. Left ventricular chamber dimension is mildly enlarged. 3. Basal to apical thin anteroseptum, and septum and apex are severely hypokinetic. 4. Left ventricular systolic function is moderately reduced, estimated at 40-45. 5. The left ventricular diastolic function is abnormal. 6. E/e' 19 is elevated. 7. Left atrial chamber dimension is mildly enlarged. 8. The mitral valve has a moderately calcified annulus. 9. There is mild mitral valve regurgitation. 10. There is mild tricuspid valve regurgitation. 11. Mild pulmonary hypertension, estimated pulmonary arterial systolic pressure is 41 mmHg. 12. Dilated inferior vena cava with >50% collapse upon inspiration consistent with elevated right atrial pressure, 10 mmHg.
[2025-01-13 12:51] LABS: Cholesterol 168 mg/dL (0-200); HDL Direct 45 mg/dL; Triglycerides 115 mg/dL (<150)
[2025-01-13 13:56] LABS: Add Urine Microscopic? YES; Appearance Urine Cloudy (Clear); Glucose Urine UA Negative (Negative); Leukocyte Esterase Ur 1+ LEU/UL (Negative); Nitrate Urine Positive (Negative); Non Pathogenic Casts 0-2; Specific Grav Ur 1.024 (1.001-1.035)
[2025-01-13] MEDS: METOPROLOL SUCCINATE EXT REL 50 MG TABCR PO (14:43)
--- NOTE | 2025-01-13 16:41 | P.PNIM_ITS ---
Progress Note: A&P Assessment and Plan (1) Acute non-ST elevation myocardial infarction (NSTEMI): Onset Date: 01/2025 Code(s): I21.4 - Non-ST elevation (NSTEMI) myocardial infarction Status: Acute Assessment and Plan: Cardiology on board, s/p cath, LAD occluded s/p stent x1. Cardiology recommending DAPT for 1 year, followed by lifelong aspirin, metoprolol tartate, amlodipine, losartan (2) A-fib: Code(s): I48.91 - Unspecified atrial fibrillation Status: Acute Assessment and Plan: Rate is controlled, transitioned back to apixaban (3) Essential (primary) hypertension: Code(s): I10 - Essential (primary) hypertension Status: Acute Assessment and Plan: Stable on current medications, will continue current treatment. (4) Type 2 diabetes mellitus without complications: Code(s): E11.9 - Type 2 diabetes mellitus without complications Status: Acute Assessment and Plan: Stable on current medications, will continue current treatment. (5) Asymptomatic bacteriuria: Code(s): R82.71 - Bacteriuria Status: Acute Assessment and Plan: Noted on ED UA- no symptoms. Will repeat and if positive on culture, start therapy. Plan Admit patient to IMU as a full admission Cardiology on board Full code DVT prophylaxis pharmacological. Subjective Date/time seen: 01/13/25 16:41 Interval history: 69-year-old admitted for chest pain, atrial fibrillation. Date of service 01/13/2025: Went to the cardiac catheterization lab yesterday was found have an occluded mid LAD status post PCI as detailed below. She is feeling better today. No chest pain. No shortness of breath. Still in AFib. Review of Systems Review of Systems: All systems reviewed & are unremarkable except as noted in HPI and below (the history and physical examination.) Exam Narrative: CONST: No acute distress. Well nourished. HENMT: Head is normocephalic and atraumatic. Moist mucous membranes. No posterior oropharynx erythema. EYES: No scleral icterus. No conjunctival injection or pallor. PERRL. NECK: No meningeal signs. RESP: Able to speak in full sentences. Normal respiratory effort. CTAB. CARDIO: irregular rate. Irregularly irregular rhythm. 2+ DP and radial pulses bilaterally. GI: Nondistended. No tenderness to palpation. Soft. : No CVA tenderness to palpation. SKIN: No rashes or lesions noted on exposed skin. NEURO: Oriented x3. Moves all extremities. EXTREM/MSK/BACK: No pedal edema. PSYCH: Normal affect. Objective Data Vital Signs Vital Signs: Vital Signs - 24 hr 01/12/25 16:45 01/12/25 16:45 01/12/25 17:00 Temperature Pulse Rate 83 Pulse Rate [Monitor] 83 80 Respiratory Rate 15 Blood Pressure 106/69 Pulse Oximetry 95 Oxygen Delivery Room Air 01/12/25 17:00 01/12/25 17:17 01/12/25 17:17 Temperature Pulse Rate 80 86 Pulse Rate [Monitor] 86 Respiratory Rate 14 15 Blood Pressure 100/58 L 93/40 L Pulse Oximetry 95 96 Oxygen Delivery Room Air Room Air 01/12/25 17:44 01/12/25 18:00 01/12/25 18:02 Temperature 97.6 F Pulse Rate 66 69 Pulse Rate [Monitor] 67 Respiratory Rate Blood Pressure 87/49 L Pulse Oximetry 96 Oxygen Delivery 01/12/25 18:45 01/12/25 20:00 01/12/25 20:00 Temperature Pulse Rate 71 88 Pulse Rate [Monitor] Respiratory Rate Blood Pressure 92/33 L Pulse Oximetry 92 Oxygen Delivery Room Air 01/12/25 20:12 01/12/25 20:36 01/12/25 22:00 Temperature 98.1 F Pulse Rate 81 72 Pulse Rate [Monitor] Respiratory Rate 20 Blood Pressure 116/69 Pulse Oximetry 96 96 Oxygen Delivery Room Air 01/13/25 00:00 01/13/25 00:00 01/13/25 00:00 Temperature 98.0 F Pulse Rate 76 87 Pulse Rate [Monitor] Respiratory Rate 16 Blood Pressure 110/69 Pulse Oximetry 95 Oxygen Delivery Room Air 01/13/25 02:00 01/13/25 04:00 01/13/25 04:00 Temperature Pulse Rate 87 85 Pulse Rate [Monitor] Respiratory Rate Blood Pressure Pulse Oximetry Oxygen Delivery Room Air 01/13/25 05:07 01/13/25 06:00 01/13/25 08:00 Temperature 98.3 F 98.3 F Pulse Rate 65 81 97 Pulse Rate [Monitor] Respiratory Rate 14 18 Blood Pressure 119/59 L 111/57 L Pulse Oximetry 93 95 Oxygen Delivery 01/13/25 08:00 01/13/25 08:00 01/13/25 10:00 Temperature Pulse Rate 79 84 Pulse Rate [Monitor] Respiratory Rate Blood Pressure Pulse Oximetry Oxygen Delivery Room Air 01/13/25 10:18 01/13/25 12:00 01/13/25 12:00 Temperature 98.4 F Pulse Rate 103 H 81 Pulse Rate [Monitor] Respiratory Rate 16 Blood Pressure 103/51 L Pulse Oximetry 98 Oxygen Delivery Room Air 01/13/25 12:00 01/13/25 14:00 01/13/25 14:43 Temperature Pulse Rate 86 86 81 Pulse Rate [Monitor] Respiratory Rate Blood Pressure Pulse Oximetry Oxygen Delivery 01/13/25 15:46 01/13/25 15:57 Temperature 98.1 F Pulse Rate 75 Pulse Rate [Monitor] Respiratory Rate 16 Blood Pressure 99/65 L Pulse Oximetry 97 Oxygen Delivery Room Air Intake/Output Intake/Output: Intake & Output 01/10/25 01/11/25 01/12/25 01/13/25 23:59 23:59 23:59 23:59 Intake Total 665 910 Output Total 200 Balance 665 710 Meds/Results Medications: Active Medications Generic Name Dose Route Start Last Admin Trade Name Freq PRN Reason Stop Dose Admin Apixaban 5 mg 01/13/25 21:00 Apixaban 5 Mg Tablet PO Q12HR SABAS Aspirin 81 mg 01/13/25 09:00 01/13/25 10:18 Aspirin 81 Mg Enteric Tablet PO 81 mg QAM SABAS Administration Atorvastatin Calcium 80 mg 01/12/25 21:00 01/12/25 20:43 Atorvastatin 40 Mg Tablet PO 80 mg QHS SABAS Administration Clopidogrel Bisulfate 75 mg 01/13/25 09:00 01/13/25 10:18 Clopidogrel Bisulfate 75 Mg Tablet PO 75 mg QAM SABAS Administration Dextrose 12.5 gm 01/13/25 10:40 Dextrose 50% 25 Gm/50 Ml Syringe IV PUSH PRN PRN Hypoglycemia Protocol Glucagon 1 mg 01/13/25 10:40 Glucagon For Inj 1 Mg Vial IM PRN PRN Hypoglycemia Protocol Glucose 15 gm 01/13/25 10:40 Glucose Oral Gel 15 Gm Of Glucse In 37.5 Gm Tube PO PRN PRN Hypoglycemia Protocol Dextrose 1,000 mls @ 100 mls/hr 01/13/25 10:40 Dextrose 5% 1,000 Ml IVPB PRN PRN Hypoglycemia Protocol Insulin Aspart 3 - 6 units 01/13/25 12:00 01/13/25 12:45 Insulin Aspart (*Bkc) 100 Units/Ml SUB-Q Not Given TIDWM [facility] Protocol Insulin Aspart 1 - 3 units 01/13/25 21:00 Insulin Aspart (*Bkc) 100 Units/Ml SUB-Q HS [facility] Protocol Losartan Potassium 25 mg 01/14/25 09:00 Losartan Potassium 25 Mg Tablet PO DAILY SABAS Metoprolol Succinate 50 mg 01/13/25 10:40 01/13/25 14:43 Metoprolol Succinate Ext Rel 50 Mg Tabcr PO 50 mg QAM SABAS Administration Perflutren Lipid Microsphere 0 ml 01/12/25 22:00 Perflutren Lipid Microspheres 1.5 Ml Vial Diluted To 10 Ml Total Volume IV PUSH 01/15/25 22:00 ONCE PRN adequate visualization Protocol Radiology Results: ITS Impressions Chest X-Ray 01/12/25 06:46 IMPRESSION: 1. No acute cardiopulmonary findings. Head CT 01/12/25 07:44 IMPRESSION: 1. No acute intracranial findings. Chest CTA 01/12/25 07:47 IMPRESSION: 1. No PE or other acute cardiopulmonary findings. Labs Labs: Laboratory Results - last 24 hr 01/13/25 01/13/25 01/13/25 03:38 03:43 11:17 WBC 8.1 RBC 4.39 Hgb 12.9 Hct 39.2 MCV 89.3 MCH 29.4 MCHC 32.9 RDW 13.3 Plt Count 226 MPV 9.3 Immature Gran % (Auto) 0.5 Neut % (Auto) 63.6 Lymph % (Auto) 26.3 [place] % (Auto) 6.3 Eos % (Auto) 2.6 Baso % (Auto) 0.7 Lymph # (Auto) 2.12 [place] # (Auto) 0.5 Eos # (Auto) 0.2 Baso # (Auto) 0.1 Abs Immat Gran (auto) 0.04 H Absolute Neuts (auto) 5.1 Absolute Nucleated RBC 0.000 Nucleated RBC % 0.0 POC Capillary Glucose 150 H Triglycerides 115 Cholesterol 168 LDL Cholesterol Direct 90 HDL Direct 45 Urine Color Urine Appearance Urine pH Ur Specific [place] Urine Protein Urine Glucose (UA) Urine Ketones Ur Blood (Man) Urine Nitrate Urine Bilirubin Urine Urobilinogen Leukocyte Esterase Rfl Urine RBC Urine WBC Ur Squamous Epith Cells Urine Bacteria Urine Casts 01/13/25 01/13/25 13:26 16:30 WBC RBC Hgb Hct MCV MCH MCHC RDW Plt Count MPV Immature Gran % (Auto) Neut % (Auto) Lymph % (Auto) [place] % (Auto) Eos % (Auto) Baso % (Auto) Lymph # (Auto) [place] # (Auto) Eos # (Auto) Baso # (Auto) Abs Immat Gran (auto) Absolute Neuts (auto) Absolute Nucleated RBC Nucleated RBC % POC Capillary Glucose 145 H Triglycerides Cholesterol LDL Cholesterol Direct HDL Direct Urine Color Yellow Urine Appearance Cloudy H Urine pH 6.0 Ur Specific [place] 1.024 Urine Protein Trace Urine Glucose (UA) Negative Urine Ketones Trace H Ur Blood (Man) Negative Urine Nitrate Positive H Urine Bilirubin Negative Urine Urobilinogen 1.0 Leukocyte Esterase Rfl 1+ H Urine RBC 0-2 Urine WBC 6-10 H Ur Squamous Epith Cells Few Urine Bacteria 4+ Urine Casts 0-2 Quality VTE Prophylaxis VTE prophylaxis: pharmacologic ordered Hospitalist [facility] Advance Care Plan I have confirmed that the patient's Advanced Care Plan is present, code status is documented, or surrogate decision maker is listed in patient medical record.: Yes Medication Reconciliation I have utilized all available resources to obtain, update and review the patients current medications (includes all prescriptions, OTC, herbals, cannabis, and nutritional supplements).: Yes
[2025-01-13] MEDS: APIXABAN 5 MG TABLET PO (21:47)
[2025-01-13] MEDS: ATORVASTATIN 40 MG TABLET 80 MG PO (21:47)
[2025-01-14] VITALS (15 sets, daily range): BP systolic 108–132; BP diastolic 54–81; PULSE 46–122; RESP 14–18; TEMP 36.4–37.5; O2SAT 95–99
[2025-01-14 04:58] LABS: Hematocrit 35.6 % (37.0-47.0); Hemoglobin 11.5 g/dL (12.0-15.0); Immature Granulocyte Percent A 0.4 % (0-0.5); Lymphocytes Absolute Auto 2.05 K/mm3 (0.9-3.2); Mean Corpuscular HGB Conc 32.3 g/dl (32-36); Mean Corpuscular Hemoglobin 29.2 pg (26-34); Mean Corpuscular Volume 90.4 fl (80-100); Nucleated Red Blood Cells Absolute Auto 0.000 K/mm3 (0.0-0.012); Nucleated Red Blood Cells Perc 0.0 % (0.0-0.2); Platelet Count Result 181 k/mm3 (150-375); Red Blood Count 3.94 M/mm3 (4.2-5.4); White Blood Count 7.0 K/mm3 (4.5-10.0)
[2025-01-14 05:22] LABS: Anion Gap 5 mmol/L (4-12); Bilirubin,Total 1.0 mg/dL (0.2-1.3); Blood Urea Nitrogen 14 mg/dL (7-17); Calcium 8.5 mg/dL (8.4-10.2); Carbon Dioxide 27 mmol/L (22-30); Chloride 102 mmol/L (98-107); Estimated CRCL calculation 78 ml/min; Estimated Glomerular Filt Rate > 60; Glucose 143 mg/dL (65-110); Potassium 3.3 mmol/L (3.4-5.0); Sodium 134 mmol/L (137-145)
[2025-01-14 05:23] LABS: Alanine Aminotransferase 59 U/L (6-35); Albumin Level 3.2 g/dL (3.5-5.1); Alkaline Phosphatase 76 U/L (38-126); Aspartate Amino Transferase 121 U/L (14-36); Total Protein 5.9 g/dL (6.3-8.2)
[2025-01-14] MEDS: LOSARTAN POTASSIUM 25 MG TABLET PO (08:51)
[2025-01-14] MEDS: METOPROLOL SUCCINATE EXT REL 50 MG TABCR PO (08:51)
[2025-01-14] MEDS: CLOPIDOGREL BISULFATE 75 MG TABLET PO (08:52)
[2025-01-14] MEDS: APIXABAN 5 MG TABLET PO ×2 (08:52→21:06)
[2025-01-14] MEDS: ASPIRIN 81 MG ENTERIC TABLET PO (08:52)
--- NOTE | 2025-01-14 09:53 | PM.PNCARD ---
Progress Note: A&P Assessment and Plan (1) Acute non-ST elevation myocardial infarction (NSTEMI): Onset Date: 01/2025 Code(s): I21.4 - Non-ST elevation (NSTEMI) myocardial infarction Status: Acute (2) A-fib: Code(s): I48.91 - Unspecified atrial fibrillation Status: Acute (3) Type 2 diabetes mellitus without complications: Code(s): E11.9 - Type 2 diabetes mellitus without complications Status: Acute (4) Obstructive sleep apnea: Code(s): G47.33 - Obstructive sleep apnea (adult) (pediatric) Status: Acute (5) Morbid (severe) obesity due to excess calories: Code(s): E66.01 - Morbid (severe) obesity due to excess calories Status: Acute (6) Essential (primary) hypertension: Code(s): I10 - Essential (primary) hypertension Status: Acute (7) Ischemic cardiomyopathy: Code(s): I25.5 - Ischemic cardiomyopathy Status: Acute Assessment and Plan: EF 40-45%. Plan Assessment; 1. Acute coronary syndrome with classic chest pain at rest radiating to back and jaw and left arm recurring in the morning, associated with EKG changes and elevated cardiac enzymes. The trend does suggest acute coronary syndrome. EKG is not very classic for ST segment elevation however he does have suggestion for old anteroseptal myocardial infarction with ST coving. 2. History of morbid obesity with BMI of 46 and history of obstructive sleep apnea. 3. History of hypertension, hyperlipidemia and type 2 diabetes. 4. Ischemic cardiomyopathy 5. Atrial fibrillation Recommendations: Because of her ischemic cardiomyopathy: Continue long-acting metoprolol succinate and losartan Regarding her atrial fibrillation: Continue Eliquis for now. Outpatient cardioversion recommended. She should be on triple therapy x1 month and then stop on anti-platelet agents at that point. Will likely attempt cardioversion as an outpatient in 4-6 weeks. She understands by high bleeding risk given triple therapy. Potassium today is 3.3. Will replace with 40 mg p.o. x1 Continue atorvastatin for hyperlipidemia coronary disease Hospitalist to manage diabetes Subjective Date/time seen: 01/14/25 09:53 Interval history: 69-year-old admitted for chest pain, atrial fibrillation. Date of service 01/13/2025: Went to the cardiac catheterization lab yesterday was found have an occluded mid LAD status post PCI as detailed below. She is feeling better today. No chest pain. No shortness of breath. Still in AFib. Date of service 01/14/2025: Still in atrial fibrillation but heart rate is better controlled. No significant chest pain or shortness of breath Review of Systems Review of Systems: All systems reviewed & are unremarkable except as noted in HPI and below Constitutional: Constitutional: Denies body ache(s) Eyes: Eyes: Denies blurry vision ENT: Reports Normal hearing present Cardiovascular: Cardiovascular: Denies chest pain and Denies dyspnea Respiratory: Respiratory: Denies dyspnea Gastrointestinal: Gastrointestinal: Denies abdominal pain Genitourinary: Genitourinary: Denies hematuria Musculoskeletal: Musculoskeletal: Denies myalgias Integumentary/Breasts: Skin/Breast: Denies pruritus Neurologic: Reports Normal hearing present, Denies Abnormal speech present and Denies behavioral changes Psychiatric: Psychiatric: Denies behavioral changes Endocrine: Endocrine: Denies change in body appearance Hematologic/Lymphatic: Hematologic/Lymphatic: Denies easy bleeding Allergic/Immunologic: Allergic/Immunologic: Denies GI upset with certain foods Exam Narrative: Awake alert oriented appears to be in no acute distress. Appears stated age Const: General: comfortable and no acute distress HENMT: Ears: TM's normal bilaterally Face/Nose/Sinus: Normal nares present Eyes: General: appearance normal, both eyes and all related structures Sclera: sclerae normal Neck: Neck: supple and no JVD Resp: Effort & Inspection: normal respiratory effort Auscultation: clear to auscultation bilaterally Cardio: Rate: regular rate Rhythm: abnormal rhythm irregularly irregular GI: Inspection: non-distended Skin: General skin exam: normal color and no rashes or lesions noted Other: Right wrist still and brace following catheterization Neuro: General: No gait normal Cranial nerves: Yes Normal hearing present Speech: normal speech and No Abnormal speech present Extrem: General: normal to inspection Psych: Mental Status: mental status grossly normal Affect: normal affect Objective Data Vital Signs Vital Signs: Vital Signs - 24 hr 01/13/25 10:00 01/13/25 10:18 01/13/25 12:00 Temperature 36.9 C Pulse Rate 84 103 H 81 Respiratory Rate 16 Blood Pressure 103/51 L Pulse Oximetry 98 Oxygen Delivery 01/13/25 12:00 01/13/25 12:00 01/13/25 14:00 Temperature Pulse Rate 86 86 Respiratory Rate Blood Pressure Pulse Oximetry Oxygen Delivery Room Air 01/13/25 15:46 01/13/25 15:57 01/13/25 16:00 Temperature 36.7 C Pulse Rate 75 76 Respiratory Rate 16 Blood Pressure 99/65 L Pulse Oximetry 97 Oxygen Delivery Room Air 01/13/25 18:00 01/13/25 20:00 01/13/25 20:00 Temperature 36.8 C Pulse Rate 76 84 60 Respiratory Rate 14 Blood Pressure 108/53 L Pulse Oximetry 97 Oxygen Delivery 01/13/25 20:00 01/13/25 21:25 01/13/25 22:00 Temperature Pulse Rate 75 Respiratory Rate Blood Pressure Pulse Oximetry 97 Oxygen Delivery Room Air Room Air 01/14/25 00:00 01/14/25 00:00 01/14/25 00:00 Temperature 36.6 C Pulse Rate 86 122 H Respiratory Rate 16 Blood Pressure 113/54 L Pulse Oximetry 97 Oxygen Delivery Room Air 01/14/25 02:00 01/14/25 04:00 01/14/25 04:00 Temperature 36.8 C Pulse Rate 55 L 81 Respiratory Rate 14 Blood Pressure 132/76 Pulse Oximetry 95 Oxygen Delivery Room Air 01/14/25 04:00 01/14/25 06:00 01/14/25 08:00 Temperature 37.5 C Pulse Rate 93 60 46 L Respiratory Rate 18 Blood Pressure 114/70 Pulse Oximetry 98 Oxygen Delivery 01/14/25 08:00 01/14/25 08:51 Temperature Pulse Rate 90 Respiratory Rate Blood Pressure Pulse Oximetry Oxygen Delivery Room Air Intake/Output Intake/Output: Intake & Output 01/11/25 01/12/25 01/13/25 01/14/25 23:59 23:59 23:59 23:59 Intake Total 665 1150 540 Output Total 350 1300 Balance 665 800 -293 Meds/Results Medications: Active Medications Generic Name Dose Route Start Last Admin Trade Name Freq PRN Reason Stop Dose Admin Amoxicillin/Clavulanate Potassium 1 tablet 01/13/25 21:00 01/14/25 08:52 Amoxicillin/Clavulanate K 500-125 Mg Tab PO 01/18/25 21:00 1 tablet Q12HR SABAS Administration Apixaban 5 mg 01/13/25 21:00 01/14/25 08:52 Apixaban 5 Mg Tablet PO 5 mg Q12HR SABAS Administration Aspirin 81 mg 01/13/25 09:00 01/14/25 08:52 Aspirin 81 Mg Enteric Tablet PO 81 mg QAM SABAS Administration Atorvastatin Calcium 80 mg 01/12/25 21:00 01/13/25 21:47 Atorvastatin 40 Mg Tablet PO 80 mg QHS SABAS Administration Clopidogrel Bisulfate 75 mg 01/13/25 09:00 01/14/25 08:52 Clopidogrel Bisulfate 75 Mg Tablet PO 75 mg QAM SABAS Administration Dextrose 12.5 gm 01/13/25 10:40 Dextrose 50% 25 Gm/50 Ml Syringe IV PUSH PRN PRN Hypoglycemia Protocol Glucagon 1 mg 01/13/25 10:40 Glucagon For Inj 1 Mg Vial IM PRN PRN Hypoglycemia Protocol Glucose 15 gm 01/13/25 10:40 Glucose Oral Gel 15 Gm Of Glucse In 37.5 Gm Tube PO PRN PRN Hypoglycemia Protocol Hydrocortisone 1 applic 01/13/25 21:00 01/14/25 08:56 Hydrocortisone 1% 30 Gm Ointment TOPICAL Not Given Q12HR [facility] Dextrose 1,000 mls @ 100 mls/hr 01/13/25 10:40 Dextrose 5% 1,000 Ml IVPB PRN PRN Hypoglycemia Protocol Insulin Aspart 3 - 6 units 01/13/25 12:00 01/14/25 08:10 Insulin Aspart (*Bkc) 100 Units/Ml SUB-Q Not Given TIDWM [facility] Protocol Insulin Aspart 1 - 3 units 01/13/25 21:00 01/13/25 21:51 Insulin Aspart (*Bkc) 100 Units/Ml SUB-Q Not Given HS [facility] Protocol Losartan Potassium 25 mg 01/14/25 09:00 01/14/25 08:51 Losartan Potassium 25 Mg Tablet PO 25 mg DAILY SABAS Administration Metoprolol Succinate 50 mg 01/13/25 10:40 01/14/25 08:51 Metoprolol Succinate Ext Rel 50 Mg Tabcr PO 50 mg QAM [facility] Administration Perflutren Lipid Microsphere 0 ml 01/12/25 22:00 Perflutren Lipid Microspheres 1.5 Ml Vial Diluted To 10 Ml Total Volume IV PUSH 01/15/25 22:00 ONCE PRN adequate visualization Protocol Radiology Results: ITS Impressions Chest X-Ray 01/12/25 06:46 IMPRESSION: 1. No acute cardiopulmonary findings. Head CT 01/12/25 07:44 IMPRESSION: 1. No acute intracranial findings. Chest CTA 01/12/25 07:47 IMPRESSION: 1. No PE or other acute cardiopulmonary findings. Labs Labs: Laboratory Results - last 24 hr 01/13/25 01/13/25 01/13/25 03:38 11:17 13:26 WBC RBC Hgb Hct MCV MCH MCHC RDW Plt Count MPV Immature Gran % (Auto) Neut % (Auto) Lymph % (Auto) [place] % (Auto) Eos % (Auto) Baso % (Auto) Lymph # (Auto) [place] # (Auto) Eos # (Auto) Baso # (Auto) Abs Immat Gran (auto) Absolute Neuts (auto) Absolute Nucleated RBC Nucleated RBC % Sodium Potassium Chloride Carbon Dioxide Anion Gap BUN Creatinine Estim Creat Clear Calc Estimated GFR Glucose POC Capillary Glucose 150 H Calcium Total Bilirubin AST ALT Alkaline Phosphatase Total Protein Albumin Triglycerides 115 Cholesterol 168 LDL Cholesterol Direct 90 HDL Direct 45 Urine Color Yellow Urine Appearance Cloudy H Urine pH 6.0 Ur Specific [place] 1.024 Urine Protein Trace Urine Glucose (UA) Negative Urine Ketones Trace H Ur Blood (Man) Negative Urine Nitrate Positive H Urine Bilirubin Negative Urine Urobilinogen 1.0 Leukocyte Esterase Rfl 1+ H Urine RBC 0-2 Urine WBC 6-10 H Ur Squamous Epith Cells Few Urine Bacteria 4+ Urine Casts 0-2 01/13/25 01/13/25 01/14/25 16:30 19:46 04:50 WBC 7.0 RBC 3.94 L Hgb 11.5 L Hct 35.6 L MCV 90.4 MCH 29.2 MCHC 32.3 RDW 13.2 Plt Count 181 MPV 9.3 Immature Gran % (Auto) 0.4 Neut % (Auto) 58.8 Lymph % (Auto) 29.2 [place] % (Auto) 8.0 Eos % (Auto) 3.0 Baso % (Auto) 0.6 Lymph # (Auto) 2.05 [place] # (Auto) 0.6 Eos # (Auto) 0.2 Baso # (Auto) 0.0 Abs Immat Gran (auto) 0.03 Absolute Neuts (auto) 4.1 Absolute Nucleated RBC 0.000 Nucleated RBC % 0.0 Sodium 134 L Potassium 3.3 L Chloride 102 Carbon Dioxide 27 Anion Gap 5 BUN 14 D Creatinine 0.76 Estim Creat Clear Calc 78 Estimated GFR > 60 Glucose 143 H POC Capillary Glucose 145 H 156 H Calcium 8.5 Total Bilirubin 1.0 AST 121 H ALT 59 H Alkaline Phosphatase 76 Total Protein 5.9 L Albumin 3.2 L Triglycerides Cholesterol LDL Cholesterol Direct HDL Direct Urine Color Urine Appearance Urine pH Ur Specific [place] Urine Protein Urine Glucose (UA) Urine Ketones Ur Blood (Man) Urine Nitrate Urine Bilirubin Urine Urobilinogen Leukocyte Esterase Rfl Urine RBC Urine WBC Ur Squamous Epith Cells Urine Bacteria Urine Casts 01/14/25 07:11 WBC RBC Hgb Hct MCV MCH MCHC RDW Plt Count MPV Immature Gran % (Auto) Neut % (Auto) Lymph % (Auto) [place] % (Auto) Eos % (Auto) Baso % (Auto) Lymph # (Auto) [place] # (Auto) Eos # (Auto) Baso # (Auto) Abs Immat Gran (auto) Absolute Neuts (auto) Absolute Nucleated RBC Nucleated RBC % Sodium Potassium Chloride Carbon Dioxide Anion Gap BUN Creatinine Estim Creat Clear Calc Estimated GFR Glucose POC Capillary Glucose 134 H Calcium Total Bilirubin AST ALT Alkaline Phosphatase Total Protein Albumin Triglycerides Cholesterol LDL Cholesterol Direct HDL Direct Urine Color Urine Appearance Urine pH Ur Specific [place] Urine Protein Urine Glucose (UA) Urine Ketones Ur Blood (Man) Urine Nitrate Urine Bilirubin Urine Urobilinogen Leukocyte Esterase Rfl Urine RBC Urine WBC Ur Squamous Epith Cells Urine Bacteria Urine Casts
[2025-01-14] MEDS: POTASSIUM CHLORIDE 20 MEQ ER TABLET 40 MEQ PO (11:00)
--- NOTE | 2025-01-14 14:31 | P.PNIM_ITS ---
Progress Note: A&P Assessment and Plan (1) Acute non-ST elevation myocardial infarction (NSTEMI): Onset Date: 01/2025 Code(s): I21.4 - Non-ST elevation (NSTEMI) myocardial infarction Status: Acute Assessment and Plan: Cardiology on board, s/p cath, LAD occluded s/p stent x1. Cardiology recommending DAPT for 1 year, followed by lifelong aspirin, metoprolol tartate, amlodipine, losartan Stable from Cardiology standpoint for discharge. (2) A-fib: Code(s): I48.91 - Unspecified atrial fibrillation Status: Acute Assessment and Plan: Rate is controlled, transitioned back to apixaban Continue metoprolol succinate 50 mg daily Recommendation from assistant pastry chef to cardiovert in 4-6 weeks in the outpatient setting (3) Essential (primary) hypertension: Code(s): I10 - Essential (primary) hypertension Status: Acute Assessment and Plan: Stable on losartan 25 mg daily, will continue current treatment. (4) Type 2 diabetes mellitus without complications: Code(s): E11.9 - Type 2 diabetes mellitus without complications Status: Acute Assessment and Plan: Stable on current medications, will continue current treatment. (5) Asymptomatic bacteriuria: Code(s): R82.71 - Bacteriuria Status: Acute Assessment and Plan: Noted on ED UA- no symptoms. Will repeat and if positive on culture, start therapy. (6) Cellulitis of right breast: Code(s): N61.0 - Mastitis without abscess Status: Acute Assessment and Plan: Hospitalization complicated by onset of erythematous rash the night prior, was seen and treated with oral Augmentin course and topical hydrocortisone to cover for dermatitis and for cellulitis. Patient denies fever, chills, significant pain, however lesion is warm to palpation and is present over much of the breast. No recent exposure to any potential allogeneic agents. Only mild itching is noted Continue Augmentin course p.o. for time being, total 5 days therapy (7) Elevated liver enzymes: Code(s): R74.8 - Abnormal levels of other serum enzymes Status: Acute Assessment and Plan: Liver enzymes noted to be elevated, AST went from 30-121 and ALT went from 23- 59. No clear cause at this time. Ultrasound of the liver was conducted, and all abnormalities detected Will trend liver enzymes in the morning but likely discharge with GI follow-up and further follow-up labs if needed Plan Full code DVT prophylaxis pharmacological. Subjective Date/time seen: 01/14/25 14:31 Review of Systems Review of Systems: All systems reviewed & are unremarkable except as noted in HPI and below (the history and physical examination.) Exam Narrative: CONST: No acute distress. Well nourished. HENMT: Head is normocephalic and atraumatic. Moist mucous membranes. No posterior oropharynx erythema. EYES: No scleral icterus. No conjunctival injection or pallor. PERRL. NECK: No meningeal signs. RESP: Able to speak in full sentences. Normal respiratory effort. CTAB. CARDIO: irregular rate. Irregularly irregular rhythm. 2+ DP and radial pulses bilaterally. GI: Nondistended. No tenderness to palpation. Soft. : No CVA tenderness to palpation. SKIN: No rashes or lesions noted on exposed skin. NEURO: Oriented x3. Moves all extremities. EXTREM/MSK/BACK: No pedal edema. PSYCH: Normal affect. Objective Data Vital Signs Vital Signs: Vital Signs - 24 hr 01/13/25 15:46 01/13/25 15:57 01/13/25 16:00 Temperature 98.1 F Pulse Rate 75 76 Respiratory Rate 16 Blood Pressure 99/65 L Pulse Oximetry 97 Oxygen Delivery Room Air 01/13/25 18:00 01/13/25 20:00 01/13/25 20:00 Temperature 98.2 F Pulse Rate 76 84 60 Respiratory Rate 14 Blood Pressure 108/53 L Pulse Oximetry 97 Oxygen Delivery 01/13/25 20:00 01/13/25 21:25 01/13/25 22:00 Temperature Pulse Rate 75 Respiratory Rate Blood Pressure Pulse Oximetry 97 Oxygen Delivery Room Air Room Air 01/14/25 00:00 01/14/25 00:00 01/14/25 00:00 Temperature 97.9 F Pulse Rate 86 122 H Respiratory Rate 16 Blood Pressure 113/54 L Pulse Oximetry 97 Oxygen Delivery Room Air 01/14/25 02:00 01/14/25 04:00 01/14/25 04:00 Temperature 98.2 F Pulse Rate 55 L 81 Respiratory Rate 14 Blood Pressure 132/76 Pulse Oximetry 95 Oxygen Delivery Room Air 01/14/25 04:00 01/14/25 06:00 01/14/25 08:00 Temperature 99.5 F Pulse Rate 93 60 46 L Respiratory Rate 18 Blood Pressure 114/70 Pulse Oximetry 98 Oxygen Delivery 01/14/25 08:00 01/14/25 08:00 01/14/25 08:51 Temperature Pulse Rate 76 90 Respiratory Rate Blood Pressure Pulse Oximetry Oxygen Delivery Room Air 01/14/25 10:00 01/14/25 11:55 01/14/25 12:00 Temperature 97.6 F Pulse Rate 78 89 Respiratory Rate 18 Blood Pressure 108/68 Pulse Oximetry 99 Oxygen Delivery Room Air 01/14/25 12:00 Temperature Pulse Rate 80 Respiratory Rate Blood Pressure Pulse Oximetry Oxygen Delivery Intake/Output Intake/Output: Intake & Output 01/11/25 01/12/25 01/13/25 01/14/25 23:59 23:59 23:59 23:59 Intake Total 665 1150 860 Output Total 350 1800 Balance 665 800 -940 Meds/Results Medications: Active Medications Generic Name Dose Route Start Last Admin Trade Name Freq PRN Reason Stop Dose Admin Amoxicillin/Clavulanate Potassium 1 tablet 01/13/25 21:00 01/14/25 08:52 Amoxicillin/Clavulanate K 500-125 Mg Tab PO 01/18/25 21:00 1 tablet Q12HR SABAS Administration Apixaban 5 mg 01/13/25 21:00 01/14/25 08:52 Apixaban 5 Mg Tablet PO 5 mg Q12HR SABAS Administration Aspirin 81 mg 01/13/25 09:00 01/14/25 08:52 Aspirin 81 Mg Enteric Tablet PO 81 mg QAM SABAS Administration Atorvastatin Calcium 80 mg 01/12/25 21:00 01/13/25 21:47 Atorvastatin 40 Mg Tablet PO 80 mg QHS SABAS Administration Clopidogrel Bisulfate 75 mg 01/13/25 09:00 01/14/25 08:52 Clopidogrel Bisulfate 75 Mg Tablet PO 75 mg QAM SABAS Administration Dextrose 12.5 gm 01/13/25 10:40 Dextrose 50% 25 Gm/50 Ml Syringe IV PUSH PRN PRN Hypoglycemia Protocol Glucagon 1 mg 01/13/25 10:40 Glucagon For Inj 1 Mg Vial IM PRN PRN Hypoglycemia Protocol Glucose 15 gm 01/13/25 10:40 Glucose Oral Gel 15 Gm Of Glucse In 37.5 Gm Tube PO PRN PRN Hypoglycemia Protocol Hydrocortisone 1 applic 01/13/25 21:00 01/14/25 08:56 Hydrocortisone 1% 30 Gm Ointment TOPICAL Not Given Q12HR SABAS Dextrose 1,000 mls @ 100 mls/hr 01/13/25 10:40 Dextrose 5% 1,000 Ml IVPB PRN PRN Hypoglycemia Protocol Insulin Aspart 3 - 6 units 01/13/25 12:00 01/14/25 08:10 Insulin Aspart (*Bkc) 100 Units/Ml SUB-Q Not Given TIDWM SABAS Protocol Insulin Aspart 1 - 3 units 01/13/25 21:00 01/13/25 21:51 Insulin Aspart (*Bkc) 100 Units/Ml SUB-Q Not Given HS SABAS Protocol Losartan Potassium 25 mg 01/14/25 09:00 01/14/25 08:51 Losartan Potassium 25 Mg Tablet PO 25 mg DAILY SABAS Administration Metoprolol Succinate 50 mg 01/13/25 10:40 01/14/25 08:51 Metoprolol Succinate Ext Rel 50 Mg Tabcr PO 50 mg QAM SABAS Administration Perflutren Lipid Microsphere 0 ml 01/12/25 22:00 Perflutren Lipid Microspheres 1.5 Ml Vial Diluted To 10 Ml Total Volume IV PUSH 01/15/25 22:00 ONCE PRN adequate visualization Protocol Radiology Results: ITS Impressions Chest X-Ray 01/12/25 06:46 IMPRESSION: 1. No acute cardiopulmonary findings. Head CT 01/12/25 07:44 IMPRESSION: 1. No acute intracranial findings. Chest CTA 01/12/25 07:47 IMPRESSION: 1. No PE or other acute cardiopulmonary findings. Abdomen Ultrasound 01/14/25 13:13 IMPRESSION: 1. Normal right upper quadrant ultrasound status post cholecystectomy. Labs Labs: Laboratory Results - last 24 hr 01/13/25 01/13/25 01/14/25 16:30 19:46 04:50 WBC 7.0 RBC 3.94 L Hgb 11.5 L Hct 35.6 L MCV 90.4 MCH 29.2 MCHC 32.3 RDW 13.2 Plt Count 181 MPV 9.3 Immature Gran % (Auto) 0.4 Neut % (Auto) 58.8 Lymph % (Auto) 29.2 [place] % (Auto) 8.0 Eos % (Auto) 3.0 Baso % (Auto) 0.6 Lymph # (Auto) 2.05 [place] # (Auto) 0.6 Eos # (Auto) 0.2 Baso # (Auto) 0.0 Abs Immat Gran (auto) 0.03 Absolute Neuts (auto) 4.1 Absolute Nucleated RBC 0.000 Nucleated RBC % 0.0 Sodium 134 L Potassium 3.3 L Chloride 102 Carbon Dioxide 27 Anion Gap 5 BUN 14 D Creatinine 0.76 Estim Creat Clear Calc 78 Estimated GFR > 60 Glucose 143 H POC Capillary Glucose 145 H 156 H Calcium 8.5 Total Bilirubin 1.0 AST 121 H ALT 59 H Alkaline Phosphatase 76 Total Protein 5.9 L Albumin 3.2 L 01/14/25 01/14/25 07:11 11:47 WBC RBC Hgb Hct MCV MCH MCHC RDW Plt Count MPV Immature Gran % (Auto) Neut % (Auto) Lymph % (Auto) [place] % (Auto) Eos % (Auto) Baso % (Auto) Lymph # (Auto) [place] # (Auto) Eos # (Auto) Baso # (Auto) Abs Immat Gran (auto) Absolute Neuts (auto) Absolute Nucleated RBC Nucleated RBC % Sodium Potassium Chloride Carbon Dioxide Anion Gap BUN Creatinine Estim Creat Clear Calc Estimated GFR Glucose POC Capillary Glucose 134 H 115 H Calcium Total Bilirubin AST ALT Alkaline Phosphatase Total Protein Albumin Quality VTE Prophylaxis VTE prophylaxis: pharmacologic ordered Hospitalist MIPS Advance Care Plan I have confirmed that the patient's Advanced Care Plan is present, code status is documented, or surrogate decision maker is listed in patient medical record.: Yes Medication Reconciliation I have utilized all available resources to obtain, update and review the patients current medications (includes all prescriptions, OTC, herbals, cannabis, and nutritional supplements).: Yes
[2025-01-14] MEDS: INSULIN ASPART (*BKC) 100 UNITS/ML SUB-Q (17:47)
[2025-01-14] MEDS: ATORVASTATIN 40 MG TABLET 80 MG PO (21:07)
[2025-01-14] MEDS: HYDROCORTISONE 1% 30 GM OINTMENT 1 APPLIC TOPICAL (21:09)
[2025-01-15] VITALS (10 sets, daily range): BP systolic 117–130; BP diastolic 57–79; PULSE 48–119; RESP 14–16; TEMP 36.6–37.1; O2SAT 96–99
[2025-01-15 04:48] LABS: Hematocrit 36.3 % (37.0-47.0); Hemoglobin 11.8 g/dL (12.0-15.0); Immature Granulocyte Percent A 0.7 % (0-0.5); Lymphocytes Absolute Auto 2.08 K/mm3 (0.9-3.2); Mean Corpuscular HGB Conc 32.5 g/dl (32-36); Mean Corpuscular Hemoglobin 29.4 pg (26-34); Mean Corpuscular Volume 90.3 fl (80-100); Nucleated Red Blood Cells Absolute Auto 0.000 K/mm3 (0.0-0.012); Nucleated Red Blood Cells Perc 0.0 % (0.0-0.2); Platelet Count Result 186 k/mm3 (150-375); Red Blood Count 4.02 M/mm3 (4.2-5.4); White Blood Count 7.4 K/mm3 (4.5-10.0)
[2025-01-15 05:15] LABS: Alanine Aminotransferase 46 U/L (6-35); Albumin Level 3.2 g/dL (3.5-5.1); Alkaline Phosphatase 78 U/L (38-126); Anion Gap 2 mmol/L (4-12); Aspartate Amino Transferase 71 U/L (14-36); Bilirubin,Total 1.1 mg/dL (0.2-1.3); Blood Urea Nitrogen 11 mg/dL (7-17); Calcium 8.4 mg/dL (8.4-10.2); Carbon Dioxide 26 mmol/L (22-30); Chloride 107 mmol/L (98-107); Estimated CRCL calculation 85 ml/min; Estimated Glomerular Filt Rate > 60; Glucose 136 mg/dL (65-110); Potassium 3.4 mmol/L (3.4-5.0); Sodium 135 mmol/L (137-145); Total Protein 6.0 g/dL (6.3-8.2)
[2025-01-15] MEDS: CLOPIDOGREL BISULFATE 75 MG TABLET PO (08:23)
[2025-01-15] MEDS: ASPIRIN 81 MG ENTERIC TABLET PO (08:23)
[2025-01-15] MEDS: APIXABAN 5 MG TABLET PO (08:23)
[2025-01-15] MEDS: METOPROLOL SUCCINATE EXT REL 50 MG TABCR PO (08:24)
[2025-01-15] MEDS: LOSARTAN POTASSIUM 25 MG TABLET PO (08:24)
[2025-01-15] MEDS: HYDROCORTISONE 1% 30 GM OINTMENT 1 APPLIC TOPICAL (08:26)
--- NOTE | 2025-01-15 12:36 | P.DS_ITS ---
DS: Admitting Diagnosis Discharge Date 01/15/25 Admitting Diagnosis NSTEMI DS: Discharge Diagnosis Discharge Diagnosis (1) Acute non-ST elevation myocardial infarction (NSTEMI): Onset Date: 01/2025 Code(s): I21.4 - Non-ST elevation (NSTEMI) myocardial infarction Status: Acute Assessment and Plan: Status post left heart catheterization with occlusion noted at the LAD in the mid body at the takeoff of the 1st diagonal branch, distended. No further chest pain since catheterization. Plan: She should be on triple therapy x1 month and then stop on anti-platelet agents at that point. Cardiology follow-up on discharge (2) Ischemic cardiomyopathy: Code(s): I25.5 - Ischemic cardiomyopathy Status: Acute Assessment and Plan: On metoprolol succinate and losartan Plan: Continue both, cardiology outpatient follow-up discharge (3) A-fib: Qualifiers: Atrial fibrillation type: longstanding persistent Qualified Code(s): I48.11 - Longstanding persistent atrial fibrillation Code(s): I48.91 - Unspecified atrial fibrillation Status: Acute Assessment and Plan: On metoprolol and apixaban Plan: Continue both Patient will be considered for outpatient cardioversion 4-6 weeks per Cardiology recommendations Also on aspirin and clopidogrel for NSTEMI, per Cardiology to be continued for 1 month with patient transitioning to apixaban alone thereafter (4) Elevated liver enzymes: Code(s): R74.8 - Abnormal levels of other serum enzymes Status: Acute Assessment and Plan: At initial elevations in AST and ALT that have since trended down on follow-up. Consider transient medication induced transaminitis at this time. Liver ultrasound unremarkable. Plan: Will order outpatient liver enzymes to be repeated 2 weeks, advised patient to follow-up with her PCP (5) Cellulitis of right breast: Code(s): N61.0 - Mastitis without abscess Status: Acute Assessment and Plan: Patient reports erythema of the right breast with a rash appearing. Initial concern for cellulitis given rash was warm as well. Augmentin has been started, currently was on day 2. However patient reports more improvement with the application of hydrocortisone cream, and she reports that her rash is likely from her artist's representative resting on that area and giving off heat. Plan: Discontinued Augmentin Continue hydrocortisone cream (6) Asymptomatic bacteriuria: Code(s): R82.71 - Bacteriuria Status: Acute Assessment and Plan: UA positive twice for bacteria, nitrate and leukocyte esterase however patient is asymptomatic and squamous epithelium are noted on both samples. Augmentin was started for 2 days with consideration to this however no longer needed for rash Plan: Will hold off on antibiotics at this time given initial elevation of liver enzymes, and likely no need to treat at this time Patient aware to contact her PCP should be if she begins to notice symptoms such as dysuria (7) Type 2 diabetes mellitus without complications: Code(s): E11.9 - Type 2 diabetes mellitus without complications Status: Acute Assessment and Plan: Patient reports being on withdrawal for diabetes, however she has noticed increased belching lately since being on it. Informed patient that this may be indication of gastroparesis however she is able to transit food from the stomach to the intestine does not notice significant issue with this Plan: Advised patient to speak with PCP in regards to this issue to alter therapy as indicated (8) Essential (primary) hypertension: Code(s): I10 - Essential (primary) hypertension Status: Acute Assessment and Plan: On metoprolol DS: Summary Hospital Course Hospital Course: Patient is a 69-year-old female presents to the emergency department accompanied by her significant other complaining of chest pain. According to the patient and family chest pain started around 8:00 p.m. last night, middle her chest, squeezing, lasted about 30 minutes, patient had tingling and numbness in the neck and face area during the chest pain. Her pain returned again around 2:00 a.m and woke her from sleep. Patient denies any SOB associated with chest pain. No fever, no nausea or vomiting. Patient is taking blood pressure medications. Patient denies any vomiting. P atient has associated nausea. Patient denies any history of blood clots. Patient denies unilateral extremity swelling. Patient has abdominal pain, melena, hematochezia, urinary discomfort, focal weakness. Denies difficulty breathing. ER work up showed that patient had Non ST elevation MT. Patient was started on IV heparin and transferred to floor. At present patient is pain free and lying comfortably in bed. Cardiology consulted. Patient with the Cardiology in diagnosis of NSTEMI was made. She underwent cardiac catheterization with LAD showing occlusion sufficient enough requiring stenting. Since then she has not had any chest pain. Patient did report during hospitalization of red rash under breast, initial concern for cellulitis given erythematous nature and warmth on palpation. Augmentin was started however patient did report that her heart monitor normal the rest there and the use of certain degree of warmth and is likely the cause of this rash. Given minimal improvement on Augmentin and a significant improvement with use of hydrocortisone cream, Augmentin was discontinued. Hospitalization was also complicated by mild transient elevation in liver enzymes which is starting to come down now. Patient was cleared from Cardiology aspect for discharge, with recommendations as to her cardiomyopathy, atrial fibrillation, and NSTEMI made and to be enacted. Status at Discharge Cognitive/behavioral status at discharge: Stable Time Spent with Patient Time attestation: Total time spent providing and/or coordinating discharge services: Exam Const: General: comfortable and no acute distress HENMT: Face/Nose/Sinus: Normal nares present Mouth: Yes moist mucous membranes Eyes: General: appearance normal, both eyes and all related structures Sclera: sclerae normal Pupils: Equal, round and reactive pupils present EOM: EOMs intact bilaterally Neck: Neck: supple and no JVD Resp: Effort & Inspection: normal respiratory effort Auscultation: clear to auscultation bilaterally Cardio: Rate: regular rate Rhythm: abnormal rhythm GI: GI Palp: Yes Soft to palpation Auscultation: normal bowel sounds Skin: General skin exam: erythema (Right breast) Neuro: General: gait normal Motor exam (neuro): 5/5 motor strength present throughout and Normal motor muscle tone present throughout Sensory Exam: normal sensation Psych: Mental Status: mental status grossly normal Affect: normal affect DS: Data Data Completed and Pending Labs on day of discharge: Labs from last 24 hours 01/15/25 01/15/25 01/14/25 07:25 04:21 21:16 WBC 7.4 RBC 4.02 L Hgb 11.8 L Hct 36.3 L MCV 90.3 MCH 29.4 MCHC 32.5 RDW 13.3 Plt Count 186 MPV 9.4 Immature Gran % (Auto) 0.7 H Neut % (Auto) 59.9 Lymph % (Auto) 28.1 [place] % (Auto) 7.4 Eos % (Auto) 3.4 Baso % (Auto) 0.5 Lymph # (Auto) 2.08 [place] # (Auto) 0.6 Eos # (Auto) 0.3 Baso # (Auto) 0.0 Abs Immat Gran (auto) 0.05 H Absolute Neuts (auto) 4.4 Absolute Nucleated RBC 0.000 Nucleated RBC % 0.0 Sodium 135 L Potassium 3.4 Chloride 107 Carbon Dioxide 26 Anion Gap 2 L BUN 11 Creatinine 0.71 Estim Creat Clear Calc 85 Estimated GFR > 60 Glucose 136 H POC Capillary Glucose 148 H 131 H Calcium 8.4 Total Bilirubin 1.1 AST 71 H ALT 46 H Alkaline Phosphatase 78 Total Protein 6.0 L Albumin 3.2 L 01/14/25 16:31 WBC RBC Hgb Hct MCV MCH MCHC RDW Plt Count MPV Immature Gran % (Auto) Neut % (Auto) Lymph % (Auto) [place] % (Auto) Eos % (Auto) Baso % (Auto) Lymph # (Auto) [place] # (Auto) Eos # (Auto) Baso # (Auto) Abs Immat Gran (auto) Absolute Neuts (auto) Absolute Nucleated RBC Nucleated RBC % Sodium Potassium Chloride Carbon Dioxide Anion Gap BUN Creatinine Estim Creat Clear Calc Estimated GFR Glucose POC Capillary Glucose 218 H Calcium Total Bilirubin AST ALT Alkaline Phosphatase Total Protein Albumin Discharge Plan Discharge Consulting providers: Johnson De Leon Discharging Clinician: Pipo Moss Oca Patient Disposition: Home Activity: as tolerated Diet: heart healthy and diabetic Patient Instructions: Antibiotic Form Patient Language: [place]an Stand Alone Forms: General Discharge Information Follow-up/Referrals: Brian Zepeda MD [Physician, Cardiology] Discharge Medications: New clopidogrel 75 mg Tablet 75 mg PO QAM 90 Days Qty: 90 3RF atorvastatin 40 mg Tablet 80 mg PO QHS 30 Days Qty: 60 0RF Eliquis 5 mg Tablet 5 mg PO Q12HR 30 Days Qty: 60 0RF losartan 25 mg Tablet 25 mg PO DAILY 30 Days Qty: 30 0RF hydrocortisone 1 % Ointment 1 applic topical Q12HR 30 Days Qty: 1 0RF aspirin 81 mg Tablet,Delayed Release (Dr/Ec) 81 mg PO QAM 30 Days Qty: 30 0RF metoprolol succinate 50 mg Tablet Extended Release 24 Hr 50 mg PO QAM 30 Days Qty: 30 0RF Continued (DME) OneTouch Ultra Test Strip See Rx Instructions .Route Qty: 100 5RF Rx Instructions: Use one to test twice daily (DME) blood-glucose meter [OneTouch Ultra2 Meter] Kit See Rx Instructions .Route Qty: 1 0RF Rx Instructions: Use to test glucose once a day (DME) pen needle, diabetic 32 gauge x 1/4 needle See Rx Instructions .Route Qty: 100 3RF Rx Instructions: Use 1 daily for insulin (DME) lancets [OneTouch UltraSoft 2 Lancet] 30 gauge misc See Rx Instructions .Route Qty: 100 3RF Rx Instructions: use to check blood sugar twice dailiy amlodipine 5 mg tablet 5 mg PO DAILY 30 Days Qty: 90 2RF Mounjaro 15 mg/0.5 mL pen injector 15 mg subcut WEEKLY 30 Days Qty: 2 5RF glipizide 5 mg tablet 5 mg PO QHS 30 Days Qty: 90 0RF methocarbamol 500 mg tablet 500 mg PO QHS 30 Days Qty: 20 0RF Discontinued propranolol 160 mg capsule,extended release 24 hr See Rx Instructions .ROUTE .COMPLEX Qty: 90 3RF Dose Instruction: Take 1 capsule by mouth once daily Rx Instructions: Take 1 capsule by mouth once daily duloxetine 60 mg capsule,delayed release(DR/EC) 60 mg PO BID Qty: 180 2RF losartan-hydrochlorothiazide 100-12.5 mg tablet 1 tablet PO DAILY Qty: 90 2RF celecoxib 200 mg capsule 200 mg PO DAILY Qty: 90 2RF Date of admission: 01/13/25 13:50 Primary Care Provider: Raul Green Admitting Provider: Greg Stroud Attending physician on admission: Greg Stroud Condition: Stable Hospitalist MIPS Heart Failure (Exclusion) Patient has history of Heart Transplant or Left Ventricular Assistive Device?: No IF YES, STOP HERE Heart Failure (Qualifier) Patient has current or prior documentation of LVEF less than or equal to 40%, or mod/servere depressed LVSF?: No IF NO, STOP HERE
--- NOTE | 2025-01-15 14:29 | PM.PNCARD ---
Progress Note: A&P Assessment and Plan (1) Ischemic cardiomyopathy: Code(s): I25.5 - Ischemic cardiomyopathy Status: Acute (2) Acute non-ST elevation myocardial infarction (NSTEMI): Onset Date: 01/2025 Code(s): I21.4 - Non-ST elevation (NSTEMI) myocardial infarction Status: Acute (3) A-fib: Qualifiers: Atrial fibrillation type: longstanding persistent Qualified Code(s): I48.11 - Longstanding persistent atrial fibrillation Code(s): I48.91 - Unspecified atrial fibrillation Status: Acute Plan 69-year-old woman with hypertension who presented with chest pain found have new onset atrial fibrillation and non ST-elevation [place] for which he had underwent primary PCI and is now doing well. NSTEMI -status post PCI -continue aspirin 81 mg p.o. daily for 30 days -continue Plavix 75 mg p.o. daily indefinitely -continue atorvastatin 80 mg every evening Ischemic cardiomyopathy -continue metoprolol succinate 50 mg p.o. daily and losartan 25 mg p.o. daily -the repeat transthoracic echocardiogram in outpatient setting Paroxysmal atrial fibrillation -continue Eliquis 5 mg p.o. b.i.d. -continue metoprolol succinate 50 mg p.o. daily -outpatient cardioversion in 4-6 weeks with SAMIR guidance No further inpatient workup warranted at this time. Please call with additional questions. Subjective Date/time seen: 01/15/25 14:29 Interval history: No chest pain. Occasional palpitations that correlated with rapid ventricular rates. Review of Systems Cardiovascular: Cardiovascular: Reports as per HPI Respiratory: Respiratory: Reports as per HPI Exam Const: General: comfortable HENMT: Mouth: Yes moist mucous membranes Eyes: EOM: EOMs intact bilaterally Neck: Neck: no JVD Resp: Effort & Inspection: normal respiratory effort Auscultation: clear to auscultation bilaterally Cardio: Rate: regular rate Rhythm: regular rhythm GI: GI Palp: Yes Soft to palpation Extrem: General: no pedal edema Objective Data Vital Signs Vital Signs: Vital Signs - 24 hr 01/14/25 15:33 01/14/25 16:00 01/14/25 16:00 Temperature 36.6 C Pulse Rate 81 77 Respiratory Rate 18 Blood Pressure 120/81 Pulse Oximetry 97 Oxygen Delivery Room Air 01/14/25 18:00 01/14/25 20:00 01/14/25 20:00 Temperature 36.8 C Pulse Rate 81 84 82 Respiratory Rate 14 Blood Pressure 115/69 Pulse Oximetry 99 Oxygen Delivery 01/14/25 20:00 01/14/25 22:00 01/15/25 00:00 Temperature 36.6 C Pulse Rate 91 110 H Respiratory Rate 14 Blood Pressure 130/58 L Pulse Oximetry 98 Oxygen Delivery Room Air 01/15/25 00:00 01/15/25 00:00 01/15/25 02:00 Temperature Pulse Rate 94 94 Respiratory Rate Blood Pressure Pulse Oximetry Oxygen Delivery Room Air 01/15/25 04:00 01/15/25 04:00 01/15/25 04:00 Temperature 36.8 C Pulse Rate 110 H 117 H Respiratory Rate 14 Blood Pressure 117/60 Pulse Oximetry 96 Oxygen Delivery Room Air 01/15/25 06:00 01/15/25 08:00 01/15/25 08:00 Temperature 37.1 C Pulse Rate 82 60 107 H Respiratory Rate 16 Blood Pressure 128/79 Pulse Oximetry 96 Oxygen Delivery 01/15/25 08:24 01/15/25 10:00 01/15/25 12:00 Temperature Pulse Rate 119 H 100 85 Respiratory Rate Blood Pressure Pulse Oximetry Oxygen Delivery 01/15/25 12:00 Temperature 37.0 C Pulse Rate 48 L Respiratory Rate 16 Blood Pressure 119/57 L Pulse Oximetry 99 Oxygen Delivery Intake/Output Intake/Output: Intake & Output 01/12/25 01/13/25 01/14/25 01/15/25 23:59 23:59 23:59 23:59 Intake Total 665 1150 1700 680 Output Total 350 1800 900 Balance 665 800 -100 -220 Meds/Results Medications: Active Medications Generic Name Dose Route Start Last Admin Trade Name Freq PRN Reason Stop Dose Admin Amoxicillin/Clavulanate Potassium 1 tablet 01/13/25 21:00 01/15/25 08:24 Amoxicillin/Clavulanate K 500-125 Mg Tab PO 01/18/25 21:00 1 tablet Q12HR SABAS Administration Apixaban 5 mg 01/13/25 21:00 01/15/25 08:23 Apixaban 5 Mg Tablet PO 5 mg Q12HR SABAS Administration Aspirin 81 mg 01/13/25 09:00 01/15/25 08:23 Aspirin 81 Mg Enteric Tablet PO 81 mg QAM SABAS Administration Atorvastatin Calcium 80 mg 01/12/25 21:00 01/14/25 21:07 Atorvastatin 40 Mg Tablet PO 80 mg QHS SABAS Administration Clopidogrel Bisulfate 75 mg 01/13/25 09:00 01/15/25 08:23 Clopidogrel Bisulfate 75 Mg Tablet PO 75 mg QAM SABAS Administration Dextrose 12.5 gm 01/13/25 10:40 Dextrose 50% 25 Gm/50 Ml Syringe IV PUSH PRN PRN Hypoglycemia Protocol Glucagon 1 mg 01/13/25 10:40 Glucagon For Inj 1 Mg Vial IM PRN PRN Hypoglycemia Protocol Glucose 15 gm 01/13/25 10:40 Glucose Oral Gel 15 Gm Of Glucse In 37.5 Gm Tube PO PRN PRN Hypoglycemia Protocol Hydrocortisone 1 applic 01/13/25 21:00 01/15/25 08:26 Hydrocortisone 1% 30 Gm Ointment TOPICAL 1 applic Q12HR SABAS Administration Dextrose 1,000 mls @ 100 mls/hr 01/13/25 10:40 Dextrose 5% 1,000 Ml IVPB PRN PRN Hypoglycemia Protocol Insulin Aspart 3 - 6 units 01/13/25 12:00 01/15/25 09:07 Insulin Aspart (*Bkc) 100 Units/Ml SUB-Q Not Given [facility] Protocol Insulin Aspart 1 - 3 units 01/13/25 21:00 01/14/25 21:20 Insulin Aspart (*Bkc) 100 Units/Ml SUB-Q Not Given HS SABAS Protocol Losartan Potassium 25 mg 01/14/25 09:00 01/15/25 08:24 Losartan Potassium 25 Mg Tablet PO 25 mg DAILY SABAS Administration Metoprolol Succinate 50 mg 01/13/25 10:40 01/15/25 08:24 Metoprolol Succinate Ext Rel 50 Mg Tabcr PO 50 mg QAM SABAS Administration Perflutren Lipid Microsphere 0 ml 01/12/25 22:00 Perflutren Lipid Microspheres 1.5 Ml Vial Diluted To 10 Ml Total Volume IV PUSH 01/15/25 22:00 ONCE PRN adequate visualization Protocol Radiology Results: ITS Impressions Chest X-Ray 01/12/25 06:46 IMPRESSION: 1. No acute cardiopulmonary findings. Head CT 01/12/25 07:44 IMPRESSION: 1. No acute intracranial findings. Chest CTA 01/12/25 07:47 IMPRESSION: 1. No PE or other acute cardiopulmonary findings. Abdomen Ultrasound 01/14/25 13:13 IMPRESSION: 1. Normal right upper quadrant ultrasound status post cholecystectomy. Labs Labs: Laboratory Results - last 24 hr 01/14/25 01/14/25 01/15/25 16:31 21:16 04:21 WBC 7.4 RBC 4.02 L Hgb 11.8 L Hct 36.3 L MCV 90.3 MCH 29.4 MCHC 32.5 RDW 13.3 Plt Count 186 MPV 9.4 Immature Gran % (Auto) 0.7 H Neut % (Auto) 59.9 Lymph % (Auto) 28.1 [place] % (Auto) 7.4 Eos % (Auto) 3.4 Baso % (Auto) 0.5 Lymph # (Auto) 2.08 [place] # (Auto) 0.6 Eos # (Auto) 0.3 Baso # (Auto) 0.0 Abs Immat Gran (auto) 0.05 H Absolute Neuts (auto) 4.4 Absolute Nucleated RBC 0.000 Nucleated RBC % 0.0 Sodium 135 L Potassium 3.4 Chloride 107 Carbon Dioxide 26 Anion Gap 2 L BUN 11 Creatinine 0.71 Estim Creat Clear Calc 85 Estimated GFR > 60 Glucose 136 H POC Capillary Glucose 218 H 131 H Calcium 8.4 Total Bilirubin 1.1 AST 71 H ALT 46 H Alkaline Phosphatase 78 Total Protein 6.0 L Albumin 3.2 L 01/15/25 07:25 WBC RBC Hgb Hct MCV MCH MCHC RDW Plt Count MPV Immature Gran % (Auto) Neut % (Auto) Lymph % (Auto) [place] % (Auto) Eos % (Auto) Baso % (Auto) Lymph # (Auto) [place] # (Auto) Eos # (Auto) Baso # (Auto) Abs Immat Gran (auto) Absolute Neuts (auto) Absolute Nucleated RBC Nucleated RBC % Sodium Potassium Chloride Carbon Dioxide Anion Gap BUN Creatinine Estim Creat Clear Calc Estimated GFR Glucose POC Capillary Glucose 148 H Calcium Total Bilirubin AST ALT Alkaline Phosphatase Total Protein Albumin
--- NOTE | 2025-01-15 16:31 | PC.NURSE ---
[place] order on plavix from [facility] states to take daily while discharge order states bid, nini is going to call dr ruffin for clarification. Pt does not want to stay and requests we call her with the answer at [phone]
== END 2025-01-15 16:17 | disposition home or self-care (01) | DRG 322 ==
LOC: ANHED 07:27 → ANHIMU 09:17
PROVIDERS: Emergency Medicine; Internal Medicine; Admitting Provider Internal Medicine; Emergency Provider Student in an Organized Health Care Education/Training Program; PCP Family Medicine Adolescent Medicine; Visit Provider Student in an Organized Health Care Education/Training Program
PROC: 4A023N7 Measurement of Cardiac Sampling and Pressure, Left Heart, Percutaneous Approach (ICD-10-PCS; CPT 93452; principal; 2025-01-12 10:00)
PROC: 4A023N7 Measurement of Cardiac Sampling and Pressure, Left Heart, Percutaneous Approach (ICD-10-PCS; 2025-01-12 10:00)
PROC: 4A023N7 Measurement of Cardiac Sampling and Pressure, Left Heart, Percutaneous Approach (ICD-10-PCS; 2025-01-12 10:00)
DX: I21.4 Non-ST elevation (NSTEMI) myocardial infarction (principal); Z68.42 Body mass index [BMI] 45.0-49.9, adult; E11.9 Type 2 diabetes mellitus without complications; E66.01 Morbid (severe) obesity due to excess calories; E78.5 Hyperlipidemia, unspecified; G47.33 Obstructive sleep apnea (adult) (pediatric); I48.91 Unspecified atrial fibrillation; I10 Essential (primary) hypertension; I25.5 Ischemic cardiomyopathy; I48.0 Paroxysmal atrial fibrillation; M51.369 Other intervertebral disc degeneration, lumbar region without mention of lumbar back pain or lower extremity pain; N61.0 Mastitis without abscess; R82.71 Bacteriuria; R74.8 Abnormal levels of other serum enzymes; Z79.84 Long term (current) use of oral hypoglycemic drugs; Z90.49 Acquired absence of other specified parts of digestive tract
CPT/HCPCS: 36415; 70450; 71046; 71275; 76705; 80053; 80061; 81001; 82550; 82948; 83605; 83690; 83735; 83880; 84439; 84443; 84480; 84484; 85025; 85610; 85730; 87086; 87186; 92978; 93005; 93458; 96374; 96375; 99285; A9270; C1725; C1753; C1769; C1874; C1887; C1894; C8929; C9600; G0378; J1171; J1200; J1327; J1644; J1815; J2003; J2250; J2305; J2404; J2405; J3010; J7030; J7040; J7120; Q9957; Q9967

== ENCOUNTER 2025-01-31 11:18 | Outpatient (CLI) | payer MEDICARE, SELFPAY ==
--- NOTE | ~2025-01-31 | CT_ITS ---
EXAMINATION: CT abdomen pelvis w con DATE: 01/31/2025 11:43 INDICATION: Right upper quadrant abdominal pain. Sclerosing mesenteritis. TECHNIQUE: Computed tomography (CT) of the abdomen and pelvis was performed with 100 mL Omnipaque 350 intravenous contrast. Automated exposure control and iterative reconstruction technique were employed. The dose-length product was 1112.91 mGy-cm. COMPARISON: CT abdomen and pelvis 06/21/2020 FINDINGS: The visualized portions of the lung bases demonstrate mild atelectasis. No pleural effusion. The heart size is normal. 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 No pericardial effusion. There are cysts in the liver measuring up to 1.6 cm. There are changes of cholecystectomy. The spleen, pancreas, and adrenal glands are normal. There is cortical thinning of the kidneys. There is a 15 mm cyst in right kidney. There is diverticulosis of the colon without evidence of diverticulitis. The appendix is normal. There are no pathologically enlarged lymph nodes. There is no free intraperitoneal fluid. There is stable fat stranding at the root of the small bowel mesentery, likely scarring. There is moderate lumbar spondylosis. There are bridging endplate osteophytes at multiple levels in the thoracic spine, consistent with diffuse idiopathic skeletal hy perostosis (DISH). IMPRESSION: 1. No etiology for the patient's symptoms. Reviewed, dictated and finalized at location E.
== END 2025-01-31 11:19 | disposition home or self-care (01) ==
LOC: MICIMG 11:19
PROVIDERS: PCP Family Medicine Adolescent Medicine; Visit Provider Family Medicine
DX: K65.4 Sclerosing mesenteritis (principal)
CPT/HCPCS: 74177; Q9967

== ENCOUNTER 2025-02-21 01:41 | Day surgery (SDC) | payer MEDICARE, SELFPAY ==
[2025-02-19 10:18] VITALS: BMI 45.8
--- NOTE | 2025-02-21 12:30 | ECG_ITS ---
Test Date: 2025-02-21 12:35:33 Measurements Intervals [place] Rate: 89 P: 0 VA: 0 QRS: 21 QRSD: 89 T: 110 QT: 372 QTc: 453 Interpretive Statements ATRIAL FIBRILLATION LOW QRS VOLTAGE IN EXTREMITY LEADS [QRS DEFLECTION < 0.5 mV IN LIMB LEADS] ANTEROSEPTAL MYOCARDIAL INFARCTION , POSSIBLY RECENT [40+ ms Q WAVE IN V1-V4] ACUTE MD ABNORMAL ECG Compared to ECG 01/12/2025 09:47:47 Ventricular premature complex(es) no longer present Aberrant conduction of supraventricular beat(s) no longer present Myocardial infarct finding still present Electronically Signed On 02-21-2025 17:17:06 DISABILITIES CAREGIVER by Brian Zepeda M.D.
[2025-02-21 12:52] VITALS: BP 115/75; PULSE 74; RESP 19; TEMP 36.8; O2SAT 100
[2025-02-21 13:22] LABS: Anion Gap 8 mmol/L (4-12); Blood Urea Nitrogen 15 mg/dL (7-17); Calcium 9.2 mg/dL (8.4-10.2); Carbon Dioxide 23 mmol/L (22-30); Chloride 105 mmol/L (98-107); Estimated CRCL calculation 71 ml/min; Estimated Glomerular Filt Rate > 60; Glucose 118 mg/dL (65-110); Magnesium 2.1 mg/dL (1.6-2.3); Potassium 3.8 mmol/L (3.4-5.0); Sodium 136 mmol/L (137-145)
--- NOTE | 2025-02-21 13:56 | WPDANESEPPF ---
Anes - Initial Pre Proc Eval Procedure: Operation Date: 02/21/25 14:00 Proposed Procedures p Electrical Cardioversion - Theron Jones MD Date/Time: 02/21/25 13:56 Surgeon: Theron Jones MD Pre Op Diagnosis: A Fib Patient Data Age: 69 Gender: F Height: 1.68 m Weight: 126.3 kg Last Vital Signs Temp 98.2 F 02/21/25 12:52 Pulse 74 02/21/25 12:52 Resp 19 02/21/25 12:52 BP 115/75 02/21/25 12:52 Pulse Ox 100 02/21/25 12:52 O2 Del Method Room Air 02/21/25 12:52 Allergies Allergy/AdvReac Type Severity Reaction Status Date / Time Sulfa (Sulfonamide Allergy Intermediate Rash Verified 01/24/25 15:37 Antibiotics) morphine Allergy Mild Rash Verified 01/24/25 15:37 cefadroxil Allergy Unknown Rash Verified 01/24/25 15:37 meloxicam Allergy Unknown Rash Verified 01/24/25 15:37 metformin AdvReac Severe Diarrhea Verified 01/24/25 15:37 lisinopril AdvReac Intermediate cough Verified 01/24/25 15:37 Home Medications ?Medication ?Instructions ?Recorded ?Confirmed ?Type blood-glucose meter (OneTouch #1 ea 11/13/21 01/24/25 Rx Ultra2 Meter kit) blood sugar diagnostic (OneTouch #100 ea 09/27/23 01/24/25 Rx Ultra Test strips) pen needle, diabetic 32 gauge x #100 ea 10/16/24 01/24/25 Rx 1/4 lancets 30 gauge (OneTouch #100 ea 11/29/24 01/24/25 Rx UltraSoft 2 Lancet) amlodipine 5 mg tablet 5 mg PO DAILY 30 days #90 tabs 01/15/25 02/19/25 Rx apixaban 5 mg tablet (Eliquis) 5 mg PO Q12HR 30 days #60 tabs 01/15/25 02/19/25 Rx aspirin 81 mg tablet,delayed 81 mg PO QAM 30 days #30 tabs 01/15/25 02/19/25 Rx release Held on 02/19/25. Instructions: .Provider Order atorvastatin 40 mg tablet 80 mg (2 x 40 mg) PO QHS 30 days 01/15/25 02/19/25 Rx #60 tabs clopidogrel 75 mg tablet 75 mg PO QAM 90 days #90 tabs 01/15/25 02/19/25 Rx glipizide 5 mg tablet 5 mg PO QHS 30 days #90 tabs 01/15/25 02/19/25 Rx losartan 25 mg tablet 25 mg PO DAILY 30 days #30 tabs 01/15/25 02/19/25 Rx tirzepatide 15 mg/0.5 mL 15 mg (0.5 mL) subcut WEEKLY 30 01/15/25 02/19/25 Rx subcutaneous pen injector days #2 mL (Mounjaro) empagliflozin 10 mg tablet 10 mg PO DAILY #90 tabs 01/24/25 02/19/25 Rx (Jardiance) metoprolol succinate 50 mg 100 mg PO QAM 02/19/25 02/19/25 History tablet,extended release 24 hr Laboratory Tests 02/21/25 12:42 Sodium 136 L mmol/L (137-145) Potassium 3.8 mmol/L (3.4-5.0) Chloride 105 mmol/L (98-107) Carbon Dioxide 23 mmol/L (22-30) Anion Gap 8 mmol/L (4-12) BUN 15 mg/dL (7-17) Creatinine 0.86 mg/dL (0.7-1.0) Estim Creat Clear Calc 71 ml/min Estimated GFR > 60 (59 - ) Glucose 118 H mg/dL (65-110) Calcium 9.2 mg/dL (8.4-10.2) Magnesium 2.1 mg/dL (1.6-2.3) Patient hx anesthesia problems: none Family hx anesthesia problems: none Results Review: All pre-operative results and documents have been reviewed as part of the pre-operative evaluation. [facility] Past Medical History Medical History (Updated 02/05/25 @ 07:58 by Abraham Grove DO) Heart failure with reduced ejection fraction Type 2 diabetes mellitus with hyperglycemia Ischemic cardiomyopathy DDD (degenerative disc disease), lumbar History of colon polyps Ankylosing spondylitis Hypertension Surgical History Surgical History (Updated 01/12/25 @ 14:50 by Raul Green MD) History of section 1983 History of cholecystectomy 1998 History of adenoidectomy History of tonsillectomy Family History Family History Sibling Family history of cardiovascular disease Family history of malignant neoplasm of breast Grandparent Cerebrovascular accident Family history of congestive heart failure Mother Family history of arthritis Family history of lung cancer Father Malignant neoplasm of prostate Social History Social History Smoking status: Never smoker Second hand tobacco smoke exposure: No Alcohol intake: never Substance use: never Substance use type: does not use Do You Feel Safe in your Home?: Yes Lack of Transportation: No Lack of Food: Never True Current Housing: I Have Housing Concerned About Future Housing: No Difficulty Paying Gas/Electric Bills: No Difficulty Paying for Meds: No Currently Unemployed: No Education: Associate Degree Difficulty w/ Childcare or Family Care: No Living arrangements: with family Occupation/Education: occupation Gender identity (if verbalized by the patient): Female Sexual Orientation (if Verbalized by the Patient): Straight or Heterosexual Spiritual care concerns: No Agree to blood products: Yes Anes - Eval Final PreProcedure Day of Procedure 02/21/25 13:56 Patient weight: morbidly obese Heart: regular rate and rhythm Lungs: clear to auscultation Airway: Mallampati scale class III Neurological: alert and oriented Last oral intake: >/= 8 hours ASA classification: IV Emergent: no Anesthetic plan: proceed Anesthesia type and monitoring: general GIVS and standard monitoring Results Review: All pre-operative results and documents have been reviewed as part of the pre-operative evaluation. Informed Consent: The patient's anesthetic plan and its attendant risks and benefits were discussed with the patient/family/POA. Questions were solicited and answers provided to the satisfaction of the patient/family/POA.
--- NOTE | 2025-02-21 14:15 | ECG_ITS ---
Test Date: 2025-02-21 14:11:20 Measurements Intervals [place] Rate: 68 P: -48 MI: 105 QRS: 3 QRSD: 76 T: 38 QT: 375 QTc: 399 Interpretive Statements SINUS RHYTHM WITH SINUS ARRHYTHMIA ANTEROSEPTAL MYOCARDIAL INFARCTION , POSSIBLY RECENT [40+ ms Q WAVE AND/OR ST/T ABNORMALITY IN V3/V4] ACUTE OK ABNORMAL ECG Compared to ECG 02/21/2025 12:35:33 Atrial fibrillation no longer present Myocardial infarct finding still present Electronically Signed On 02-21-2025 17:19:35 FINANCIAL AID COORDINATOR by Brian Zepeda M.D.
--- NOTE | 2025-02-21 14:24 | WPDCARDPROC ---
Cardiac Cath Procedure Note Date of procedure:: 02/21/25 Performing physician:: Theron oJnes MD Indication:: Persistent atrial fibrillation Brief clinical history:: This is a 69-year-old woman with recently diagnosed coronary disease who received LAD stenting at which time she was also noted to be in atrial fibrillation. The patient has been anticoagulated as an outpatient with apixaban and rate controlled with metoprolol. She is admitted today for attempt at restoring sinus rhythm electrically. Procedure Procedure performed:: DC cardioversion Sedation/Medication given:: Sedation per the Anesthesia Service Estimated blood loss:: No blood loss Procedure note:: Patient was brought to the cardiac catheterization lab postanesthesia area in the postabsorptive state defibrillator patches were placed in the AP position peripheral IV access was established in the right upper extremity. Following this she was sedated by the anesthesia service. When very good sedation was achieved with propofol we delivered a 200 joule counter shock in a synchronized fashion which restored sinus rhythm. Findings:: As above Conclusion:: Successful uncomplicated DC cardioversion using 200 joules x1 shock terminating atrial fibrillation and restoring sinus rhythm Theron Jones MD [facility]
[2025-02-21 14:30] VITALS: BP 104/55; PULSE 68; RESP 16; O2SAT 100
[2025-02-21 14:45] VITALS: BP 117/65; PULSE 62; RESP 12; O2SAT 100
[2025-02-21 15:00] VITALS: BP 115/69; PULSE 66; RESP 20; O2SAT 99
[2025-02-21 15:15] VITALS: BP 123/73; PULSE 67; RESP 18; O2SAT 100
== END 2025-02-21 15:37 | disposition home or self-care (01) ==
PROVIDERS: PCP Family Medicine Adolescent Medicine; Visit Provider Specialist
PROC: 5A2204Z Restoration of Cardiac Rhythm, Single (ICD-10-PCS; principal; 2025-02-21 14:00)
DX: I48.19 Other persistent atrial fibrillation (principal); Z79.01 Long term (current) use of anticoagulants; E66.01 Morbid (severe) obesity due to excess calories; Z68.41 Body mass index [BMI] 40.0-44.9, adult
CPT/HCPCS: 36415; 80048; 83735; 92960; J2003; J2704; J7040

== ENCOUNTER 2025-03-23 13:26 | Outpatient (CLI) | payer MEDICARE, SELFPAY ==
--- NOTE | ~2025-03-23 | XR_ITS ---
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 Findings: No acute fracture or malalignment. Moderate degenerative changes Soft tissues unremarkable. Impression: No acute fracture or malalignment. Reviewed, dictated and finalized at location P. SHADES SUPERVISOR Impression: No acute fracture or malalignment.
--- NOTE | ~2025-03-23 | XR_ITS ---
EXAMINATION: XR shoulder LT min 2V, 03/23/2025 13:30 [employer] [facility] OFFICE SUPERVISOR HISTORY: M19.011 - Primary osteoarthritis, right shoulder COMPARISON: No comparisons available. Findings: No acute fracture or malalignment. Severe degenerative changes Soft tissues unremarkable. Impression: No acute fracture or malalignment. Reviewed, dictated and finalized at location P. [facility] OFFICE SUPERVISOR Impression: No acute fracture or malalignment.
== END 2025-03-23 13:27 | disposition home or self-care (01) ==
LOC: MICIMG 13:28
PROVIDERS: PCP Family Medicine Adolescent Medicine; Visit Provider Orthopaedic Surgery
DX: M19.011 Primary osteoarthritis, right shoulder (principal); M19.012 Primary osteoarthritis, left shoulder
CPT/HCPCS: 73030